=== PATIENT | female | born 1960 | race Asian ===

== ENCOUNTER 2018-01-30 00:48 | Outpatient (RCR) | payer MEDICAID, SELFPAY | END 2018-03-01 | LOC: INF 01-31 00:48 | PROVIDERS: PCP Nurse Practitioner Gerontology; Visit Provider Nurse Practitioner Gerontology | DX: D63.1 Anemia in chronic kidney disease (principal); N18.5 Chronic kidney disease, stage 5; Z94.0 Kidney transplant status | CPT/HCPCS: 96372; J0881 ==

== ENCOUNTER → 2018-01-31 01:09 | Outpatient (CLI) | payer MEDICAID, SELFPAY ==
[2018-01-31 10:17] LABS: Kit/Specimen SENT
[2018-01-31 10:21] LABS: HCT 30.6 % (36.0-46.0); HGB 9.5 g/dL (12.0-15.5)
[2018-01-31 11:18] LABS: Anion Gap 12.3 mmol/L (3-11); CO2 22.7 mmol/L (21.0-32.0); Calcium 8.9 mg/dL (8.5-10.1); Chloride 107 mmol/L (98-107); Estimated GFR 6.76 (mL/min/1.73m2); Glucose 103 mg/dL (70-100); Potassium 4.8 mmol/L (3.5-5.1); Sodium 142 mmol/L (136-145)
[2018-01-31 11:38] LABS: BUN 88 mg/dL (7-18)
[2018-01-31 11:39] LABS: CREATININE 6.32 mg/dL (0.55-1.02)
== END ==
PROVIDERS: PCP Nurse Practitioner Gerontology; Visit Provider Internal Medicine Nephrology
DX: N18.5 Chronic kidney disease, stage 5 (principal); D63.1 Anemia in chronic kidney disease; Z94.0 Kidney transplant status; Z01.818 Encounter for other preprocedural examination
CPT/HCPCS: 36415; 80048; 85014; 85018

== ENCOUNTER 2018-03-05 02:58 | Outpatient (CLI) | payer MEDICAID, SELFPAY ==
[2018-03-05 09:34] LABS: Kit/Specimen SENT
[2018-03-05 09:40] LABS: HCT 26.9 % (36.0-46.0); HGB 8.7 g/dL (12.0-15.5)
[2018-03-05 09:47] LABS: Anion Gap 9.6 mmol/L (3-11); CO2 21.4 mmol/L (21.0-32.0); Calcium 8.4 mg/dL (8.5-10.1); Chloride 103 mmol/L (98-107); Estimated GFR 7.12 (mL/min/1.73m2); Glucose 108 mg/dL (70-100); Potassium 4.9 mmol/L (3.5-5.1); Sodium 134 mmol/L (136-145)
[2018-03-05 10:00] LABS: BUN 84 mg/dL (7-18); CREATININE 6.04 mg/dL (0.55-1.02)
== END 2018-03-05 03:18 ==
PROVIDERS: Internal Medicine Nephrology; PCP Nurse Practitioner Gerontology; Visit Provider Internal Medicine Nephrology
DX: N18.5 Chronic kidney disease, stage 5 (principal); D63.1 Anemia in chronic kidney disease; Z94.0 Kidney transplant status
CPT/HCPCS: 36415; 80048; 85014; 85018

== ENCOUNTER 2018-03-05 09:55 | Outpatient (RCR) | payer MEDICAID, SELFPAY | END 2018-03-31 23:59 | disposition home or self-care (01) | LOC: INF 09:55 | PROVIDERS: PCP Nurse Practitioner Gerontology; Visit Provider Nurse Practitioner Gerontology | DX: D63.1 Anemia in chronic kidney disease (principal); N18.5 Chronic kidney disease, stage 5; Z94.0 Kidney transplant status | CPT/HCPCS: 96372; J0881 ==

== ENCOUNTER 2018-04-02 01:04 | Outpatient (RCR) | payer MEDICAID, SELFPAY | END 2018-05-01 23:59 | disposition home or self-care (01) | LOC: INF 01:04 | PROVIDERS: PCP Nurse Practitioner Gerontology; Visit Provider Nurse Practitioner Gerontology | DX: D63.1 Anemia in chronic kidney disease (principal); N18.5 Chronic kidney disease, stage 5; Z94.0 Kidney transplant status | CPT/HCPCS: 96372; J0881 ==

== ENCOUNTER 2018-04-02 02:26 | Outpatient (CLI) | payer MEDICAID, SELFPAY ==
[2018-04-02 10:20] LABS: Kit/Specimen SENT
[2018-04-02 10:32] LABS: HCT 30.9 % (36.0-46.0); HGB 9.6 g/dL (12.0-15.5)
[2018-04-02 11:02] LABS: Iron 116 ug/dL (50-175); Total Iron Binding Capacity 230 ug/dL (250-450); Transferrin Sat 50 % (15-50)
[2018-04-02 11:39] LABS: Anion Gap 10.4 mmol/L (3-11); BUN 77 mg/dL (7-18); CO2 19.6 mmol/L (21.0-32.0); Calcium 8.4 mg/dL (8.5-10.1); Chloride 110 mmol/L (98-107); Estimated GFR 6.28 (mL/min/1.73m2); Glucose 102 mg/dL (70-100); Potassium 4.8 mmol/L (3.5-5.1); Sodium 140 mmol/L (136-145)
[2018-04-02 11:40] LABS: Ferritin 2000 ng/mL (8-388)
[2018-04-02 11:45] LABS: CREATININE 6.74 mg/dL (0.55-1.02)
== END 2018-04-02 02:46 ==
PROVIDERS: PCP Nurse Practitioner Gerontology; Visit Provider Internal Medicine Nephrology
DX: N18.5 Chronic kidney disease, stage 5 (principal); D63.1 Anemia in chronic kidney disease; Z94.0 Kidney transplant status
CPT/HCPCS: 36415; 80048; 82728; 83540; 83550; 85014; 85018

== ENCOUNTER 2018-04-22 00:50 | Outpatient (CLI) | payer MEDICAID, SELFPAY ==
[2018-04-22 11:13] LABS: HCT 28.5 % (36.0-46.0); HGB 9.1 g/dL (12.0-15.5)
[2018-04-22 13:01] LABS: ALT 29 U/L (12-78); AST 34 U/L (15-37); Albumin 3.3 g/dL (3.4-5.0); Alkaline Phosphatase 125 U/L (46-116); Anion Gap 15.6 mmol/L (3-11); BUN 79 mg/dL (7-18); Bilirubin, Total 0.4 mg/dL (0.2-1.0); CO2 20.4 mmol/L (21.0-32.0); Calcium 8.4 mg/dL (8.5-10.1); Chloride 96 mmol/L (98-107); Estimated GFR 6.77 (mL/min/1.73m2); Glucose 104 mg/dL (70-100); Potassium 4.6 mmol/L (3.5-5.1); Sodium 132 mmol/L (136-145)
[2018-04-22 13:12] LABS: CREATININE 6.29 mg/dL (0.55-1.02)
== END 2018-04-22 01:10 ==
PROVIDERS: Nurse Practitioner Family; PCP Nurse Practitioner Gerontology; Visit Provider Internal Medicine Nephrology
DX: L29.9 Pruritus, unspecified (principal); N18.5 Chronic kidney disease, stage 5; D63.1 Anemia in chronic kidney disease
CPT/HCPCS: 36415; 80053; 85014; 85018

== ENCOUNTER 2018-05-03 02:02 | Outpatient (CLI) | payer MEDICAID, SELFPAY ==
[2018-05-03 10:55] LABS: Kit/Specimen SENT
[2018-05-03 11:01] LABS: HCT 27.3 % (36.0-46.0); HGB 8.9 g/dL (12.0-15.5)
== END 2018-05-03 02:22 ==
PROVIDERS: PCP Nurse Practitioner Family; Visit Provider Internal Medicine Nephrology
DX: Z01.818 Encounter for other preprocedural examination (principal); N18.5 Chronic kidney disease, stage 5; D63.1 Anemia in chronic kidney disease; Z94.0 Kidney transplant status
CPT/HCPCS: 36415; 85014; 85018

== ENCOUNTER 2018-05-06 01:32 | Outpatient (RCR) | payer MEDICAID, SELFPAY | END 2018-05-31 23:59 | disposition home or self-care (01) | LOC: INF 01:32 | PROVIDERS: PCP Nurse Practitioner Family; Visit Provider Nurse Practitioner Gerontology | DX: N18.5 Chronic kidney disease, stage 5 (principal); D63.1 Anemia in chronic kidney disease; Z94.0 Kidney transplant status | CPT/HCPCS: 96372; J0881 ==

== ENCOUNTER 2018-06-04 01:00 | Outpatient (RCR) | payer MEDICAID, SELFPAY | END 2018-07-01 23:59 | disposition home or self-care (01) | LOC: INF 01:00 | PROVIDERS: PCP Nurse Practitioner Family; Visit Provider Nurse Practitioner Gerontology | DX: N18.5 Chronic kidney disease, stage 5 (principal); D63.1 Anemia in chronic kidney disease; Z94.0 Kidney transplant status | CPT/HCPCS: 96372; J0881 ==

== ENCOUNTER 2018-06-04 01:08 | Outpatient (CLI) | payer MEDICAID, SELFPAY ==
[2018-06-04 10:07] LABS: HCT 28.4 % (36.0-46.0)
[2018-06-04 10:08] LABS: Kit/Specimen SENT
[2018-06-04 10:15] LABS: Anion Gap 11.9 mmol/L (3-11); CO2 22.1 mmol/L (21.0-32.0); Calcium 8.8 mg/dL (8.5-10.1); Chloride 105 mmol/L (98-107); Glucose 106 mg/dL (70-100); Potassium 4.5 mmol/L (3.5-5.1); Sodium 139 mmol/L (136-145)
[2018-06-04 10:26] LABS: BUN 95 mg/dL (7-18); CREATININE 7.19 mg/dL (0.55-1.02)
== END 2018-06-04 01:28 ==
PROVIDERS: PCP Nurse Practitioner Family; Visit Provider Internal Medicine Nephrology
DX: N18.5 Chronic kidney disease, stage 5 (principal); D63.1 Anemia in chronic kidney disease; Z94.0 Kidney transplant status
CPT/HCPCS: 36415; 80048; 85014; 85018

== ENCOUNTER 2018-06-20 02:57 | Outpatient (CLI) | payer MEDICAID, SELFPAY ==
[2018-06-20 10:38] LABS: Kit/Specimen SENT
== END 2018-06-20 03:17 ==
PROVIDERS: PCP Nurse Practitioner Family; Visit Provider Internal Medicine Nephrology
DX: D63.1 Anemia in chronic kidney disease (principal); Z94.0 Kidney transplant status
CPT/HCPCS: 36415

== ENCOUNTER 2018-07-04 02:22 | Outpatient (RCR) | payer MEDICAID, SELFPAY ==
[2018-07-04] MEDS: Darbepoetin 200 MCG SYR SC (10:22)
== END 2018-08-01 23:59 | disposition home or self-care (01) ==
LOC: INF 02:22
PROVIDERS: PCP Nurse Practitioner Family; Visit Provider Nurse Practitioner Gerontology
DX: N18.5 Chronic kidney disease, stage 5 (principal); D63.1 Anemia in chronic kidney disease; Z94.0 Kidney transplant status
CPT/HCPCS: 96372; J0881

== ENCOUNTER 2018-07-04 02:28 | Outpatient (CLI) | payer MEDICAID, SELFPAY ==
[2018-07-04 09:56] LABS: Kit/Specimen SENT
[2018-07-04 10:03] LABS: HCT 28.2 % (36.0-46.0); HGB 8.8 g/dL (12.0-15.5)
[2018-07-04 10:50] LABS: Anion Gap 10.9 mmol/L (3-11); CO2 24.1 mmol/L (21.0-32.0); Calcium 8.7 mg/dL (8.5-10.1); Chloride 107 mmol/L (98-107); Estimated GFR 6.37 (mL/min/1.73m2); Glucose 97 mg/dL (70-100); Potassium 4.5 mmol/L (3.5-5.1); Sodium 142 mmol/L (136-145)
[2018-07-04 11:04] LABS: BUN 82 mg/dL (7-18)
[2018-07-04 11:05] LABS: CREATININE 6.63 mg/dL (0.55-1.02); Ferritin > 1000 ng/mL (8-388)
[2018-07-04 11:27] LABS: Iron 111 ug/dL (50-175); Total Iron Binding Capacity 207 ug/dL (250-450); Transferrin Sat 54 % (15-50)
== END 2018-07-04 02:48 ==
PROVIDERS: PCP Nurse Practitioner Family; Visit Provider Internal Medicine Nephrology
DX: N18.5 Chronic kidney disease, stage 5 (principal); Z94.0 Kidney transplant status; D63.1 Anemia in chronic kidney disease
CPT/HCPCS: 36415; 80048; 82728; 83540; 83550; 85014; 85018

== ENCOUNTER 2018-08-02 00:26 | Outpatient (RCR) | payer MEDICAID, SELFPAY ==
[2018-08-02] MEDS: Darbepoetin 200 MCG SYR SC (11:19)
== END 2018-08-29 23:59 | disposition home or self-care (01) ==
LOC: INF 00:26
PROVIDERS: PCP Nurse Practitioner Family; Visit Provider Nurse Practitioner Gerontology
DX: N18.5 Chronic kidney disease, stage 5 (principal); D63.1 Anemia in chronic kidney disease
CPT/HCPCS: 96372; J0881

== ENCOUNTER 2018-08-02 00:49 | Outpatient (CLI) | payer MEDICAID, SELFPAY ==
[2018-08-02 10:46] LABS: Kit/Specimen SENT
[2018-08-02 10:53] LABS: HCT 31.5 % (36.0-46.0); HGB 9.9 g/dL (12.0-15.5)
[2018-08-02 11:02] LABS: Anion Gap 13.1 mmol/L (3-11); CO2 20.9 mmol/L (21.0-32.0); Calcium 8.9 mg/dL (8.5-10.1); Chloride 104 mmol/L (98-107); Glucose 110 mg/dL (70-100); Potassium 4.9 mmol/L (3.5-5.1); Sodium 138 mmol/L (136-145)
[2018-08-02 11:17] LABS: BUN 106 mg/dL (7-18)
[2018-08-02 11:18] LABS: CREATININE 8.19 mg/dL (0.55-1.02)
== END 2018-08-02 01:09 ==
PROVIDERS: Internal Medicine Nephrology; PCP Nurse Practitioner Family; Visit Provider Internal Medicine Nephrology
DX: Z01.818 Encounter for other preprocedural examination (principal); N18.5 Chronic kidney disease, stage 5; Z94.0 Kidney transplant status; D63.1 Anemia in chronic kidney disease
CPT/HCPCS: 36415; 80048; 85014; 85018

== ENCOUNTER 2018-08-31 01:36 | Outpatient (CLI) | payer MEDICAID, SELFPAY ==
[2018-08-31 10:34] LABS: Kit/Specimen SENT
[2018-08-31 10:47] LABS: HCT 30.9 % (36.0-46.0); HGB 9.6 g/dL (12.0-15.5)
== END 2018-08-31 01:56 ==
PROVIDERS: PCP Nurse Practitioner Family; Visit Provider Internal Medicine Nephrology
DX: N18.5 Chronic kidney disease, stage 5 (principal); D63.1 Anemia in chronic kidney disease; Z01.818 Encounter for other preprocedural examination
CPT/HCPCS: 36415; 85014; 85018

== ENCOUNTER 2018-09-24 01:28 | Outpatient (RCR) | payer MEDICAID, SELFPAY | END 2018-09-29 23:59 | disposition home or self-care (01) | LOC: INF 01:28 | PROVIDERS: PCP Nurse Practitioner Family; Visit Provider Internal Medicine | DX: R69 Illness, unspecified (principal) ==

== ENCOUNTER 2018-10-02 04:18 | Outpatient (RCR) | payer MEDICAID, SELFPAY ==
[2018-10-02] MEDS: Darbepoetin 300 MCG SYR SC (10:47)
== END 2018-10-29 23:59 | disposition home or self-care (01) ==
LOC: INF 04:18
PROVIDERS: PCP Nurse Practitioner Family; Visit Provider Internal Medicine
DX: N18.5 Chronic kidney disease, stage 5 (principal); D63.1 Anemia in chronic kidney disease
CPT/HCPCS: 96372; J0881

== ENCOUNTER 2018-10-02 04:26 | Outpatient (CLI) | payer MEDICAID, SELFPAY ==
[2018-10-02 10:42] LABS: Kit/Specimen SENT
[2018-10-02 11:11] LABS: HCT 25.5 % (36.0-46.0); HGB 8.3 g/dL (12.0-15.5)
[2018-10-02 11:25] LABS: Iron 180 ug/dL (50-175); Total Iron Binding Capacity 225 ug/dL (250-450); Transferrin Sat 80 % (15-50)
[2018-10-02 12:10] LABS: Ferritin 1999 ng/mL (8-388)
== END 2018-10-02 04:46 ==
PROVIDERS: PCP Nurse Practitioner Family; Visit Provider Internal Medicine Nephrology
DX: N18.5 Chronic kidney disease, stage 5 (principal); D63.1 Anemia in chronic kidney disease; Z01.818 Encounter for other preprocedural examination
CPT/HCPCS: 36415; 82728; 83540; 83550; 85014; 85018

== ENCOUNTER 2018-11-04 15:08 | Outpatient (CLI) | payer MEDICARE, MEDICAID, SELFPAY ==
[2018-11-04 15:31] LABS: Kit/Specimen SENT
[2018-11-04 15:43] LABS: HCT 24.4 % (36.0-46.0); HGB 7.3 g/dL (12.0-15.5)
== END 2018-11-04 15:28 ==
PROVIDERS: Internal Medicine Nephrology; PCP Nurse Practitioner Family; Visit Provider Internal Medicine Nephrology
DX: N18.5 Chronic kidney disease, stage 5 (principal); D63.1 Anemia in chronic kidney disease; Z01.818 Encounter for other preprocedural examination
CPT/HCPCS: 36415; 85014; 85018

== ENCOUNTER 2018-11-05 01:48 | Outpatient (RCR) | payer MEDICAID, SELFPAY | END 2018-11-29 23:59 | disposition home or self-care (01) | LOC: INF 01:48 | PROVIDERS: PCP Nurse Practitioner Family; Visit Provider Internal Medicine | DX: N18.5 Chronic kidney disease, stage 5 (principal); D63.1 Anemia in chronic kidney disease ==

== ENCOUNTER 2018-12-16 01:52 | Outpatient (RCR) | payer MEDICARE, MEDICAID, SELFPAY ==
[2018-12-02] MEDS: Normal Saline Flush 10 ML SYR IVP (10:44)
[2018-12-09] MEDS: Normal Saline Flush 10 ML SYR IVP (10:42)
[2018-12-16] MEDS: Normal Saline Flush 10 ML SYR IVP (10:44)
== END 2018-12-29 23:59 | disposition home or self-care (01) ==
LOC: INF 01:52
PROVIDERS: PCP Nurse Practitioner Family; Visit Provider Internal Medicine
DX: N18.5 Chronic kidney disease, stage 5 (principal); D63.1 Anemia in chronic kidney disease; D50.9 Iron deficiency anemia, unspecified
CPT/HCPCS: 96365; J1756

== ENCOUNTER 2019-02-18 14:21 | Observation (INO) | payer MEDICARE, MEDICAID, SELFPAY ==
[2019-02-18] VITALS (48 sets, daily range): BP systolic 145–195; BP diastolic 58–107; PULSE 69–90; RESP 13–28; TEMP 37–37.2; O2SAT 91–100
[2019-02-18] MEDS: Normal Saline 250 ML IV (14:50)
--- NOTE | 2019-02-18 14:51 | ED.GENADUL_ITS ---
Discharge Plan Disposition Patient Disposition: [facility] INPATIENT Condition: Stable Discharge Details Chief Complaint: Chest Pain Clinical Impression: Chest pain, rule out acute myocardial infarction, Chronic shortness of breath, ESRD on peritoneal dialysis Admit Date/Time: 02/18/19 18:06 Admit Provider: Zenon Perez Attending Provider: Zenon Perez Primary Care Provider: Annabel Macdonald ED Provider: Charu Agosto Medical Decision Making 58-year-old female with history of chronic kidney disease due to hypertension and status post kidney transplant currently on peritoneal dialysis for the past few years who presents with shortness of breath that is worse with sitting over the past several months and chest pain since 1 PM today. EKG on arrival notes a rate of 83, sinus with no acute ST ischemic changes. Upon my assessment, patient appears very uncomfortable, grabbing her chest. Blood pressure hypertensive, otherwise vitals within normal limits. She appears mildly anxious. Labs ordered on arrival by nurse and note a normal white blood cell count, hemoglobin 9.4, BUN 75, creatinine 13, range usually between 6 and 8, last check in August 2018. Troponin 0.11. Chest x-ray negative. Patient given nitro with minimal relief. She was given a dose of Ativan and still appeared uncomfortable. 1600 --patient still appears uncomfortable, moving around and restless in bed. Vitals within normal limits. She denies any chest pain and states she feels short of breath with sitting and is relieved more with sitting forward or standing which she has had for several months. Will place patient on 2 L nasal cannula and give a dose of morphine. As patient cannot stay here due to peritoneal dialysis, will page [facility] for transfer for chest pain. 1700 --discussed with [facility] transfer center -no beds available. Discussed with nephrology Dr. Chowdhury -presentation may be consistent with pericarditis. As for her peritoneal dialysis, she would not need her peritoneal dialysis tonight. Her creatinine in October at [facility] was 12.9. Dr. Christopher recommends admission here overnight for transfer to [facility] in the a.m. once bed available. She likely will need an echo and its possible her membranes are failing with her peritoneal dialysis and she may eventually need hemodialysis. 1729 --discussed with hospitalist -accepts patient for admission. 1844 --discussed with Aly at the [facility] transfer center -who discussed with hospitalist Dr. Whitt -if patient still needing transfer in the a.m., to call [facility] for transfer after 7 AM tomorrow and they will accept patient for transfer. This was discussed with Dr. Perez. Medical Records Medical records reviewed: Yes I reviewed the patient's medical records. Imaging Data Radiologic Study: Radiologist's impression: PA AND LATERAL CHEST: The heart is normal in size. The lungs are clear. The mediastinal structures and pleura appear intact. CONCLUSION: Normal chest. ECG Data Attestation: I personally reviewed and interpreted this ECG (s) as follows: Interpretation: Rate of 83, sinus, no acute ST elevation or depression. UT 144. QTc 463. QRS 92. No acute ST elevation or depression. HPI General Mode of arrival: ambulatory . Date/Time Provider Initiated Documentation: 02/18/19 14:40 . Limitations to Documentation: no limitations . Information obtained by: patient . HPI Narrative: Patient is a 58-year-old female with a history of end-stage renal disease with kidney transplant due to hypertension, vaginal neoplasia, anemia who presents with shortness of breath for several months and chest pain since 1 PM today. Patient states she was sitting in a car today after breakfast when she felt short of breath and developed substernal chest pain. She denies radiation of pain. She admits to a dry cough. She denies any fever, nausea, vomiting or dizziness. She states she has had chronic shortness of breath for the past several months which is brought on with sitting and resolved with leaning forward or standing. She states she has been doing home peritoneal dialysis for the past several years and lasted today at noon. Related Data Home Medications Medication Instructions Recorded Confirmed allopurinol 100 mg PO DAILY 02/18/19 02/18/19 amoxicillin 2,000 mg 02/18/19 calcitriol See Rx Instructions .ROUTE .COMPLEX 02/18/19 02/18/19 diltiazem HCl [DILT-XR] 120 mg PO DAILY 02/18/19 02/18/19 lisinopril 5 mg PO DAILY 02/18/19 02/18/19 prednisone 20 mg PO DAILY 02/18/19 02/18/19 sevelamer carbonate [Renvela] 1,600 mg 02/18/19 tacrolimus 1 mg PO BID 02/18/19 02/18/19 Allergies Allergy/AdvReac Type Severity Reaction Status Date / Time lidocaine Allergy Severe RASH Unverified 02/13/19 15:23 milk AdvReac Mild DIARRHEA Unverified 02/13/19 15:23 General Stated Complaint: Chest Pain CJ: 2 Review of Systems Review of Systems All systems reviewed & are unremarkable except as noted in HPI and below Constitutional Reports as per HPI, Denies chills and Denies fever(s) Eyes Denies blurry vision ENT Denies dizziness, Denies sore throat and Denies throat swelling Cardiovascular Reports chest pain and Reports dyspnea Respiratory Denies cough and Reports dyspnea Gastrointestinal Denies abdominal pain, Denies diarrhea and Denies vomiting Genitourinary Denies hematuria and Denies dysuria Musculoskeletal Denies back pain and Denies numbness Integumentary/Breasts Denies lesions and Denies rash Neurologic Denies dizziness, Denies focal weakness and Denies numbness Allergic/Immunologic Denies throat swelling [facility] Medical History Anemia in chronic kidney disease (CKD) (Chronic) Chronic kidney disease (CKD) stage G5/A3, glomerular filtration rate (GFR) less than or equal to 15 mL/min/1.73 square meter and albuminuria creatinine ratio greater than 300 mg/g (Chronic) Essential hypertension (Chronic 12/24/12) Gout (Inactive 01/16/18) Hypertensive nephrosclerosis (Inactive) Kidney replaced by transplant (Chronic ~10/04/05) Rectocele (Acute) Renal failure (Resolved) Secondary hyperparathyroidism of renal origin (Chronic) 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 Abdominal hysterectomy (01/16/09) section Endometrial Ablation laser of VAIN 2. S/p cadaver renal transplant (Inactive ~10/04/05) Social History Smoking/Tobacco Use Status: Never Alcohol Intake: never Substance use type: does not use Adopted: Yes Household members: other Details: H-Dennis. 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 Robert works in computer development Exam Const General: cooperative, healthy appearing, no acute distress and anxious HENMT Head: normal to inspection Face and sinus: normal facial exam Eyes General: appearance normal, both eyes and all related structures EOM: EOM intact bilaterally Neck Neck: normal visual inspection and No submandibular swelling Lymphatic: no lymphadenopathy noted Chest Chest: normal inspection of the chest and no tenderness Resp Effort & Inspection: normal respiratory effort and able to speak in complete sentences Auscultation: clear to auscultation bilaterally Cardio Rate: regular rate Rhythm: regular rhythm GI Inspection: normal to inspection and other (Peritoneal dialysis catheter noted RLQ, no signs of drainage) Palpation: soft, not firm, not rigid and nontender Auscultation: normal bowel sounds Skin General skin exam: no rashes or lesions noted Neuro General: alert, awake and oriented x3 Cognition: normal cognition Speech: speech normal Motor: muscle tone normal throughout Sensory Exam: no sensory deficits noted Extrem General: normal to inspection, full ROM, normal capillary refill, no calf tenderness bilaterally and no edema Psych Appearance: grossly normal Mental Status: mental status grossly normal Speech and Movement: speech and movement normal Affect: normal affect Course Vital Signs Pulse Oximetry 100 02/18/19 14:27 Temperature 98.6 F 02/18/19 14:32 Temperature Source Skin 02/18/19 14:32 Pulse 75 02/18/19 14:32 Pulse 78 02/18/19 14:31 Respiratory Rate 22 02/18/19 14:32 Respiratory Effort 02/18/19 14:43 Blood Pressure 185/88 H 02/18/19 14:32 Blood Pressure Mean 109 02/18/19 14:31 Blood Pressure Position Supine 02/18/19 14:32 Pulse Oximetry 100 02/18/19 14:32 Oxygen Delivery Method Room Air 02/18/19 14:32 Oxygen Flow Rate 0 02/18/19 14:32
[2019-02-18 14:57] LABS: Abs Immature Grans 0.02 k/cumm (0.0-0.09); Absolute Basophil Count 0.02 k/cumm (0.0-0.2); Absolute Eosinophil Count 0.32 k/cumm (0.0-0.7); Absolute Lymphocyte Count 1.34 k/cumm (1.2-3.4); Absolute Monocyte Count 0.44 k/cumm (0.11-0.7); Absolute Neutrophil Count 6.42 k/cumm (1.2-6.7); Basophils % 0.2; Eosinophils % 3.7; HGB 9.4 g/dL (12.0-15.5); Immature Grans % 0.2; Lymphocytes % 15.7; Mean Corp. HGB Concentration 32.4 g/dL (32.0-36.0); Mean Corpuscular Hemoglobin 29.7 pg (27.0-33.0); Mean Corpuscular Volume 91.8 fL (80-95); Mean Platelet Volume 9.2 fL (8.0-11.0); Monocytes % 5.1; Neutrophils % 75.1; Platelet Count 198 x1000/uL (130-400); RBC 3.16 m/cumm (4.00-5.20); White Blood Cell Count 8.56 k/cumm (4.4-10.8)
--- NOTE | 2019-02-18 15:07 | DI.RAD_ITS ---
SYMPTOMS/DIAGNOSIS: SHORTNESS OF BREATH PA AND LATERAL CHEST: The heart is normal in size. The lungs are clear. The mediastinal structures and pleura appear intact. CONCLUSION: Normal chest.
[2019-02-18 15:17] LABS: INR 0.9 (0.9-1.1); Macrocytosis 1+; Polychromasia Present
[2019-02-18] MEDS: LORazepam 2 MG/ML VIAL (15:36)
[2019-02-18 15:39] LABS: ALT 24 U/L (12-78); AST 45 U/L (15-37); Albumin 2.1 g/dL (3.4-5.0); Alkaline Phosphatase 92 U/L (46-116); Anion Gap 15.8 mmol/L (3-11); BUN 75 mg/dL (7-18); Bilirubin, Direct 0.12 mg/dL (0.00-0.20); Bilirubin, Total 0.4 mg/dL (0.2-1.0); CO2 27.2 mmol/L (21.0-32.0); Calcium 9.6 mg/dL (8.5-10.1); Chloride 97 mmol/L (98-107); Estimated GFR 2.74 (mL/min/1.73m2); Glucose 96 mg/dL (70-100); Magnesium 2.5 mg/dL (1.8-2.4); NT-proBNP 2542 pg/mL; Potassium 4.3 mmol/L (3.5-5.1); Sodium 140 mmol/L (136-145)
[2019-02-18 15:40] LABS: CREATININE 13.79 mg/dL (0.55-1.02)
[2019-02-18 15:41] LABS: Troponin I 0.11 ng/mL (0.00-0.06)
--- NOTE | 2019-02-18 16:00 | NUR.NOTE ---
Nursing Note: pt continue to c/o SOB, denies chest pain at this time. MD Agosto at bedside.
--- NOTE | 2019-02-18 17:53 | W.PM.HP.N ---
Date of service: 02/18/19 Time of Service: 17:54 Assessment and Plan (1) Chest pain: Current visit: Yes Status: Acute CP, etiology not apparent. No specific findings of ACS but will complete serial troponins. No findings of pericarditis. Doubt PE, low risk in CRF. The orthopnea is noted, may need more aggressive fluid regimen. Increased BNP of uncertain significance in setting of CRF and no physical findings suggestive of volume overload. Will plan on transfer in AM as per nephrology and in any case will need dialysis. History of Present Illness Chief Complaint: CP Narrative: 58 female with CRF on peritoneal dialysis (Note had already today). Here with severak hours of CP. In ER no specific findings, case was discussed with her medical device assembler who wished to have her transferred but requested overnight stay here pending bed availability in AM. Initial CXR, EKG unremarkable; troponin marrginal at 0.11 and BNP 2542. Patient given Ativan and morphine and became completely sedated, unable to provide any history, above obtained from ER and . Note that patient has had variable periodd of orthopnea (2 months per ER, one week peer ); no ankle swelling. Review of Systems Review of Systems Unobtainable due to mental status ON LICENSE OF [facility] Medical History Anemia in chronic kidney disease (CKD) (Chronic) Chronic kidney disease (CKD) stage G5/A3, glomerular filtration rate (GFR) less than or equal to 15 mL/min/1.73 square meter and albuminuria creatinine ratio greater than 300 mg/g (Chronic) Essential hypertension (Chronic 12/24/12) Gout (Inactive 01/16/18) Hypertensive nephrosclerosis (Inactive) Kidney replaced by transplant (Chronic ~10/04/05) Rectocele (Acute) Renal failure (Resolved) Secondary hyperparathyroidism of renal origin (Chronic) 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 Abdominal hysterectomy (01/16/09) section Endometrial Ablation laser of VAIN 2. S/p cadaver renal transplant (Inactive ~10/04/05) Social History Smoking/Tobacco Use Status: Never Alcohol Intake: never Substance use type: does not use Adopted: Yes Household members: other Details: Kp. 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 Robert works in [employer] Medications Medication Instructions Recorded Confirmed Type allopurinol 100 mg PO DAILY 02/18/19 02/18/19 History amoxicillin 2,000 mg 02/18/19 History calcitriol See Rx Instructions .ROUTE .COMPLEX 02/18/19 02/18/19 History diltiazem HCl [DILT-XR] 120 mg PO DAILY 02/18/19 02/18/19 History lisinopril 5 mg PO DAILY 02/18/19 02/18/19 History prednisone 20 mg PO DAILY 02/18/19 02/18/19 History sevelamer carbonate [Renvela] 1,600 mg 02/18/19 History tacrolimus 1 mg PO BID 02/18/19 02/18/19 History Allergies Allergy/AdvReac Type Severity Reaction Status Date / Time lidocaine Allergy Severe RASH Unverified 02/13/19 15:23 milk AdvReac Mild DIARRHEA Unverified 02/13/19 15:23 Exam Narrative Exam Narrative: 155/76, 79, 19, 37.0. HEENT atraumatic; neck supple; lungs clear; heart RRR w/o M/R/G; abdomen soft NT; extr no edema, + thrill right wrist; neuro unresponsive to voice and light touch Results Labs : 02/18/19 14:45 02/18/19 14:45 Laboratory Results - last 24 hr 02/18/19 02/18/19 02/18/19 14:45 14:45 14:45 WBC 8.56 RBC 3.16 L Hgb 9.4 L Hct 29.0 L MCV 91.8 MCH 29.7 MCHC 32.4 RDW 16.0 H Plt Count 198 MPV 9.2 Immature Gran % 0.2 Neutrophils % 75.1 Lymphocytes % 15.7 Monocytes % 5.1 Eosinophils % 3.7 Basophils % 0.2 Absolute Neutrophils 6.42 Absolute Lymphocytes 1.34 Absolute Monocytes 0.44 Absolute Eosinophils 0.32 Absolute Basophils 0.02 RBC Morphology See below Polychromasia Present Macrocytosis 1+ PT 9.0 L INR 0.9 Sodium 140 Potassium 4.3 Chloride 97 L Carbon Dioxide 27.2 Anion Gap 15.8 H BUN 75 H Creatinine 13.79 H* Estimated GFR/1.73 m2 2.74 Glucose 96 Calcium 9.6 Magnesium 2.5 H Total Bilirubin 0.4 Conjugated Bilirubin 0.12 AST 45 H ALT 24 Alkaline Phosphatase 92 Troponin I 0.11 H* NT-Pro-B Natriuret Pep 2542 H Total Protein 7.0 Albumin 2.1 L Last Vital Signs Temp 37.0 C 02/18/19 14:32 Pulse 86 02/18/19 15:46 Resp 21 02/18/19 15:50 BP 155/96 H 02/18/19 15:46 Pulse Ox 99 02/18/19 15:50
--- NOTE | 2019-02-18 20:56 | NUR.NOTE ---
RN attempted to complete home medication reconciliation. Patient falling asleep multiple times throughout attempt, unable to provide acurate medication history. RN called , Dennis, at 2045h with attempt to complete. unaware of patients' medication routine and unable to provide medication history. Will readdress when patient is more alert.
[2019-02-18] MEDS: Tacrolimus 0.5 MG CAP PO (21:12)
[2019-02-19] VITALS: TEMP 36.7
[2019-02-19 00:01] VITALS: BP 157/80; PULSE 74; PULSE 75; RESP 17; O2SAT 97
[2019-02-19 04:00] VITALS: BP 164/71; PULSE 76; RESP 22; O2SAT 97
[2019-02-19 06:57] VITALS: PULSE 67
[2019-02-19 07:36] LABS: Troponin I 0.09 ng/mL (0.00-0.06)
[2019-02-19 08:07] VITALS: BP 153/66; PULSE 68; PULSE 70; RESP 22
[2019-02-19] MEDS: Tacrolimus 0.5 MG CAP 1 MG PO (08:23)
[2019-02-19] MEDS: Allopurinol 100 MG TAB PO (08:24)
[2019-02-19] MEDS: dilTIAZem CD 120 MG CAPCR PO (08:24)
--- NOTE | 2019-02-19 09:43 | DSE_ITS ---
Date of service: 02/19/19 Time of Service: 09:43 DS: Diagnosis Discharge Diagnosis (1) Chest pain: Status: Acute Discharge Plan Disposition Patient Disposition: HOME Condition: Stable Discharge Details Chief Complaint: Chest Pain Clinical Impression: Chest pain, rule out acute myocardial infarction, Chronic shortness of breath, ESRD on peritoneal dialysis Reason For Visit: CP Admit Date/Time: 02/18/19 18:06 Admit Provider: Zenon Perez Attending Provider: Zenon Perez Primary Care Provider: Annabel Macdonald ED Provider: Charu Agosto Hospital Course Hospital Course: Chief Complaint: Chest Pain, Dyspnea HPI: 58 year old woman with a prior history of ESRD on PD, admitted overnight on 02/18 with complaints of CP and Dyspnea. Mrs. Jerome has a prior history of HTN, ESRD s/p prior kidney transplant, currently on Peritoneal Dialysis, and Anemia of Chronic Disease. The patient has been experiencing dyspnea for a few months, and acute onset CP on the day of admission. Work-up in the ED was remarkable for a BUN of 75 and Creatinine of 13 (value of 12.9 at [facility] in October, per ED report), and a troponin of 0.11. Her ECG showed NSR, LAD, and a downward deflecting Q waves isolated in V1 that appeared unchanged from 2017 and likely non-pathologic. She received a dose of Morphine and Ativan with improvement in discomfort. Her troponin level was cycled and remained essentially unchanged at 0.11 --> 0.1, 0.09, and no events were noted by telemetry. This morning she reports having slept very well overnight, and without any further chest discomfort since prior to her admission. Mrs. Jerome requires Peritoneal Dialysis, due last night. She is asymptomatic, without ischemic ECG changes, and with minimal, unchanged, and equivocal elevation in troponin that is likely due to a lack of clearance from ESRD. She should have further cardiac work-up, but as she is not able to receive her dialysis while hospitalized at this institution, and given that is now overdue for this, the patient is opting to be discharged home. She was advised to follow-up with her Shingle Catcher and PCP very soon, and she reports having appointments already made for within one week. Her CXR was unremarkable and she is not volume overloaded at time of discharge, and her BNP of 2500 is likely on the basis of her kidney disease. The patient should eventually undergo and ischemic evaluation, but again due to the above limitations and need for dialysis decision was made with patient to pursue this as an outpatient. She was advised to return to the hospital if she had any recurrence of her chest discomfort. Home Meds and New Rx's Prescriptions: Continued sevelamer carbonate [Renvela] 800 mg Tablet 1,600 mg PO QMEALS RF: 0 tacrolimus 0.5 mg Capsule 1 mg PO DAILY AM RF: 0 diltiazem HCl [DILT-XR] 120 mg Capsule,Ext.Rel 24h Degradable 120 mg PO DAILY RF: 0 allopurinol 100 mg Tablet 100 mg PO DAILY RF: 0 tacrolimus 0.5 mg Capsule 0.5 mg PO HS RF: 0 Vitamin C 100 mg Tablet RF: 0 aspirin 81 mg Tablet,Delayed Release (Dr/Ec) 81 mg PO DAILY RF: 0 B12 5,000-100 mcg Lozenge SUBLINGUAL RF: 0 Discharge Instructions Activity:: No strenuous activity Equipment/Supplies:: No Equipment Needed Diet:: Renal diet Discharge Orders Discharge Orders: Discharge Order (Routine); Ordered 02/19/19 Ordered By: Bhargav Phillips DS: Data Vitals/I&O Vitals and I&O: Vital Signs Temperature 36.7 C 02/19/19 00:00 Temperature Source Temporal Artery Scan 02/19/19 00:00 Pulse 70 02/19/19 08:07 Pulse Rhythm Regular 02/19/19 08:15 Pulse 68 02/19/19 08:07 Respiratory Rate 22 02/19/19 08:07 Respiratory Effort Non-Labored 02/19/19 08:15 Respiratory Depth Normal 02/19/19 08:15 Respiratory Pattern Normal 02/19/19 08:15 Blood Pressure 153/66 H 02/19/19 08:07 Blood Pressure Mean 88 02/19/19 08:07 Blood Pressure Position Supine 02/18/19 14:32 Pulse Oximetry 97 02/19/19 04:00 Oxygen Delivery Method Room Air 02/19/19 04:00 Oxygen Flow Rate 0 02/19/19 04:00 Pain Level 0 02/19/19 00:00 Intake & Output 02/18/19 02/18/19 02/19/19 11:59 23:59 11:59 Intake Total 250 / 250 480 / 480 Output Total 60 / 60 125 / 125 Balance 190 / 190 355 / 355 Weight 49.2 kg 48.6 kg Intake: IV 250 / 250 Oral 480 / 480 Output: Urine 60 / 60 125 / 125 Other: Urine Color Yellow Yellow Urine Appearance Cloudy Comment Baseline. Peritoneal dialysis catheter in place RLQ. Dsg CDI. Taped to abdomen. Fistula present LFA, +bruit/thirll. 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 ESRD. Periotoneal dialysis catheter present RLQ. Dressing CDI, Taped to abdomen. LFA Fistual present, no drainage, strong thrill/bruit. Voiding Methods Bedside Commode Bedside Commode Completed studies during hospitalization [Text1]: Exam(s) a RAD:XR chest 2V PA & lateral SYMPTOMS/DIAGNOSIS: SHORTNESS OF BREATH PA AND LATERAL CHEST: The heart is normal in size. The lungs are clear. The mediastinal structures and pleura appear intact. CONCLUSION: Normal chest. Labs on day of discharge: Labs from last 24 hours 02/19/19 02/18/19 02/18/19 06:25 18:10 14:45 WBC RBC Hgb Hct MCV MCH MCHC RDW Plt Count MPV Immature Gran % Neutrophils % Lymphocytes % Monocytes % Eosinophils % Basophils % Absolute Neutrophils Absolute Lymphocytes Absolute Monocytes Absolute Eosinophils Absolute Basophils RBC Morphology Polychromasia Macrocytosis PT 9.0 L INR 0.9 Sodium Potassium Chloride Carbon Dioxide Anion Gap BUN Creatinine Estimated GFR/1.73 m2 Glucose Calcium Magnesium Total Bilirubin Conjugated Bilirubin AST ALT Alkaline Phosphatase Troponin I 0.09 H* 0.10 H* NT-Pro-B Natriuret Pep Total Protein Albumin 02/18/19 02/18/19 14:45 14:45 WBC 8.56 RBC 3.16 L Hgb 9.4 L Hct 29.0 L MCV 91.8 MCH 29.7 MCHC 32.4 RDW 16.0 H Plt Count 198 MPV 9.2 Immature Gran % 0.2 Neutrophils % 75.1 Lymphocytes % 15.7 Monocytes % 5.1 Eosinophils % 3.7 Basophils % 0.2 Absolute Neutrophils 6.42 Absolute Lymphocytes 1.34 Absolute Monocytes 0.44 Absolute Eosinophils 0.32 Absolute Basophils 0.02 RBC Morphology See below Polychromasia Present Macrocytosis 1+ PT INR Sodium 140 Potassium 4.3 Chloride 97 L Carbon Dioxide 27.2 Anion Gap 15.8 H BUN 75 H Creatinine 13.79 H* Estimated GFR/1.73 m2 2.74 Glucose 96 Calcium 9.6 Magnesium 2.5 H Total Bilirubin 0.4 Conjugated Bilirubin 0.12 AST 45 H ALT 24 Alkaline Phosphatase 92 Troponin I 0.11 H* NT-Pro-B Natriuret Pep 2542 H Total Protein 7.0 Albumin 2.1 L PFSH Medical History Anemia in chronic kidney disease (CKD) (Chronic) Chronic kidney disease (CKD) stage G5/A3, glomerular filtration rate (GFR) less than or equal to 15 mL/min/1.73 square meter and albuminuria creatinine ratio greater than 300 mg/g (Chronic) Essential hypertension (Chronic 12/24/12) Gout (Inactive 01/16/18) Hypertensive nephrosclerosis (Inactive) Kidney replaced by transplant (Chronic ~10/04/05) Rectocele (Acute) Renal failure (Resolved) Secondary hyperparathyroidism of renal origin (Chronic) 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 Abdominal hysterectomy (01/16/09) section Endometrial Ablation laser of VAIN 2. S/p cadaver renal transplant (Inactive ~10/04/05) Social History Smoking/Tobacco Use Status: Never Alcohol Intake: never Substance use type: does not use Adopted: Yes Household members: other Details: Kp. 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 Robert works in [employer]
--- NOTE | 2019-02-19 13:22 | CHAPLAIN ---
I visited with Rocky shortly before she was discharged, and gave her a prayer shawl. She talked about that a good night's sleep she had and how much she was looking forward to going home.
== END 2019-02-19 10:45 | disposition home or self-care (01) ==
LOC: ER 18:17 → ICU 18:49
PROVIDERS: Admitting Provider General Practice; Emergency Provider Physician Assistant; PCP Nurse Practitioner Family; Visit Provider Internal Medicine
DX: R07.9 Chest pain, unspecified (principal); R06.02 Shortness of breath; N18.6 End stage renal disease; Z99.2 Dependence on renal dialysis; Z94.0 Kidney transplant status; I12.0 Hypertensive chronic kidney disease with stage 5 chronic kidney disease or end stage renal disease
CPT/HCPCS: 36415; 80053; 80076; 93005; 96365; 96375; 99217; 99222; 99285; 71046; 83735; 83880; 84484; 85025; 85610; 93010; 99219; G0378; J2060; J3490

== ENCOUNTER 2019-03-28 10:19 | Outpatient (CLI) | payer MEDICARE, MEDICAID, SELFPAY ==
[2019-03-28 10:54] LABS: Abs Immature Grans 0.01 k/cumm (0.0-0.09); Absolute Basophil Count 0.01 k/cumm (0.0-0.2); Absolute Eosinophil Count 0.26 k/cumm (0.0-0.7); Absolute Lymphocyte Count 0.92 k/cumm (1.2-3.4); Absolute Monocyte Count 0.37 k/cumm (0.11-0.7); Absolute Neutrophil Count 4.02 k/cumm (1.2-6.7); Basophils % 0.2; Eosinophils % 4.7; HCT 29.8 % (36.0-46.0); HGB 9.5 g/dL (12.0-15.5); Immature Grans % 0.2; Lymphocytes % 16.5; Mean Corp. HGB Concentration 31.9 g/dL (32.0-36.0); Mean Corpuscular Hemoglobin 29.9 pg (27.0-33.0); Mean Corpuscular Volume 93.7 fL (80-95); Mean Platelet Volume 10.1 fL (8.0-11.0); Monocytes % 6.6; Neutrophils % 71.8; Platelet Count 135 x1000/uL (130-400); RBC 3.18 m/cumm (4.00-5.20); RBC Distribution Width 15.1 % (11.7-14.6); White Blood Cell Count 5.59 k/cumm (4.4-10.8)
[2019-03-28 11:39] LABS: ALT 26 U/L (14-59); AST 24 U/L (15-37); Albumin 2.7 g/dL (3.4-5.0); Alkaline Phosphatase 106 U/L (46-116); Anion Gap 12.3 mmol/L (3-11); BUN 58 mg/dL (7-18); Bilirubin, Total 0.4 mg/dL (0.2-1.0); CO2 24.7 mmol/L (21.0-32.0); Calcium 7.4 mg/dL (8.5-10.1); Chloride 101 mmol/L (98-107); Estimated GFR 3.72 (mL/min/1.73m2); Glucose 97 mg/dL (70-100); NT-proBNP 3954 pg/mL; Potassium 3.2 mmol/L (3.5-5.1); Sodium 138 mmol/L (136-145); Total Protein 5.4 g/dL (6.4-8.2)
[2019-03-28 11:48] LABS: CREATININE 10.57 mg/dL (0.55-1.02)
[2019-03-28 11:53] LABS: Anisocytosis 2+; Diff Comment RBC Morph Reviewed
== END 2019-03-28 10:39 ==
PROVIDERS: PCP Nurse Practitioner Family; Visit Provider Nurse Practitioner Family
DX: R06.01 Orthopnea (principal); R05 Cough
CPT/HCPCS: 36415; 80053; 83880; 85025

== ENCOUNTER 2019-04-01 00:45 | Outpatient (CLI) | payer MEDICARE, MEDICAID, SELFPAY ==
--- NOTE | 2019-04-01 08:26 | DI.CT_ITS ---
EXAM: CT CHEST WO CLINICAL HISTORY: COUGH, ORTHOPNEA, R05, R06.01. TECHNIQUE: Imaging protocol: Axial computed tomography images were obtained and coronal and sagittal reformatted images were created and reviewed. CONTRAST MATERIAL: Intravenous: Omnipaque 350 Contrast volume:0 mL contrast route:IV - Oral: No COMPARISON: No exams were available for comparison FINDINGS: Tracheobronchial tree: Patent where visualized. Mediastinum and Radha: No dominant adenopathy or fluid collection. There is a moderate-sized hiatal he rnia. Pulmonary parenchyma: No consolidation or dominant measurable mass. Pleura: No effusion or pneumothorax. Heart/Aorta: There is atherosclerosis in the thoracic aorta. The heart is mildly dilated. No signif icant pericardial effusion is present. Coronary artery calcifications are present. Upper abdomen: There is a large amount of abdominal ascites. There is cholelithiasis. No biliary d uctal dilatation is present. The kidneys are markedly atrophic. There is a simple cyst on the left kidney. Lymph nodes: Within normal limits. Thyroid gland: The thyroid gland appears enlarged. There is an ill-defined hypodense partially calci fied mass in the right lobe. Nonemergent thyroid ultrasound should be considered for further evaluat ion. Bones: Degenerative changes are present in the spine. IMPRESSION: 1. No acute pulmonary process. 2. Large abdominal ascites. 3. Bilateral renal atrophy 4. Cholelithiasis. 5. Enlarged thyroid gland with right thyroid nodule. Nonemergent thyroid ultrasound is recommended f or further evaluation. DATA REPOSITORY: All CT scans at this facility are submitted to the National Radiology Data Registry (NRDR) Dose Index Registry (DIR) with the [employer] ([employer]). RADIATION OPTIMIZATION: All CT scans at this facility use at least one of these dose optimization te chniques: automated exposure control; mA and/or kV adjustment per patient size (includes targeted exa ms where dose is matched to clinical indication); or iterative reconstruction.
== END 2019-04-01 01:05 ==
PROVIDERS: PCP Nurse Practitioner Family; Visit Provider Nurse Practitioner Family
DX: R05 Cough (principal); R06.01 Orthopnea; I51.7 Cardiomegaly; K80.20 Calculus of gallbladder without cholecystitis without obstruction; K44.9 Diaphragmatic hernia without obstruction or gangrene; R18.8 Other ascites; E04.8 Other specified nontoxic goiter
CPT/HCPCS: 71250

== ENCOUNTER 2019-04-15 01:30 | Outpatient (CLI) | payer MEDICARE, MEDICAID, SELFPAY ==
--- NOTE | 2019-04-15 07:12 | DI.US_ITS ---
APPROVED REPORT EXAM: Comprehensive 2D, Doppler, and color-flow Echocardiogram Patient Location: Out-Patient [employer] Clerk: JANNETTE Villarreal (AE) Rhythm: NSR Indications: chest pain, chronic cough, orthopena r07.9, r05, r06.01 Left Ventricle The left ventricle is normal. Left ventricular systolic function is normal. The posterior wall thickn ess is severely increased. The septal thickness is moderately increased. There is normal LV segmental wall motion. There is decreased mitral annular tissue velocity suggesting impaired relaxation LVEF i s 50-54%. Right Ventricle The right ventricle is normal size. The right ventricular systolic function is normal. Atria The left atrium size is normal. The right atrium size is normal. Aortic Valve The aortic valve is normal in structure. Aortic valve is calcified. There is no aortic valvular steno sis. Moderate aortic regurgitation by pressure half-time measurement. Mitral Valve The mitral valve is normal in structure. No evidence of mitral valve stenosis. There is no mitral pat ve regurgitation noted. Tricuspid Valve The tricuspid valve is normal in structure. Mild tricuspid regurgitation. Pulmonic Valve Pulmonic valve is not well visualized. Trace pulmonic regurgitation. Great Vessels The aortic root is normal in size. The ascending aorta size is mildy dilated (3.4cm). IVC is normal i n size and collapses >50% with inspiration. Pericardium trivial pericardial effusion anterior cannot exclude pleural effusion small 2D Dimensions IVSd 1.38 cm F: 0.6-1.0 LV EDV A2C 52.40 mL PWd 1.22 cm F: 0.6 - 1.0 LV EDV A4C 64.70 mL LVDd 4.59 cm F: 3.9 - 5.3 LA Volume Index A2C 33.21 mL/m2 LVDs 3.02 cm F: 2.2 - 3.5 LA Volume Index A4C 32.49 mL/m2 Aortic Root 3.42 cm F: 2.7 - 3.3 LA Volume Index Biplane 35.40 mL/m2 RA Area A4C 14.07 cm2 LA Area A4C 15.82 cm2 LVOT 1.80 cm (M/F) 1.5-2.5 LA Area A2C 17.23 cm2 Ascending Aorta 3.52 cm F: 2.3 - 3.1 EF AP4 53.32 % LVEF (Teich) 63.35 % EF AP2 54.77 % LVEF ([facility]) 54.85 % F: 54 - 74 EF BP 54.85 % LV Volume 50.30 mL F: 46 - 106 LV Volume Index 36.18 mL/m2 F: 29 - 61 FS 34.27 % LV Diastology E/A Ratio 0.6 MED E' 0.04 (<0.07 m/s) LV E/e MED 19.04 (>14) LAT E' 0.06 (<0.1 m/s) LV E/e LAT 11.95 (>14) Aortic Valve LVOT Area 2.55 cm2 LVOT Peak Sergio. 1.33 m/s LVOT Mean Sergio. 0.86 m/s LUIZA Vmax 0.00 m/s LVOT Peak Gr. 7.03 mmHg LUIZA Vmax Index 1.44 cm2/m2 LVOT Mean Gr. 3.56 mmHg LUIZA Mean Sergio. 0.00 m/s LVOT VTI 0.32 m LUIZA Mean Sergio. Index 1.38 cm2/m2 AoV Peak Sergio. 1.68 (0.5-1.3 m/s) AoV Mean Sergio. 1.15 m/s AI PHT 363.93 msec AO Peak GR. 11.27 mmHg AO Mean GR. 5.90 (<5 mmHg) AO VTI 0.40 (0.18-0.25 m) AV Regurg Decel. 1254.93 msec LUIZA (VTI) 2.00 (2.5-4.5 cm2) LUIZA (VTI) Index 1.44 cm/m2 Mitral Valve MV E Max Sergio. 0.71 (0.4-1.3 m/s) MVA VTI 4.09 (4.0-6.0 cm2) MV A Velocity 1.12 (0.4-1.3 m/s) E/A Ratio 0.63 MV Regurg Volume 44.63 mL MV PHT 87.83 msec MV RF 35.64 % MVA PHT 2.50 cm2 Tricuspid Valve TR P. Velocity 2.75 m/s TV Regurg Vmax 2.75 m/s TR P. Gradient 30.25 mmHg Conclusion Left Ventricle : The left ventricle is normal. The posterior wall thickness is severely increased. Th e septal thickness is moderately increased. There is normal LV segmental wall motion. LVEF is 50-54%. There is decreased mitral annular tissue velocity suggesting impaired relaxation. Right Ventricle : The right ventricle is normal size. The right ventricular systolic function is norm al. Atria : The left atrium size is normal. The right atrium size is normal. Aortic Valve : The aortic valve is normal in structure. Aortic valve is calcified. There is no aortic valvular stenosis. Moderate aortic regurgitation by pressure half-time measurement. Mitral Valve : The mitral valve is normal in structure. There is no mitral valve regurgitation noted. No evidence of mitral valve stenosis. Tricuspid Valve : The tricuspid valve is normal in structure. Mild tricuspid regurgitation. Pulmonic Valve : Pulmonic valve is not well visualized. Great Vessels : The aortic root is normal in size. The ascending aorta size is mildy dilated (3.4cm). IVC is normal in size and collapses >50% with inspiration. There is no prior echo available for comparison.
--- NOTE | 2019-04-15 07:12 | DI.US_ITS ---
EXAM: US THYROID CLINICAL HISTORY: Enlarged thyroid gland seen on chest CT,e04.9 TECHNIQUE: Ultrasound performed using standard protocol. COMPARISON: US ECHOCARDIOGRAM from 04/15/2019 FINDINGS: Thyroid ultrasound was performed according to the usual protocol. Thyroid gland is heterogeneous. R ight thyroid lobe measures 49 x 25 x 28 millimeters and left lobe measures 49 x 30 x 32 millimeters. The isthmus is about 4-5 millimeters in thickness. There are multiple bilateral thyroid nodules, the largest on the left about 16 millimeters in diamete r and solid with some internal vascularity. Largest lesion on the right is about 17 millimeters in g reatest diameter and is complex and avascular. IMPRESSION: Findings consistent with multinodular goiter. Follow-up ultrasound recommended in 6 months to re-eval uate dominant solid left thyroid lobe mass. Alternatively, biopsy may be considered.
== END 2019-04-15 01:50 ==
PROVIDERS: PCP Nurse Practitioner Family; Visit Provider Nurse Practitioner Family
DX: R07.9 Chest pain, unspecified (principal); R06.01 Orthopnea; R05 Cough; I35.8 Other nonrheumatic aortic valve disorders; I36.1 Nonrheumatic tricuspid (valve) insufficiency; E04.2 Nontoxic multinodular goiter
CPT/HCPCS: 93306; 76536

== ENCOUNTER 2019-04-24 01:23 | Outpatient (RCR) | payer MEDICARE, MEDICAID, SELFPAY ==
[2019-04-10] MEDS: Normal Saline Flush 10 ML SYR IVP (10:03)
[2019-04-17] MEDS: Normal Saline Flush 10 ML SYR IVP (09:51)
[2019-04-17] MEDS: IRON SUCROSE COMPLEX 300 MG in Normal Saline 250 ML 176.667 MG IVPB (09:51)
[2019-04-24] MEDS: Normal Saline Flush 10 ML SYR IVP (10:27)
[2019-04-24] MEDS: IRON SUCROSE COMPLEX 300 MG in Normal Saline 250 ML 176.667 MG IVPB (10:27)
== END 2019-05-01 23:59 | disposition home or self-care (01) ==
LOC: INF 01:23
PROVIDERS: PCP Nurse Practitioner Family; Visit Provider Internal Medicine
DX: D50.9 Iron deficiency anemia, unspecified (principal); N18.5 Chronic kidney disease, stage 5; D63.1 Anemia in chronic kidney disease; Z99.2 Dependence on renal dialysis
CPT/HCPCS: 96365; 96366; J1756

== ENCOUNTER 2019-06-02 16:16 | Outpatient (REF) | payer MEDICARE, SELFPAY ==
--- NOTE | 2019-06-02 14:40 | VUL_PTH ---
PATIENT: Rocky Jerome LOC: [facility] U#:[id number] AGE/SX: 59/F ROOM: RE06/02/[address]: Luis Lopez MD : [id number] BED: DIS: 06/02/2019 SPEC #: [id number] RECD: 06/02/19 18:02 STATUS: ANGELICA SAUCEDO #: [id number] NETTA: 06/02/19 14:[address]: Luis Lopez DEPT: Surgical Specimen RECD BY: Kat Duarte ENTERED: 06/02/19 18:03 SP TYPE: VUL OTHR DR: JANUARY Hawkins Tissues: 1 - VULVA BIOPSY Procedures: GROSS AND MICRO LEVEL 4 SPECIAL STAIN 1 Comments: [id number]
== END 2019-06-02 16:36 ==
LOC: LBN 16:16
PROVIDERS: PCP Nurse Practitioner Family; Visit Provider Obstetrics & Gynecology
DX: N90.89 Other specified noninflammatory disorders of vulva and perineum (principal); N76.4 Abscess of vulva
CPT/HCPCS: 88305; 88312

== ENCOUNTER 2021-01-10 01:34 | Outpatient (CLI) | payer MEDICARE, BC, SELFPAY ==
--- NOTE | 2021-01-10 10:22 | DI.RAD_ITS ---
Exam(s) XR CHEST 2V PA LATERAL EXAM: XR CHEST 2V PA LATERAL CLINICAL HISTORY: chronic cough x 2mo,R05. TECHNIQUE: 2D digital imaging was performed. COMPARISON: CR XR CHEST 2V PA LATERAL from 02/18/2019 FINDINGS: Heart size is normal. The mediastinum is not widened. Lungs are clear. No infiltrates nor pleural effusions. IMPRESSION: No acute pulmonary findings. DATA REPOSITORY: RADIATION DOSE DELIVERED:
== END 2021-01-10 01:54 ==
PROVIDERS: PCP Nurse Practitioner Family; Visit Provider Nurse Practitioner Family
DX: R05 Cough (principal)
CPT/HCPCS: 71046

== ENCOUNTER 2021-02-14 03:40 | Outpatient (CLI) | payer MEDICARE, BC, SELFPAY ==
[2021-02-14] MEDS: Albuterol HFA 18 GM 200 PUFF INH IH (11:06)
[2021-02-14] MEDS: Inhaler, Assist Device 1 EACH MC (11:07)
--- NOTE | 2021-02-14 12:46 | W.PFT ---
Date of service: 02/14/21 Time of Service: 10:02 Pulmonary Function Test Result Requesting Provider Annabel Macdonald Interpretation Spirometry: There is no airflow limitation. There is no significant bronchodilator effect. Lung Volumes: Lung volumes are normal. Diffusion Capacity: The diffusion is normal. Airway Pressure: Airways resistance is normal. Impression Normal pulmonary function tests. Clinical Correlation therefore is recommended.
== END 2021-02-14 03:41 | disposition home or self-care (01) ==
LOC: RT 03:40
PROVIDERS: PCP Nurse Practitioner Family; Visit Provider Nurse Practitioner Family
DX: R05 Cough (principal)
CPT/HCPCS: 94060; 94726; 94729

== ENCOUNTER 2021-05-05 12:34 | Outpatient (CLI) | payer MEDICARE, BC, SELFPAY ==
--- NOTE | 2021-05-05 13:15 | RT.EKG_ITS ---
APPROVED REPORT Exam: Resting ECG Reason for Exam: pre- kidney transplant Patient Location: O HR:80 bpm ECG Measurements Heart Rate 80 AXIS NJ 162 P 52 QRSd 83 QRS -22 QT 390 T 25 QTc 451 Conclusion Sinus rhythm...normal P axis, V-rate 60- 99 Probable left atrial enlargement...P >50mS, <-0.10mV V1 Probable anteroseptal infarct, recent...Q, ST>0.15mV, T neg, V1-V2
== END 2021-05-05 12:35 | disposition home or self-care (01) ==
LOC: RT 12:35
PROVIDERS: PCP Nurse Practitioner Family; Visit Provider Transplant Surgery
DX: Z01.810 Encounter for preprocedural cardiovascular examination (principal); N18.9 Chronic kidney disease, unspecified
CPT/HCPCS: 36415; 80061; 83721; 96365; 96366; 93005; 93010; J1756

== ENCOUNTER 2021-05-19 01:44 | Outpatient (RCR) | payer MEDICARE, BC, SELFPAY ==
[2021-05-05] MEDS: IRON SUCROSE COMPLEX 300 MG in Normal Saline 250 ML 176.667 MG IVPB (10:18)
[2021-05-05] MEDS: Normal Saline Flush 10 ML SYR IVP (10:19)
[2021-05-05 10:45] LABS: Cholesterol 88 mg/dL (<200); HDL Cholesterol 60 mg/dL (40-60)
[2021-05-05 10:51] LABS: Triglyceride < 25 mg/dL (<150)
[2021-05-05 11:21] LABS: LDL CHOLESTEROL 52 mg/dL (<100)
[2021-05-12] MEDS: Normal Saline Flush 10 ML SYR IVP (10:11)
[2021-05-12] MEDS: IRON SUCROSE COMPLEX 300 MG in Normal Saline 250 ML 176.667 MG IVPB (10:23)
[2021-05-19] MEDS: IRON SUCROSE COMPLEX 300 MG in Normal Saline 250 ML 176.667 MG IVPB (10:15)
[2021-05-19] MEDS: Normal Saline Flush 10 ML SYR IVP (10:15)
== END 2021-05-31 23:59 | disposition home or self-care (01) ==
LOC: INF 01:44
PROVIDERS: PCP Nurse Practitioner Family; Visit Provider Internal Medicine
DX: I12.0 Hypertensive chronic kidney disease with stage 5 chronic kidney disease or end stage renal disease (principal); Z00.00 Encounter for general adult medical examination without abnormal findings; N18.6 End stage renal disease; D63.1 Anemia in chronic kidney disease
CPT/HCPCS: 36415; 80061; 83721; 96365; 96366; J1756

== ENCOUNTER 2021-06-06 09:40 | Emergency (ER) | payer MEDICARE, BC, SELFPAY ==
[2021-06-06 09:48] VITALS: BP 109/63; PULSE 77; RESP 18; TEMP 36.5; O2SAT 100
--- NOTE | 2021-06-06 10:00 | RT.EKG_ITS ---
APPROVED REPORT Exam: Resting ECG Reason for Exam: vomiting Patient Location: E HR:74 bpm ECG Measurements Heart Rate 74 AXIS DC 147 P 78 QRSd 98 QRS 20 QT 418 T 57 QTc 463 Conclusion Sinus rhythm...normal P axis, V-rate 60- 99 Probable left ventricular hypertrophy...multiple LVH criteria ST elevation, consider inferior injury...ST >0.08mV, II III aVF. Sinus. No STEMI. I have reviewed and interpreted ECG and agree with software generated interpretation.
--- NOTE | 2021-06-06 10:04 | ED.GENADUL_ITS ---
Discharge Plan Disposition Patient Disposition: HOME Condition: Improving Discharge Details Clinical Impression: Constipation, Hernia of anterior abdominal wall, Vomiting Primary Care Provider: Annabel Macdonald ED Provider: Charu Agosto Home Meds and New Rx's Prescriptions: Continued amoxicillin 500 mg capsule 2,000 mg PO ONCE RF: 0 calcitriol 0.25 mcg capsule 0.25 mcg PO DAILY RF: 0 tacrolimus 0.5 mg capsule 0.5 - 1 mg PO BID RF: 0 sevelamer carbonate [Renvela] 800 mg tablet 1,600 mg PO TID RF: 0 ascorbic acid (vitamin C) 500 mg capsule 500 mg PO BID RF: 0 Vitamin B-12 1,000 mcg/mL drops 1,000 mcg PO DAILY RF: 0 amlodipine 10 mg tablet 10 mg PO DAILY RF: 0 omeprazole 20 mg capsule,delayed release(DR/EC) 20 mg PO DAILY Qty: 90 RF: 4 cinacalcet 30 mg tablet 30 mg PO DAILY RF: 0 ondansetron HCl [Zofran] 4 mg tablet 4 mg PO Q6H PRN (Reason: nausea and vomiting) Qty: 30 RF: 0 allopurinol 100 mg Tablet 100 mg PO DAILY RF: 0 aspirin 81 mg Tablet,Delayed Release (Dr/Ec) 81 mg PO DAILY RF: 0 Discharge Instructions Instructions: Constipation (ED), Ventral Hernia (ED) Additional Instructions: Drink plenty of fluids. You can try foods and beverages that may help stimulate your bowels such as vegetables, salad, coffee or tea. Continue your MiraLAX twice daily to help with constipation. Take the Zofran that you have at home as needed and directed for nausea or vomiting. Continue your peritoneal dialysis as you would normally do this evening as you were given oral and IV contrast for the CT scan today and it is important to continue your dialysis as planned. Follow-up with your primary care doctor in 1 week. Return to the emergency department with any worsening or new concerning symptoms such as fever, worsening pain, persistent vomiting or any other concerns. Discharge Data Discharge Date/Time-TO BE ENTERED AT DEPARTURE: 06/06/21 17:04 Discharge Physician: Charu Agosto Medical Decision Making 61-year-old female with a history of hypertension, GERD, esophagitis, end-stage renal disease on peritoneal dialysis with history of renal transplant 2006, hysterectomy and presents for vomiting, constipation and abdominal pain for the past week. She had been on opiates recently due to a recent fistula surgery in her left arm. Last dose of opiates 05/28. Last BM 05/21. Saw PCP and started on Zofran and MiraLAX with some relief. Saw urgent care this morning for symptoms and sent here for further evaluation after noted systolic blood pressure 80s. BP on arrival 109/63. She appears comfortable and nontoxic. No signs of cellulitis around the PD site. Her abdomen is soft but tender in the epigastrium and suprapubic region. Consider small bowel obstruction. Also consider GERD. Will place an IV, bolus IV fluids, IV morphine, IV zofran, IV pepcid, screening labs. Discussed with radiology and radiologist to recommend that patient can receive oral and IV contrast as long as she receives dialysis within the next 48-hours. Labs and imaging reviewed. White blood cell count 4. Sodium 131. BUN 82. Creatinine 13. Troponin negative. CT abdomen and pelvis reviewed and notes: IMPRESSION: 1. In this patient who has a right-sided peritoneal dialysis catheter there are dilated small bowel loops seen throughout the abdomen pelvis as well as f ecalization of the distal most small bowel loops. The colon is collapsed. Probable distal small bowel obstruction. There is an anterior abdominal hernia as described above. This may or may not be contributory to the obstruction. However, there appears to be a small amount of free air within hernia sac and immediately adjacent peritoneal fat. Surgical consultation is recommended. 2. Atrophic and cystic [place] kidneys. Also multi-cystic right iliac fossa transplant kidney. 3. Cholelithiasis. Also dilatation of the CBD. However, there are no radiopaque calculi evident within the lower CBD. Gallbladder appears somewhat distended but not grossly edematous. No pericholecystic fluid. There is mild prominence of intrahepatic ducts. 4. Uterus is surgically absent. CT reviewed with general surgery who will come to potentially reduce hernia which may improve patient's symptoms. If unable to reduce, will likely transfer to facility with dialysis capability. Dose of morphine ordered per request from Dr. Pang for pain control prior to attempt at hernia reduction. Patient reassessed and she stated she had some improvement with the morphine but now her lower abdominal pain is returning. Patient assessed by Dr. Pang at bedside and hernia noted to be reducible. Discussed with Dr. Pang and can proceed with enema for constipation. Patient was given soapsuds enema by nursing at bedside. She had small bowel movement. She was monitored for 90 minutes and no further bowel movements and requested to go home to attempt bowel movement at home. She denies any nausea or significant pain. She was advised to continue her Zofran as needed for nausea and vomiting and MiraLAX twice daily for her constipation. Advised to proceed with her peritoneal dialysis this evening as she received PO and IV contrast today. Advised to follow-up with her PCP for reevaluation and with surgery as needed. Usual and customary return precautions given prior to discharge. Medical Records Medical records reviewed: Yes I reviewed the patient's medical records. Imaging Data Radiologic Study: Radiologist's impression: CT ABDOMEN PELVIS W CLINICAL HISTORY: vomiting, abdominal pain, constipation. TECHNIQUE: Imaging Protocol: Axial computed tomography images with coronal and sagittal reformatted images were created and reviewed CONTRAST MATERIAL: Intravenous: Omnipaque 50cc Oral: Yes COMPARISON: CT CT CHEST WO from 04/01/2019 FINDINGS: VISUALIZED LUNG BASES: No nodules nor pleural effusions evident. ABDOMEN: There is very small amount of ascites. The larger amount of ascites which was evident on the lower most images of the chest CT scan performed April 2019 there is no longer evident. There is a right-sided peritoneal dialysis catheter. Its distal aspect is in the right-side of the pelvis. There is no abscess at this level. ANTERIOR ABDOMINAL WALL: There is a para umbilical hernia which contains fat some fluid and air, difficult to determine if this is free air or within an incarcerated bowel loop at this level. Surgical consultation recommended. LIVER: There are no focal hepatic lesions evident. There is minimal prominence of intrahepatic ducts. GALLBLADDER/BILIARY: Small gallstones are noted. The gallbladder appears distended not grossly edematous. CBD diameter is increased, measuring 10-11 millimeters. There are no obvious radiopaque calculi in the lower CBD PANCREAS: No evidence of pancreatic mass nor dilatation of the pancreatic duct. SPLEEN: Spleen is not enlarged. No obvious intrasplenic lesions. Splenic and portal veins are patent. ADRENALS: There are no significant adrenal masses. KIDNEYS:Both kidneys are atrophic. Contain cysts. The largest cyst is in the anterior cortex of the left kidney and measures 2.1 x 2.2 cm. Largest cyst in the right kidney measures 1 0.0 cm. No solid masses in either kidney. No calculi. No hydronephrosis. ABDOMINAL AORTA: Heavily calcified but not enlarged. The common iliac arteries are also heavily calcified but not aneurysmal. LYMPH NODES:There is no retroperitoneal nor paraaortic adenopathy. GI: There are multiple dilated small bowel loops throughout the abdomen and pelvis, exhibiting average diameter of 3.3 cm. Colon is mostly collapsed. There is fecalization of distal small bowel loops in the right lower quadrant. The appendix is not able to be identified as a separate structure. PELVIS: There is a right pelvic transplant kidney which appears multi cystic and less than optimal. GI: Colon is collapsed.No evidence of sigmoid diverticulitis. LYMPH NODES: There is no intrapelvic nor inguinal adenopathy. REPRODUCTIVE: Uterus is surgically absent. URINARY BLADDER: Small-collapsed not able to evaluated. OSSEOUS: No significant osseous lesions. IMPRESSION: 1. In this patient who has a right-sided peritoneal dialysis catheter there are dilated small bowel loops seen throughout the abdomen pelvis as well as fecalization of the distal most small bowel loops. The colon is collapsed. Probable distal small bowel obstruction. There is an anterior abdominal hernia as described above. This may or may not be contributory to the obstruction. However, there appears to be a small amount of free air within hernia sac and immediately adjacent peritoneal fat. Surgical consultation is recommended. 2. Atrophic and cystic [place] kidneys. Also multi-cystic right iliac fossa transplant kidney. 3. Cholelithiasis. Also dilatation of the CBD. However, there are no radiopaque calculi evident within the lower CBD. Gallbladder appears somewhat distended but not grossly edematous. No pericholecystic fluid. There is mild prominence of intrahepatic ducts. 4. Uterus is surgically absent. Lab Data Lab results reviewed: Yes I reviewed the patient's lab results. Labs: Laboratory Tests Range/Units 06/06/21 06/06/21 06/06/21 10:03 10:10 10:10 WBC (4.4-10.8) 10^3/uL 4.76 RBC (3.93-5.22) 10^6/uL 4.00 Hgb (11.2-15.7) g/dL 11.3 Hct (36.0-46.0) % 35.7 L MCV (80-95) fL 89.3 MCH (27.0-33.0) pg 28.3 MCHC (32.0-36.0) % 31.7 L RDW (11.7-14.6) % 16.5 H Plt Count (130-400) 10^3/uL 237 MPV (8.0-11.0) fL 9.9 Immature Gran % 0.8 Neutrophils % 63.0 Lymphocytes % 15.8 Monocytes % 18.7 Eosinophils % 1.5 Basophils % 0.2 Nucleated RBC % % 0 Absolute Neutrophils (1.2-6.7) 10^3/uL 3.00 Absolute Lymphocytes (1.2-3.4) 10^3/uL 0.75 L Absolute Monocytes (0.1-0.8) 10^3/uL 0.89 H Absolute Eosinophils (0.0-0.7) 10^3/uL 0.07 Absolute Basophils (0.0-0.2) 10^3/uL 0.01 Sodium (136-145) mmol/L 131 L Potassium (3.5-5.1) mmol/L 4.1 Chloride (98-107) mmol/L 90 L Carbon Dioxide (21.0-32.0) mmol/L 25.4 Anion Gap (3-11) mmol/L 15.6 H BUN (7-18) mg/dL 82 H* Creatinine (0.55-1.02) mg/dL 13.4 H* Estimated GFR/1.73 m2 (mL/min/1.73m2) 2.80 Glucose (74-106) mg/dL 107 H Calcium (8.5-10.1) mg/dL 8.4 L Magnesium (1.8-2.4) mg/dL 2.7 H Total Bilirubin (0.2-1.0) mg/dL 0.4 AST (15-37) U/L 17 ALT (14-59) U/L < 6 L Alkaline Phosphatase (46-116) U/L 105 Troponin I (<0.06) ng/mL 0.05 Total Protein (6.4-8.2) g/dL 6.8 Albumin (3.4-5.0) g/dL 2.5 L Urine Color Cancelled Urine Clarity Cancelled Urine pH Cancelled Ur Specific [place] Cancelled Urine Protein Cancelled Urine Ketones Cancelled Urine Blood Cancelled Urine Nitrite Cancelled Urine Bilirubin Cancelled Urine Urobilinogen Cancelled Ur Leukocyte Esterase Cancelled Urine Glucose Cancelled HPI General Mode of arrival: ambulatory . Date/Time Provider Initiated Documentation: 06/06/21 09:57 . Limitations to Documentation: no limitations . Information obtained by: patient . HPI Narrative: Patient is a 61-year-old female with a history of hypertension GERD, end-stage renal disease on per itoneal dialysis with previous history of renal transplant in 2005 presents for vomiting, constipation and abdominal pain for the past week. Patient had recent fistula placed in her left arm and has been on opiate therapy and had been constipated since then. She states her last dose of pain medication was May 28. She states her last bowel movement was May 23. She states for the past week she has been vomiting multiple times daily which has been mainly clear or food. She states her abdominal pain is mainly in the upper abdomen but also in the suprapubic region. Patient last vomited last evening and has not eaten anything yet today. Patient was seen at patient had her normal peritoneal dialysis session last evening. She went to the urgent care today for her symptoms and was noted to be hypotensive with a systolic in the 80s and was sent here for further evaluation. Related Data Home Medications Medication Instructions Recorded Confirmed allopurinol 100 mg PO DAILY 02/18/19 06/06/21 aspirin 81 mg PO DAILY 02/19/19 06/06/21 ascorbic acid (vitamin C) 500 mg 500 mg PO BID cap 04/24/19 06/06/21 capsule cyanocobalamin (vitamin B-12) 1,000 mcg PO DAILY 04/24/19 06/06/21 1,000 mcg/mL oral drops sevelamer carbonate 800 mg tablet 1,600 mg PO TID tab 04/24/19 06/06/21 tacrolimus 0.5 mg capsule, 0.5 - 1 mg PO BID cap 04/24/19 06/06/21 immediate-release amlodipine 10 mg tablet 10 mg PO DAILY 04/29/20 06/06/21 cinacalcet 30 mg tablet 30 mg PO DAILY tab 12/27/20 06/06/21 amoxicillin 500 mg capsule 2,000 mg PO ONCE cap 03/21/21 06/06/21 calcitriol 0.25 mcg capsule 0.25 mcg PO DAILY 03/21/21 06/06/21 omeprazole 20 mg capsule,delayed 20 mg PO DAILY #90 cap 05/02/21 06/06/21 release ondansetron HCl 4 mg tablet 4 mg PO Q6H PRN #30 tab 06/03/21 06/06/21 Previous Rx's Medication Instructions Recorded omeprazole 20 mg capsule,delayed 20 mg PO DAILY #90 cap 05/02/21 release ondansetron HCl 4 mg tablet 4 mg PO Q6H PRN #30 tab 06/03/21 Allergies Allergy/AdvReac Type Severity Reaction Status Date / Time lidocaine Allergy Severe RASH Verified 06/06/21 09:51 lisinopril AdvReac Mild Cough Verified 06/06/21 09:51 milk AdvReac Mild DIARRHEA Verified 06/06/21 09:51 General Stated Complaint: Nausea/Vomit/Diar CJ: 3 Review of Systems All systems reviewed & are unremarkable except as noted in HPI and below Constitutional Constitutional: Reports as per HPI, Denies chills and Denies fever(s) Eyes Eyes: Denies blurry vision ENT Ears, Nose, Mouth, and Throat: Denies dizziness, Denies sore throat and Denies throat swelling Cardiovascular Cardiovascular: Denies chest pain and Denies dyspnea Respiratory Respiratory: Denies cough and Denies dyspnea Gastrointestinal Gastrointestinal: Reports abdominal pain, Reports constipation, Denies diarrhea and Reports vomiting Genitourinary Genitourinary: Denies hematuria and Denies dysuria Musculoskeletal Musculoskeletal: Denies back pain and Denies numbness Integumentary/Breasts Skin/Breast: Denies lesions and Denies rash Neurologic Neurologic: Denies dizziness, Denies localized weakness and Denies numbness Allergic/Immunologic Allergic/Immunologic: Denies throat swelling [facility] Active Problem List (Updated 06/06/21 @ 21:08 by Radha Pang DO) End-stage renal disease (ESRD) (Acute) Peritoneal dialysis catheter in place (Acute 10/30/18) Constipation (Acute) Hernia of anterior abdominal wall (Acute) Vomiting (Acute) Arteriovenous fistula of left upper extremity (Acute) Chronic cough (Acute) Secondary hyperparathyroidism of renal origin (Chronic) Moderate aortic regurgitation (Chronic) Multinodular goiter (Chronic) Rectocele (Chronic) Medical History (Updated 06/06/21 @ 21:08 by Radha Pang DO) Anemia in chronic kidney disease (CKD) Essential hypertension GERD with esophagitis Gout Surgical History (Updated 06/06/21 @ 10:57 by Charu Agosto DO) History of section (1986) S/P arteriovenous (AV) fistula creation (~2002) Left arm S/p cadaver renal transplant (10/04/05) S/P total abdominal hysterectomy (01/16/09) For AUB; ovaries preserved Family History Son No problems noted. Son No problems noted. Social History Smoking/Tobacco Use Status: Never Smoking risk assessment performed?: Yes Alcohol Intake: current Alcohol Intake frequency: holidays/special occasions only Alcohol type: wine Substance use type: does not use Adopted: Yes Household members: other Details: Kp. 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 Robert works in [employer] Female Reproductive History Menstrual Menopause type: surgical History History 2 4 Para 2 Hx # Term Pregnancies Multiple births Hx # Pregnancies Ectopic pregnancies AB induced Hx Number of Living Children 2 AB spontaneous 2 Exam Const General: cooperative, healthy appearing and no acute distress HENMT Head: normal to inspection Face and sinus: normal facial exam Eyes General: appearance normal, both eyes and all related structures EOM: EOM intact bilaterally Neck Neck: normal visual inspection and No submandibular swelling Lymphatic: no lymphadenopathy noted Chest Chest: normal inspection of the chest and no tenderness Resp Effort & Inspection: normal respiratory effort and able to speak in complete sentences Auscultation: clear to auscultation bilaterally Cardio Rate: regular rate Rhythm: regular rhythm GI Inspection: normal to inspection and other (Peritoneal dialysis catheter in place, no signs of cellulitis) Palpation: soft, not firm, not rigid and tender in the epigastrum and suprapubicly Auscultation: hypoactive bowel sounds Skin General skin exam: no rashes or lesions noted Neuro General: patient alert, patient awake and patient oriented x3 Cognition: normal cognition Speech: speech normal Motor: muscle tone normal throughout Sensory Exam: no sensory deficits noted Extrem General: normal to inspection, full ROM, capillary refill normal, no calf tenderness bilaterally and no edema Elbow/forearm/wrist images: 1. Sutures clean, dry intact. Psych Appearance: grossly normal Mental Status: mental status grossly normal Speech and Movement: speech and movement normal Affect: normal affect Course Vital Signs Vital signs: Vital Signs Temperature 97.7 F 06/06/21 09:48 Pulse 77 06/06/21 09:48 Respiratory Rate 18 06/06/21 09:48 Blood Pressure 109/63 06/06/21 09:48 Pulse Oximetry 100 06/06/21 09:48 Temperature 97.7 F 06/06/21 09:48 Temperature Source Skin 06/06/21 09:48 Pulse 77 06/06/21 09:48 Respiratory Rate 18 06/06/21 09:48 Respiratory Effort Non-Labored 06/06/21 09:53 Blood Pressure 109/63 06/06/21 09:48 Blood Pressure Position Sitting 06/06/21 09:48 Pulse Oximetry 100 06/06/21 09:48 Oxygen Delivery Method Room Air 06/06/21 09:48 Oxygen Flow Rate 0 06/06/21 09:48
[2021-06-06 10:20] LABS: Abs Immature Grans 0.04 10^3/uL (0.0-0.06); Absolute Basophil Count 0.01 10^3/uL (0.0-0.2); Absolute Eosinophil Count 0.07 10^3/uL (0.0-0.7); Absolute Lymphocyte Count 0.75 10^3/uL (1.2-3.4); Absolute Monocyte Count 0.89 10^3/uL (0.1-0.8); Basophils % 0.2; Eosinophils % 1.5; HCT 35.7 % (36.0-46.0); HGB 11.3 g/dL (11.2-15.7); Immature Grans % 0.8; Lymphocytes % 15.8; MCH 28.3 pg (27.0-33.0); MCHC 31.7 % (32.0-36.0); MCV 89.3 fL (80-95); MPV 9.9 fL (8.0-11.0); Monocytes % 18.7; Nucleated RBC 0 %; Platelet Count 237 10^3/uL (130-400); RDW 16.5 % (11.7-14.6); RDW-SD 53.7 fL; WBC 4.76 10^3/uL (4.4-10.8)
[2021-06-06 10:36] LABS: AST 17 U/L (15-37); Albumin 2.5 g/dL (3.4-5.0); Alkaline Phosphatase 105 U/L (46-116); Anion Gap 15.6 mmol/L (3-11); Bilirubin, Total 0.4 mg/dL (0.2-1.0); CO2 25.4 mmol/L (21.0-32.0); Calcium 8.4 mg/dL (8.5-10.1); Chloride 90 mmol/L (98-107); Glucose 107 mg/dL (74-106); Magnesium 2.7 mg/dL (1.8-2.4); Potassium 4.1 mmol/L (3.5-5.1); Sodium 131 mmol/L (136-145); Total Protein 6.8 g/dL (6.4-8.2); Troponin I 0.05 ng/mL (<0.06)
[2021-06-06 10:39] LABS: ALT < 6 U/L (14-59); BUN 82 mg/dL (7-18); CREATININE 13.4 mg/dL (0.55-1.02)
--- NOTE | 2021-06-06 10:45 | DI.CT_ITS ---
Exam(s) CT ABDOMEN PELVIS W EXAM: CT ABDOMEN PELVIS W CLINICAL HISTORY: vomiting, abdominal pain, constipation. TECHNIQUE: Imaging Protocol: Axial computed tomography images with coronal and sagittal reformatted images were created and reviewed CONTRAST MATERIAL: Intravenous: Omnipaque 50cc Oral: Yes COMPARISON: CT CT CHEST WO from 04/01/2019 FINDINGS: VISUALIZED LUNG BASES: No nodules nor pleural effusions evident. ABDOMEN: There is very small amount of ascites. The larger amount of ascites which was evident on the lower m ost images of the chest CT scan performed April 2019 there is no longer evident. There is a right-sided peritoneal dialysis catheter. Its distal aspect is in the right-side of the p hannah. There is no abscess at this level. ANTERIOR ABDOMINAL WALL: There is a para umbilical hernia which contains fat some fluid and air, diff icult to determine if this is free air or within an incarcerated bowel loop at this level. Surgical consultation recommended. LIVER: There are no focal hepatic lesions evident. There is minimal prominence of intrahepatic ducts . GALLBLADDER/BILIARY: Small gallstones are noted. The gallbladder appears distended not grossly edema tous. CBD diameter is increased, measuring 10-11 millimeters. There are no obvious radiopaque calcu li in the lower CBD PANCREAS: No evidence of pancreatic mass nor dilatation of the pancreatic duct. SPLEEN: Spleen is not enlarged. No obvious intrasplenic lesions. Splenic and portal veins are paten t. ADRENALS: There are no significant adrenal masses. KIDNEYS:Both kidneys are atrophic. Contain cysts. The largest cyst is in the anterior cortex of the left kidney and measures 2.1 x 2.2 cm. Largest cyst in the right kidney measures 1 0.0 cm. No roberto d masses in either kidney. No calculi. No hydronephrosis. ABDOMINAL AORTA: Heavily calcified but not enlarged. The common iliac arteries are also heavily calc ified but not aneurysmal. LYMPH NODES:There is no retroperitoneal nor paraaortic adenopathy. GI: There are multiple dilated small bowel loops throughout the abdomen and pelvis, exhibiting averag e diameter of 3.3 cm. Colon is mostly collapsed. There is fecalization of distal small bowel loops in the right lower quadrant. The appendix is not able to be identified as a separate structure. PELVIS: There is a right pelvic transplant kidney which appears multi cystic and less than optimal. GI: Colon is collapsed.No evidence of sigmoid diverticulitis. LYMPH NODES: There is no intrapelvic nor inguinal adenopathy. REPRODUCTIVE: Uterus is surgically absent. URINARY BLADDER: Small-collapsed not able to evaluated. OSSEOUS: No significant osseous lesions. IMPRESSION: 1. In this patient who has a right-sided peritoneal dialysis catheter there are dilated small bowel l oops seen throughout the abdomen pelvis as well as fecalization of the distal most small bowel loops. The colon is collapsed. Probable distal small bowel obstruction. There is an anterior abdominal h ernia as described above. This may or may not be contributory to the obstruction. However, there ap pears to be a small amount of free air within hernia sac and immediately adjacent peritoneal fat. Akers rgical consultation is recommended. 2. Atrophic and cystic [place] kidneys. Also multi-cystic right iliac fossa transplant kidney. 3. Cholelithiasis. Also dilatation of the CBD. However, there are no radiopaque calculi evident wit hin the lower CBD. Gallbladder appears somewhat distended but not grossly edematous. No pericholecy stic fluid. There is mild prominence of intrahepatic ducts. 4. Uterus is surgically absent. Report discussed with ER physician. RADIATION DOSE DELIVERED: 512.92mGy.cm Total DLP DATA REPOSITORY: All CT scans at this facility are submitted to the National Radiology Data Registry (NRDR) Dose Index Registry (DIR) with the [employer] ([employer]). RADIATION OPTIMIZATION: All CT scans at this facility use at least one of these dose optimization te chniques: automated exposure control; mA and/or kV adjustment per patient size (includes targeted exa ms where dose is matched to clinical indication); or iterative reconstruction.
[2021-06-06] MEDS: Normal Saline 250 ML IV (11:00)
[2021-06-06] MEDS: Ondansetron 4 MG/2 ML VIAL IVP (11:00)
[2021-06-06] MEDS: Normal Saline Flush 10 ML SYR IVP ×2 (11:01→13:49)
[2021-06-06] MEDS: Omnipaque 350 MG/ML 50 ML BTL IV (12:36)
--- NOTE | 2021-06-06 15:49 | SCONE_ITS ---
Date of service: 06/06/21 Time of Service: 15:49 Assessment and Plan Assessment and plan (1) Constipation: Status: Acute Assessment and plan: Acute constipation secondary to narcotic use for recent surgery-fecal impaction. She has fecal material noted in the small bowel. She does have an umbilical hernia but this is soft and easily reducible. -She is currently on peritoneal dialysis. She has a failed kidney transplant. She had a recent AV fistula created for ongoing hemodialysis. She has no signs of peritonitis from her diassolate. Her catheter site is clean dry and intact. I did personally review her CT scan. We will try MiraLAX and enemas. She did receive oral contrast. This will be diagnostic as well as therapeutic. Continue scheduled dialysis. (2) Hernia of anterior abdominal wall: Status: Acute (3) Arteriovenous fistula of left upper extremity: Status: Acute (4) Vomiting: Status: Acute (5) Peritoneal dialysis catheter in place: Status: Acute (6) End-stage renal disease (ESRD): Status: Acute History of Present Illness Narrative: Patient came to the emergency room today complaining of nausea vomiting and abdominal pain. She has had no fever or chills. She is on peritoneal dialysis for end-stage renal disease. She recently had an AV fistula created in her left arm. She does have a good thrill and bruit today. She has been on narcotics for pain control. She is not had a bowel movement since 05/23. She had a CT with oral contrast which I did review. Just mostly shows constipation. The insertion site of the peritoneal dialysis catheter is clean dry and intact. She does not have a significant amount of fluid/diastole in her abdomen. She does have a small umbilical hernia. This is soft and reducible. It was visualized on CT. It is not incarcerated. She does have diffuse abdominal tenderness but it does not have peritoneal signs. She does have good bowel sounds. Consults Consult date: 06/06/21 Review of Systems All systems reviewed & are unremarkable except as noted in HPI and below [facility] Active Problem List (Updated 06/07/21 @ 22:31 by ASHANTI Hu) SBO (small bowel obstruction) (Acute) Pneumatosis intestinalis (Acute) Hyponatremia (Acute) End-stage renal disease (ESRD) (Acute) Peritoneal dialysis catheter in place (Acute 10/30/18) Constipation (Acute) Hernia of anterior abdominal wall (Acute) Vomiting (Acute) Arteriovenous fistula of left upper extremity (Acute) Chronic cough (Acute) Secondary hyperparathyroidism of renal origin (Chronic) Moderate aortic regurgitation (Chronic) Multinodular goiter (Chronic) Rectocele (Chronic) Medical History (Updated 06/07/21 @ 22:31 by ASHANTI Hu) Anemia in chronic kidney disease (CKD) Essential hypertension GERD with esophagitis Gout Surgical History (Updated 06/06/21 @ 10:57 by Charu Agosto DO) History of section (1986) S/P arteriovenous (AV) fistula creation (~2002) Left arm S/p cadaver renal transplant (10/04/05) S/P total abdominal hysterectomy (01/16/09) For AUB; ovaries preserved Family History Son No problems noted. Son No problems noted. Social History Smoking/Tobacco Use Status: Never Smoking risk assessment performed?: Yes Alcohol Intake: current Alcohol Intake frequency: holidays/special occasions only Alcohol type: wine Substance use type: does not use Adopted: Yes Household members: other Details: Kp. 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 Robert works in [employer] Female Reproductive History Menstrual Menopause type: surgical History History 4 Para 2 Hx # Term Pregnancies Multiple births Hx # Pregnancies Ectopic pregnancies AB induced Hx Number of Living Children 2 AB spontaneous 2 Results Last Vital Signs Temp 36.5 C 06/06/21 09:48 Pulse 77 06/06/21 09:48 Resp 18 06/06/21 09:48 BP 109/63 06/06/21 09:48 Pulse Ox 100 06/06/21 09:48 Labs Result diagrams: 06/06/21 10:10 06/06/21 10:10 Labs: Laboratory Results - last 24 hr 06/06/21 06/06/21 10:10 10:10 WBC 4.76 RBC 4.00 Hgb 11.3 Hct 35.7 L MCV 89.3 MCH 28.3 MCHC 31.7 L RDW 16.5 H Plt Count 237 MPV 9.9 Immature Gran % 0.8 Neutrophils % 63.0 Lymphocytes % 15.8 Monocytes % 18.7 Eosinophils % 1.5 Basophils % 0.2 Nucleated RBC % 0 Absolute Neutrophils 3.00 Absolute Lymphocytes 0.75 L Absolute Monocytes 0.89 H Absolute Eosinophils 0.07 Absolute Basophils 0.01 Sodium 131 L Potassium 4.1 Chloride 90 L Carbon Dioxide 25.4 Anion Gap 15.6 H BUN 82 H* Creatinine 13.4 H* Estimated GFR/1.73 m2 2.80 Glucose 107 H Calcium 8.4 L Magnesium 2.7 H Total Bilirubin 0.4 AST 17 ALT < 6 L Alkaline Phosphatase 105 Troponin I 0.05 Total Protein 6.8 Albumin 2.5 L
[2021-06-06 16:42] VITALS: BP 117/59; PULSE 74; RESP 14; TEMP 36.4; O2SAT 100
== END 2021-06-06 17:04 | disposition home or self-care (01) ==
PROVIDERS: Emergency Provider Physician Assistant; PCP Nurse Practitioner Family
DX: K59.00 Constipation, unspecified (principal); K42.9 Umbilical hernia without obstruction or gangrene; R11.10 Vomiting, unspecified; R10.13 Epigastric pain; Z99.2 Dependence on renal dialysis; N18.6 End stage renal disease; T86.11 Kidney transplant rejection
CPT/HCPCS: 36415; 80053; 93005; 96361; 96374; 96375; 96376; 99283; 99285; 74177; 81003; 83735; 84484; 85025; 87070; 87205; 93010; J2405; Q9967

== ENCOUNTER 2021-06-07 15:43 | Emergency (ER) | payer MEDICARE, BC, SELFPAY ==
[2021-06-07] VITALS (22 sets, daily range): BP systolic 113–124; BP diastolic 63–74; PULSE 72–87; RESP 13–27; TEMP 36.1–36.7; O2SAT 97–100
[2021-06-07 16:41] LABS: Abs Immature Grans 0.05 10^3/uL (0.0-0.06); Absolute Basophil Count 0.02 10^3/uL (0.0-0.2); Absolute Eosinophil Count 0.07 10^3/uL (0.0-0.7); Absolute Monocyte Count 0.87 10^3/uL (0.1-0.8); Absolute Neutrophil Count 4.68 10^3/uL (1.2-6.7); Basophils % 0.3; HCT 37.5 % (36.0-46.0); HGB 11.9 g/dL (11.2-15.7); Immature Grans % 0.7; Lymphocytes % 18.6; MCH 28.1 pg (27.0-33.0); MCHC 31.7 % (32.0-36.0); MCV 88.4 fL (80-95); MPV 10.2 fL (8.0-11.0); Monocytes % 12.4; Nucleated RBC 0 %; Platelet Count 286 10^3/uL (130-400); RBC 4.24 10^6/uL (3.93-5.22); RDW 16.3 % (11.7-14.6); RDW-SD 52.6 fL; WBC 6.99 10^3/uL (4.4-10.8)
--- NOTE | 2021-06-07 16:45 | DI.CT_ITS ---
Exam(s) CT ABDOMEN PELVIS W EXAM: CT ABDOMEN PELVIS W CLINICAL HISTORY: vomiting, possible bowel obstruction, ct yesterday TECHNIQUE: Imaging Protocol: Axial computed tomography images with coronal and sagittal reformatted images were created and reviewed CONTRAST MATERIAL: Intravenous: Omnipaque 350 Contrast volume:70 mL Oral: No COMPARISON: CT CT ABDOMEN PELVIS W from 06/06/2021 FINDINGS: ABDOMEN: Lung Bases: Coronary artery calcification. Lung bases are clear. Liver: Normal density. No measurable mass. There is a tiny hypodensity in the liver. It is too small for further characterization, but likely reflects a small cyst. Portal, Superior Mesenteric, and Splenic Veins: Unremarkable. Gallbladder and Biliary Tract: Cholelithiasis. The common duct measures 1.3 cm. There is a 2 mm den sity near the ampulla suspicious for choledocholithiasis. (Series 5, image 357). Pancreas: Normal density. There are calcifications seen particularly in the tail of the pancreas whi ch may reflect prior pancreatitis. Spleen: Normal. Adrenals: No masses seen. Kidneys: Atrophic multi-cystic [place] kidneys. There is a multi-cystic renal transplant in the right pelvis. Calcifications are seen in the renal transplant which may represent nonobstructing stones. There is no hydronephrosis. No masses seen. Abdominal Aorta: Abdominal portion non-dilated. Extensive atherosclerosis. Bowel: The colon is of normal caliber. There is dilatation of the entire small bowel. There is thic kening of the wall of the terminal ilium with fecalization of its contents. There is mild pneumatosi s seen in the terminal ileum. There do appear to be a few foci of extraluminal gas in the right lowe r quadrant adjacent to the terminal ileum. There is no evidence of appendicitis. Small hiatal herni a. Peritoneal Cavity: There is a small amount of free fluid in the pelvis. The patient does have a ines toneal dialysis catheter. No free air. Lymph Nodes: Within normal limits. Bones: Within normal limits for the patient's age. Soft Tissues: There are few fat containing midline anterior abdominal wall hernia present. PELVIS: Bladder: Not completely distended. This limits evaluation. Reproductive Organs: Status post hysterectomy. Lymph Nodes: Within normal limits. Bones: Within normal limits for the patient's age. IMPRESSION: 1. Findings of a small-bowel obstruction. The transition appears to lie at the ileocecal valve. 2. Moderate wall thickening seen in the terminal ileum and distal small bowel with fecalization of th e small bowel contents in this region. There is a small focus of extraluminal air in this region. A n infectious enteritis is suspected. Inflammatory bowel disease or typhlitis may also be considered as should neoplasm such as lymphoma. 3. Cholelithiasis. Question of a 2 mm calcification near the ampulla which may be causing obstructio n. May be considered for further evaluation. RADIATION DOSE DELIVERED: 574.29mGy.cm Total DLP DATA REPOSITORY: All CT scans at this facility are submitted to the National Radiology Data Registry (NRDR) Dose Index Registry (DIR) with the [employer] (ACR). RADIATION OPTIMIZATION: All CT scans at this facility use at least one of these dose optimization te chniques: automated exposure control; mA and/or kV adjustment per patient size (includes targeted exa ms where dose is matched to clinical indication); or iterative reconstruction.
--- NOTE | 2021-06-07 16:45 | RT.EKG_ITS ---
APPROVED REPORT Exam: Resting ECG Reason for Exam: weakness Patient Location: E HR:73 bpm ECG Measurements Heart Rate 73 AXIS MO 160 P 70 QRSd 89 QRS -7 QT 410 T 60 QTc 453 Conclusion Sinus rhythm. Atrial premature complex...SV complex w/ short R-R interval Nonspecific st changes
[2021-06-07 16:55] LABS: AST 18 U/L (15-37); Albumin 2.7 g/dL (3.4-5.0); Alkaline Phosphatase 116 U/L (46-116); Anion Gap 16.7 mmol/L (3-11); BUN 76 mg/dL (7-18); Bilirubin, Total 0.5 mg/dL (0.2-1.0); CO2 23.3 mmol/L (21.0-32.0); Calcium 8.4 mg/dL (8.5-10.1); Chloride 83 mmol/L (98-107); Estimated GFR 3.04 (mL/min/1.73m2); Glucose 118 mg/dL (74-106); Magnesium 2.4 mg/dL (1.8-2.4); Potassium 4.5 mmol/L (3.5-5.1); Total Protein 7.1 g/dL (6.4-8.2)
[2021-06-07 17:08] LABS: ALT < 6 U/L (14-59)
[2021-06-07 17:09] LABS: CREATININE 12.5 mg/dL (0.55-1.02); Sodium 123 mmol/L (136-145)
[2021-06-07 17:24] LABS: Lipase 21 U/L (73-393)
[2021-06-07 17:32] LABS: Troponin I 0.06 ng/mL (<0.06)
--- NOTE | 2021-06-07 18:41 | ED.GENADUL_ITS ---
Discharge Plan Disposition Patient Disposition: [facility] Condition: Serious Discharge Details Clinical Impression: SBO (small bowel obstruction), Pneumatosis intestinalis, Hyponatremia Primary Care Provider: Annabel Macdonald ED Provider: Kat Henson Home Meds and New Rx's Prescriptions: Continued amoxicillin 500 mg capsule 2,000 mg PO ONCE RF: 0 calcitriol 0.25 mcg capsule 0.25 mcg PO DAILY RF: 0 tacrolimus 0.5 mg capsule 0.5 - 1 mg PO BID RF: 0 sevelamer carbonate [Renvela] 800 mg tablet 1,600 mg PO TID RF: 0 ascorbic acid (vitamin C) 500 mg capsule 500 mg PO BID RF: 0 Vitamin B-12 1,000 mcg/mL drops 1,000 mcg PO DAILY RF: 0 amlodipine 10 mg tablet 10 mg PO DAILY RF: 0 omeprazole 20 mg capsule,delayed release(DR/EC) 20 mg PO DAILY Qty: 90 RF: 4 cinacalcet 30 mg tablet 30 mg PO DAILY RF: 0 ondansetron HCl [Zofran] 4 mg tablet 4 mg PO Q6H PRN (Reason: nausea and vomiting) Qty: 30 RF: 0 allopurinol 100 mg Tablet 100 mg PO DAILY RF: 0 aspirin 81 mg Tablet,Delayed Release (Dr/Ec) 81 mg PO DAILY RF: 0 Medical Decision Making Patient has a bowel action consistent with her CT scan performed yesterday, transition point is at the ileocecal valve She also has moderate wall thickening of the terminal ileum with pneumatosis and focus of extraluminal air location Concern for typhlitis for vRad interpretation although her exam is fairly consistent with bowel obstruction She had one episode of vomiting and felt symptomatically improved still with some mild pain, no persistent nausea at this time Case discussed with hospitalist at [facility] patient will require peritoneal dialysis which unfortunately her facility is unable to perform Dr Benitez has accepted patient at [facility], she is stable for transport at this time but will need NG tube [place] [facility] [place] surgical consultation Patient stable for transfer at this time, will pend NG tube pending transport Received 1 L of normal saline Found to be hyponatremic, 123 Creatinine of 12.5, consistent with prior Hypochloremic, 83 Received 2.25 of Zosyn, renal adjusted for dialysis, per concerning pneumatosis on CT scan Does not meet criteria Wishes to be DNR/DNI status Medical Records Medical records reviewed: Yes I reviewed the patient's medical records. Lab Data Lab results reviewed: Yes I reviewed the patient's lab results. HPI General Mode of arrival: ambulatory . Date/Time Provider Initiated Documentation: 06/07/21 16:00 . Limitations to Documentation: no limitations . Information obtained by: patient . HPI Narrative: 61-year-old female with history of end-stage renal disease, peritoneal dialysis presents with worsening abdominal pain. She states that she is been nauseous with 1 episode of vomiting. She does not move her bowels well for the past week. She was evaluated yesterday in the emergency room and had enema and surgical consultation and was discharged home. She presents today as her symptoms are worsening. She is status post surgery for removal of a left AV fistula Related Data Home Medications Medication Instructions Recorded Confirmed allopurinol 100 mg PO DAILY 02/18/19 06/07/21 aspirin 81 mg PO DAILY 02/19/19 06/07/21 ascorbic acid (vitamin C) 500 mg 500 mg PO BID cap 04/24/19 06/07/21 capsule cyanocobalamin (vitamin B-12) 1,000 mcg PO DAILY 04/24/19 06/07/21 1,000 mcg/mL oral drops sevelamer carbonate 800 mg tablet 1,600 mg PO TID tab 04/24/19 06/07/21 tacrolimus 0.5 mg capsule, 0.5 - 1 mg PO BID cap 04/24/19 06/07/21 immediate-release amlodipine 10 mg tablet 10 mg PO DAILY 04/29/20 06/07/21 cinacalcet 30 mg tablet 30 mg PO DAILY tab 12/27/20 06/07/21 amoxicillin 500 mg capsule 2,000 mg PO ONCE cap 03/21/21 06/07/21 calcitriol 0.25 mcg capsule 0.25 mcg PO DAILY 03/21/21 06/07/21 omeprazole 20 mg capsule,delayed 20 mg PO DAILY #90 cap 05/02/21 06/07/21 release ondansetron HCl 4 mg tablet 4 mg PO Q6H PRN #30 tab 06/03/21 06/07/21 Previous Rx's Medication Instructions Recorded omeprazole 20 mg capsule,delayed 20 mg PO DAILY #90 cap 05/02/21 release ondansetron HCl 4 mg tablet 4 mg PO Q6H PRN #30 tab 06/03/21 Allergies Allergy/AdvReac Type Severity Reaction Status Date / Time lidocaine Allergy Severe RASH Verified 06/07/21 15:49 lisinopril AdvReac Mild Cough Verified 06/07/21 15:49 milk AdvReac Mild DIARRHEA Verified 06/07/21 15:49 General Stated Complaint: Abd Prob CJ: 3 Review of Systems All systems reviewed & are unremarkable except as noted in HPI and below [facility] Active Problem List (Updated 06/07/21 @ 22:31 by ASHANTI Hu) SBO (small bowel obstruction) (Acute) Pneumatosis intestinalis (Acute) Hyponatremia (Acute) End-stage renal disease (ESRD) (Acute) Peritoneal dialysis catheter in place (Acute 10/30/18) Constipation (Acute) Hernia of anterior abdominal wall (Acute) Vomiting (Acute) Arteriovenous fistula of left upper extremity (Acute) Chronic cough (Acute) Secondary hyperparathyroidism of renal origin (Chronic) Moderate aortic regurgitation (Chronic) Multinodular goiter (Chronic) Rectocele (Chronic) Medical History (Updated 06/07/21 @ 22:31 by ASHANTI Hu) Anemia in chronic kidney disease (CKD) Essential hypertension GERD with esophagitis Gout Surgical History (Updated 06/06/21 @ 10:57 by Charu Agosto DO) History of section (1986) S/P arteriovenous (AV) fistula creation (~2002) Left arm S/p cadaver renal transplant (10/04/05) S/P total abdominal hysterectomy (01/16/09) For AUB; ovaries preserved Family History Son No problems noted. Son No problems noted. Social History Smoking/Tobacco Use Status: Never Smoking risk assessment performed?: Yes Alcohol Intake: current Alcohol Intake frequency: holidays/special occasions only Alcohol type: wine Substance use type: does not use Adopted: Yes Household members: other Details: Kp. 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 Robert works in [employer] Female Reproductive History Menstrual Menopause type: surgical History History 4 Para 2 Hx # Term Pregnancies Multiple births Hx # Pregnancies Ectopic pregnancies AB induced Hx Number of Living Children 2 AB spontaneous 2 Exam Const General: cooperative and ill appearing Eyes Pupils: PERRL Resp Effort & Inspection: normal respiratory effort Cardio Rate: regular rate Rhythm: regular rhythm GI Other: Distended abdomen, diminished bowel sounds, diffusely tender Skin General skin exam: no rashes or lesions noted Neuro General: patient alert and patient oriented x3 Extrem Other: Well-healing and approximated (surgical site upper extremity, no peripheral edema to bilateral lower extremities) Course Vital Signs Vital signs: Vital Signs Temperature 36.7 C 06/07/21 15:47 Pulse 87 06/07/21 15:47 Respiratory Rate 18 06/07/21 15:47 Blood Pressure 119/65 06/07/21 15:47 Pulse Oximetry 100 06/07/21 15:47 Temperature 36.7 C 06/07/21 15:47 Temperature Source Temporal Artery Scan 06/07/21 15:47 Pulse 87 06/07/21 15:47 Respiratory Rate 18 06/07/21 15:47 Blood Pressure 119/65 06/07/21 15:47 Blood Pressure Position Sitting 06/07/21 15:47 Pulse Oximetry 100 06/07/21 15:47 Oxygen Delivery Method Room Air 06/07/21 15:47 Oxygen Flow Rate 0 06/07/21 15:47 Pain Level 2 06/07/21 15:47 Lab/Test Results Lab/Test Results: Laboratory Tests Range/Units 06/07/21 06/07/21 06/07/21 16:15 16:15 16:15 WBC (4.4-10.8) 10^3/uL 6.99 RBC (3.93-5.22) 10^6/uL 4.24 Hgb (11.2-15.7) g/dL 11.9 Hct (36.0-46.0) % 37.5 MCV (80-95) fL 88.4 MCH (27.0-33.0) pg 28.1 MCHC (32.0-36.0) % 31.7 L RDW (11.7-14.6) % 16.3 H Plt Count (130-400) 10^3/uL 286 MPV (8.0-11.0) fL 10.2 Immature Gran % 0.7 Neutrophils % 67.0 Lymphocytes % 18.6 Monocytes % 12.4 Eosinophils % 1.0 Basophils % 0.3 Nucleated RBC % % 0 Absolute Neutrophils (1.2-6.7) 10^3/uL 4.68 Absolute Lymphocytes (1.2-3.4) 10^3/uL 1.30 Absolute Monocytes (0.1-0.8) 10^3/uL 0.87 H Absolute Eosinophils (0.0-0.7) 10^3/uL 0.07 Absolute Basophils (0.0-0.2) 10^3/uL 0.02 Sodium (136-145) mmol/L 123 L* Potassium (3.5-5.1) mmol/L 4.5 Chloride (98-107) mmol/L 83 L Carbon Dioxide (21.0-32.0) mmol/L 23.3 Anion Gap (3-11) mmol/L 16.7 H BUN (7-18) mg/dL 76 H Creatinine (0.55-1.02) mg/dL 12.5 H* Estimated GFR/1.73 m2 (mL/min/1.73m2) 3.04 Glucose (74-106) mg/dL 118 H Calcium (8.5-10.1) mg/dL 8.4 L Magnesium (1.8-2.4) mg/dL 2.4 Total Bilirubin (0.2-1.0) mg/dL 0.5 AST (15-37) U/L 18 ALT (14-59) U/L < 6 L Alkaline Phosphatase (46-116) U/L 116 Troponin I (<0.06) ng/mL 0.06 Total Protein (6.4-8.2) g/dL 7.1 Albumin (3.4-5.0) g/dL 2.7 L Lipase (73-393) U/L Range/Units 06/07/21 16:15 WBC (4.4-10.8) 10^3/uL RBC (3.93-5.22) 10^6/uL Hgb (11.2-15.7) g/dL Hct (36.0-46.0) % MCV (80-95) fL MCH (27.0-33.0) pg MCHC (32.0-36.0) % RDW (11.7-14.6) % Plt Count (130-400) 10^3/uL MPV (8.0-11.0) fL Immature Gran % Neutrophils % Lymphocytes % Monocytes % Eosinophils % Basophils % Nucleated RBC % % Absolute Neutrophils (1.2-6.7) 10^3/uL Absolute Lymphocytes (1.2-3.4) 10^3/uL Absolute Monocytes (0.1-0.8) 10^3/uL Absolute Eosinophils (0.0-0.7) 10^3/uL Absolute Basophils (0.0-0.2) 10^3/uL Sodium (136-145) mmol/L Potassium (3.5-5.1) mmol/L Chloride (98-107) mmol/L Carbon Dioxide (21.0-32.0) mmol/L Anion Gap (3-11) mmol/L BUN (7-18) mg/dL Creatinine (0.55-1.02) mg/dL Estimated GFR/1.73 m2 (mL/min/1.73m2) Glucose (74-106) mg/dL Calcium (8.5-10.1) mg/dL Magnesium (1.8-2.4) mg/dL Total Bilirubin (0.2-1.0) mg/dL AST (15-37) U/L ALT (14-59) U/L Alkaline Phosphatase (46-116) U/L Troponin I (<0.06) ng/mL Total Protein (6.4-8.2) g/dL Albumin (3.4-5.0) g/dL Lipase (73-393) U/L 21
[2021-06-07] MEDS: Ondansetron 4 MG/2 ML VIAL IVP (18:45)
[2021-06-07] MEDS: Omnipaque 350 MG/ML 100 ML BTL IV (19:03)
[2021-06-07] MEDS: Normal Saline Flush 10 ML SYR IVP (19:05)
--- NOTE | 2021-06-07 19:27 | DI.VRAD_ITS ---
PROCEDURE INFORMATION: Exam: CT Abdomen And Pelvis With Contrast Exam date and time: 06/07/2021 4:55 PM Age: 61 years old Clinical indication: Other: Vomiting, possible bowel obstruction, CT yesterday TECHNIQUE: Imaging protocol: Computed tomography of the abdomen and pelvis with contrast. Radiation optimization: All CT scans at this facility use at least one of these dose optimization techniques: automated exposure control; mA and/or kV adjustment per patient size (includes targeted exams where dose is matched to clinical indication); or iterative reconstruction. Contrast material: OMNIPAQUE 350; Contrast volume: 70 ml; Contrast route: INTRAVENOUS (IV); COMPARISON: CT ABDOMEN PELVIS W 06/06/2021 12:19 PM FINDINGS: Tubes, catheters and devices: Peritoneal dialysis catheter is noted, looped in the right pelvis adjacent to the terminal ileum. Lungs: Lung bases are clear. Heart: Mild cardiomegaly. Coronary artery calcifications. Diaphragm: Mild hiatal hernia. Liver: Unremarkable liver parenchyma. No suspicious mass. Gallbladder and bile ducts: Distended gallbladder. Dependent calcified stones. Hyperattenuating contents, likely biliary clearance of contrast from yesterday's exam. No specific inflammatory changes. Mild intrahepatic and extrahepatic ductal dilatation unchanged. Pancreas: Normal. No ductal dilation. Spleen: Normal. No splenomegaly. Adrenal glands: Normal. No mass. Kidneys and ureters: Small atrophic [place] kidneys. Simple cyst 2.0 cm left [place] kidney. Hypertrophied transplant kidney right lower quadrant with cortical thinning and numerous cysts. Negative for hydronephrosis. Stomach and bowel: Mildly distended stomach. Dilated small bowel, up to 3.5 cm at the distal ileum. Wall thickening noted at the terminal ileum and ileocecal valve, with fecalization of small bowel contents at the terminal ileum. Enteric contrast from yesterday's exam is diluted throughout the fluid-filled small bowel, and is not reached the colon. Most of the colon is collapsed, and there are no inflammatory changes around the colon. Appendix: No evidence of appendicitis. Intraperitoneal space: Foci of extraluminal air are noted around the distended terminal ileum. Please see axial image 56. Pneumatosis is observed at the terminal ileum. Mild adjacent free fluid is present. Negative for abscess or other loculated fluid collection. Vasculature: Negative for aneurysm. Moderate-severe arteriosclerotic calcifications, primarily at the aortoiliac bifurcation. Celiac trunk and superior mesenteric artery are patent, with moderate calcifications at their origins. Lymph nodes: Unremarkable. No enlarged lymph nodes. Urinary bladder: Severely collapsed urinary bladder. Reproductive: The uterus is surgically absent. Negative for adnexal mass or cyst. Bones/joints: Unremarkable. No acute fracture. Soft tissues: Complex abdominal wall hernia adjacent to the umbilicus, containing mild fluid. IMPRESSION: 1. Continued small bowel obstruction. 2. Transition point at the ileocecal valve. 3. Moderate wall thickening through the terminal ileum, with pneumatosis and a focus of extraluminal air. Fecalization of small bowel contents at the terminal ileum. Increased interstitial pressures suspected. Infectious enterocolitis favored. Inflammatory bowel disease or typhlitis considered. Lymphoma or other neoplasm involving the terminal ileum not excluded. 4. Stable cholelithiasis, distended gallbladder, and dilated bile ducts. Dictated and Authenticated by: Sánchez Sarmiento MD. Ordering:REA Stephens MD
[2021-06-07 22:02] LABS: Source Nasal/Nares
[2021-06-07] MEDS: PIPERACILLIN/TAZO 2.25 GM in Normal Saline 50 ML IVPB (22:07)
[2021-06-07 22:52] LABS: COVID-19 PCR Negative (Negative)
== END 2021-06-07 22:31 | disposition short-term general hospital (02) ==
PROVIDERS: Emergency Provider Physician Assistant; PCP Nurse Practitioner Family
DX: K56.699 Other intestinal obstruction unspecified as to partial versus complete obstruction (principal); K63.89 Other specified diseases of intestine; E87.1 Hypo-osmolality and hyponatremia; R11.2 Nausea with vomiting, unspecified; N18.6 End stage renal disease; Z99.2 Dependence on renal dialysis; Z20.822 Contact with and (suspected) exposure to COVID-19; Z03.818 Encounter for observation for suspected exposure to other biological agents ruled out
CPT/HCPCS: 36415; 80053; 83690; 87635; 93005; 96365; 96375; 99285; 74177; 83735; 84484; 85025; 93010; J2405; J2543; J3490

== ENCOUNTER 2021-07-05 14:21 | Outpatient (REF) | payer MEDICARE, BC, SELFPAY ==
--- NOTE | 2021-07-05 13:10 | PAPFT_PTH ---
PATIENT: Rocky Jerome LOC: [facility] U#:[id number] AGE/SX: 61/F ROOM: RE07/05/[address]: Chelle Olsen : 1960 BED: DIS: 07/05/2021 SPEC #: [id number] RECD: 07/05/21 18:15 STATUS: ANGELICA LEWIS #: [id number] NETTA: 07/05/21 13:[address]: Chelle Olsen DEPT: COUNTS INCLUDE 234 BEDS AT THE [facility] Cytology RECD BY: Kat Duarte ENTERED: 07/05/21 18:17 SP TYPE: PAPFT MERISSA DR: Annabel Macdonald, AUTOMATIC PINSETTER ADJUSTER Tissues: 1 - CX/ENDOCX FOR PAP SMEARS Procedures: PAP THIN PREP/UVM Screening Comments: [id number]
== END 2021-07-05 14:22 | disposition home or self-care (01) ==
LOC: LBN 14:21
PROVIDERS: PCP Nurse Practitioner Family; Visit Provider Obstetrics & Gynecology Gynecology
DX: Z12.4 Encounter for screening for malignant neoplasm of cervix (principal)
CPT/HCPCS: 88142

== ENCOUNTER 2021-09-06 07:33 | Emergency (ER) | payer MEDICARE, BC, SELFPAY ==
[2021-09-06] VITALS (28 sets, daily range): BP systolic 150–204; BP diastolic 61–96; PULSE 57–93; RESP 13–25; TEMP 36.3; O2SAT 92–99
--- NOTE | 2021-09-06 07:45 | RT.EKG_ITS ---
APPROVED REPORT Exam: Resting ECG Reason for Exam: gastric pain Patient Location: E HR:66 bpm ECG Measurements Heart Rate 66 AXIS ME 155 P 70 QRSd 92 QRS -30 QT 406 T 60 QTc 425 Conclusion Sinus rhythm...normal P axis, V-rate 60- 99 Probable left atrial enlargement...P >50mS, <-0.10mV V1 Left ventricular hypertrophy...multiple LVH criteria ST elevation, consider inferior injury...ST >0.08mV, II III aVF no st elevation when compared to portion after the t wave in inferior leads and no reciprocal depress ions
--- NOTE | 2021-09-06 08:00 | DI.CT_ITS ---
Exam(s) CT ABDOMEN PELVIS W EXAM: CT ABDOMEN PELVIS W CLINICAL HISTORY: ?small bowel obstruction. TECHNIQUE: Imaging Protocol: Axial computed tomography images with coronal and sagittal reformatted images were created and reviewed CONTRAST MATERIAL: Intravenous: Omnipaque 100cc Oral: None COMPARISON: CT CT ABDOMEN PELVIS W from 06/07/2021 FINDINGS: VISUALIZED LUNG BASES: No nodules nor pleural effusions evident. ABDOMEN: There is no ascites. LIVER: There are no focal hepatic lesions evident . GALLBLADDER/BILIARY: Gallstones are again noted. To the gallstones are in the gallbladder neck regio n. Slight gallbladder wall thickening although this is probably exaggerated by some motion artifact here. CBD diameter is upper normal. There are no calculi in the lower CBD. PANCREAS: There are few pancreatic parenchymal calcifications but no pancreatic mass evident and no d ilatation of the pancreatic duct. No peripancreatic fluid. SPLEEN: Spleen is not enlarged. No obvious intrasplenic lesions. Splenic and portal veins are paten t. ADRENALS: There are no significant adrenal masses. KIDNEYS:[place] kidneys are again noted to be atrophic. Benign cyst in the left kidney is again noted . This measures 1.4 cm.. Right-sided transplant kidney is again noted which contains numerous cysts , unchanged. Also a hemorrhagic cyst in its medial aspect measuring 8 millimeters, unchanged. Appea rs to be some streaking around the ureter from this transplant kidney, possibly significant. Is diff icult to follow the course of this transplant ureter. Urinary bladder is collapsed.. Cannot be eval uated ABDOMINAL AORTA: Calcified. Upper normal diameter. Common iliac arteries are also heavily calcified but not dilated. LYMPH NODES:There is no retroperitoneal nor paraaortic adenopathy. ABDOMINAL WALL: There is evidence of anterior abdominal hernia repair. Some postoperative changes ar e noted but no mass nor abnormal fluid collections seen at this level. GI: Small bowel loop diameters are upper normal. PELVIS: GI: No evidence of appendicitis.No evidence of sigmoid diverticulitis. LYMPH NODES: There is no intrapelvic nor inguinal adenopathy. REPRODUCTIVE: Uterus is atrophic or surgically absent. No ovarian masses seen. No free fluid in the pelvis. URINARY BLADDER: As above OSSEOUS: No significant osseous lesions. IMPRESSION: 1. Compared to the prior CT scan of 06/07/2021 there is presently no evidence of small-bowel obstruct ion. 2. Cholelithiasis is again noted. Calculi are noted in the gallbladder neck. It is difficult to ass ess the true thickness of the gallbladder wall due to the amount respiratory motion here. 3. Atrophic [place] kidneys again noted. Benign cysts in the [place] left kidney again noted. 4. Right transplant kidney again exhibits numerous cysts and there is streaking around the transplant ureter noted, similar to previous.. However, there is no obvious hydronephrosis of the transplant k idney. The [place] urinary bladder is collapsed. There is no evidence of peritoneal dialysis catheter, as was the case on the prior CT scan. Given th e appearance of the transplant kidney I suspect that this patient has progressed to hemodialysis. Findings discussed by phone with ER physician RADIATION DOSE DELIVERED: 507.64mGy.cm Total DLP DATA REPOSITORY: All CT scans at this facility are submitted to the National Radiology Data Registry (NRDR) Dose Index Registry (DIR) with the [employer] (ACR). RADIATION OPTIMIZATION: All CT scans at this facility use at least one of these dose optimization te chniques: automated exposure control; mA and/or kV adjustment per patient size (includes targeted exa ms where dose is matched to clinical indication); or iterative reconstruction.
--- NOTE | 2021-09-06 08:11 | ED.GENADUL_ITS ---
Discharge Plan Disposition Patient Disposition: [facility] Condition: Serious Discharge Details Clinical Impression: Acute pancreatitis, Hyperkalemia, Abdominal pain, Acute electrocardiogram changes Primary Care Provider: Annabel Macdonald ED Provider: Srinivas Ochoa Home Meds and New Rx's Prescriptions: No Action calcitriol 0.25 mcg capsule 0.25 mcg PO DAILY 0RF sennosides [Senokot] 8.6 mg tablet 8.6 mg PO DAILY 0RF amlodipine 10 mg tablet 10 mg PO DAILY 0RF tacrolimus 0.5 mg capsule 0.5 - 1 mg PO BID 0RF Label Comments: 2 caps in morning, 1 capsule in evening sevelamer carbonate [Renvela] 800 mg tablet 1,600 mg PO TID 0RF Rx Instructions: 2 tabs TID with meals ascorbic acid (vitamin C) 500 mg capsule 500 mg PO BID 0RF Rx Instructions: 1 cap twice a day Vitamin B-12 1,000 mcg/mL drops 1,000 mcg PO DAILY 0RF Rx Instructions: 1 dropperful daily omeprazole 20 mg capsule,delayed release(DR/EC) 20 mg PO DAILY Qty: 90 4RF cinacalcet 30 mg tablet 30 mg PO DAILY 0RF Rx Instructions: 1 tablet once a day allopurinol 100 mg Tablet 100 mg PO DAILY 0RF aspirin 81 mg Tablet,Delayed Release (Dr/Ec) 81 mg PO DAILY 0RF Discharge Data Discharge Date/Time-TO BE ENTERED AT DEPARTURE: 09/06/21 15:31 Medical Decision Making <Sánchez Narayanan MD - Last Filed: 09/06/21 11:49> 61 yo female with hx of esrd who has dialysis t/ and has had multiple pr ior abdominal surgeries comes in with 3 days of abdominal pain. Denies any chest pain, dyspnea, vomit though has had nausea. She did have an sbo and an ex lap done [place] [facility] [place], she is not sure if this feels similar to that episode. She is in no distress though does appear in pain. She points to the right side of her abdomen. She is tender with palpation to the ruq and rlq , no left sided tenderness and no noticeable distention on exam. Did go to dialysis but only had one hour of her session done and was stopped early due to her pain and was sent here. Given location of pain and her history will obtain labs to evaluate for possible pancreatitis and ct to evaluate for cholecystitis, sbo, and appendicitis among other pathology. patient's pain improved with fentanyl, labs show lipase of over 700 that is new for her and ct shows continued gallstones at the neck of the gallbladder, no sbo on imaging. Her K is 7.1 so insulin/dextrose as well as calcium ordered, will hold on oral agents given the gallstone pancreatitis. Will discuss with [facility] for transfer given she will need dialysis today. [facility] unable to accept in transfer at this time as they are at capacity, [facility] called and waiting to hear back. PT still hemodynamically stable at this time spoke with Dr. Rapp from [facility] nephrology who requested a repeat bmp be done to assess how much the K has changed before deciding on appropriate unit bed for the patient. She also recommended lokelhi. repeat K is 6.9, call placed to [facility] awaiting callback. Pt continues to be stable, has mild tenderness on abdominal exam. Dr. Rapp did not feel she required dialysis today and could wait until tomorrow, spoke with hospitalist Dr. de la fuente at [facility] who accepts for transfer tomorrow. [facility] did call back and advised [facility] now may have a bed, pt stable awaiting call from [facility] Spoke with Dr. Pinzon from [facility] and they would not be able to dialyze her today and he would like to have another bmp done to make sure the K is again not going up before accepting her, this will be done around 230pm Differential Diagnosis Differential Diagnosis: sbo, cholecystitis, appendicitis Medical Records Medical records reviewed: Yes I reviewed the patient's medical records. Imaging Data Radiologic Study: Attestation: I personally reviewed and interpreted this imaging study as follows: Imaging: CT Scan Radiologist's impression: IMPRESSION: 1. Compared to the prior CT scan of 06/07/2021 there is presently no evidence of small-bowel obstruction. 2. Cholelithiasis is again noted.? Calculi are noted in the gallbladder neck.? It is difficult to assess the true thickness of the gallbladder wall due to the amount respiratory motion here. 3. Atrophic [place] kidneys again noted.? Benign cysts in the [place] left kidney again noted. 4. Right transplant kidney again exhibits numerous cysts and there is streaking around the transplant ureter noted, similar to previous..? However, there is no obvious hydronephrosis of the transplant kidney.? The [place] urinary bladder is collapsed. Lab Data Lab results reviewed: Yes I reviewed the patient's lab results. ECG Data Attestation: I personally reviewed and interpreted this ECG (s) as follows: Prior ECG tracings: available for review Interpretation: sinus rhythm, rate of 66, machine reads st elevation but is not elevated compared to portion immediately after the t wave, no significant st depressions <Srinivas Ochoa MD - Last Filed: 09/21/21 07:57> 61 yo female with hx of esrd who has dialysis t//sun and has had multiple prior abdominal surgeries comes in with 3 days of abdominal pain. Denies any chest pain, dyspnea, vomit though has had nausea. She did have an sbo and an ex lap done at [facility] in [place], she is not sure if this feels similar to that episode. She is in no distress though does appear in pain. She points to the right side of her abdomen. She is tender with palpation to the ruq and rlq , no left sided tenderness and no noticeable distention on exam. Did go to dialysis but only had one hour of her session done and was stopped early due to her pain and was sent here. Given location of pain and her history will obtain labs to evaluate for possible pancreatitis and ct to evaluate for cholecystitis, sbo, and appendicitis among other pathology. patient's pain improved with fentanyl, labs show lipase of over 700 that is new for her and ct shows continued gallstones at the neck of the gallbladder, no sbo on imaging. Her K is 7.1 so insulin/dextrose as well as calcium ordered, will hold on oral agents given the gallstone pancreatitis. Will discuss with [facility] for transfer given she will need dialysis today. [facility] unable to accept in transfer at this time as they are at capacity, [facility] called and waiting to hear back. PT still hemodynamically stable at this time spoke with Dr. Rapp from [facility] nephrology who requested a repeat bmp be done to assess how much the K has changed before deciding on appropriate unit bed for the patient. She also recommended lokelma. repeat K is 6.9, call placed to [facility] awaiting callback. Pt continues to be stable, has mild tenderness on abdominal exam. Dr. Rapp did not feel she required dialysis today and could wait until tomorrow, spoke with hospitalist Dr. de la fuente at [facility] who accepts for transfer tomorrow. [facility] did call back and advised [facility] now may have a bed, pt stable awaiting call from [facility] Spoke with Dr. Pinzon from [facility] and they would not be able to dialyze her today and he would like to have another bmp done to make sure the K is again not going up before accepting her, this will be done around 230pm 1241-- I, Srinivas Ochoa MD, recieved signout from Dr. Narayanan. The following documentation is my own. Documentation above and in Hx, ROS, and PE sections were documented by Dr. Narayanan. Please refer to his note regarding initial ED presentation and course. Plan at signout is to followup on third BMP and contact [facility] transfer center with results for potential transfer to [facility] vs if not appropropriate hold at [facility] for transfer to [facility] (likely tomorrow). Will also obtain RUQ ultrasound. 1340 -- Third K remains elevated at 7.3. I called [facility] transfer center and provided this updat for [place] hospitalist and also requested [facility] nephrology consultation in this case. 1435 -- I spoke with hospitalist at [place] who refuses to accept patient due to lack of dialysis capacity today. Repeat EKG was performed and reviewed interpreted by me: Please see report, concern for new left bundle branch block that was not apparent on prior with increase peaked T waves. Will give second dose calcium gluconate. I spoke with [facility] nephology Dr. Yen who feels patient can be managed until dialysis tomorrow. Hospitalist cannot admit to [facility] and with EKG changes I am concerned that patient would benefit from dialysis today. I spoke with transfer health center manager at [facility] Dr. Kamara and discussed case with him - he notes [facility] cannot accept for ED dialysis even if we could accpet patient back for hospitalization. I have contacted [facility] transfer center again to request consultation with nephology. 1445 -- I spoke with Dr. Rapp [facility] nephrology who recommends transfer. Spoke with Dr. Herring in [facility] ED, discussed ED presentation and course, he will accept the patient in transfer for dialysis. RUQ US interpreted by radiology: IMPRESSION: 1.? Cholelithiasis.? Multiple gallstones.? Gallbladder wall thickness upper normal. 2.? No other significant ultrasound findings in the right upper quadrant. 3.? There is no ascites. HPI <Sánchez Narayanan MD - Last Filed: 09/06/21 11:49> General Mode of arrival: ambulatory . Date/Time Provider Initiated Documentation: 09/06/21 07:54 . Limitations to Documentation: no limitations . Information obtained by: patient . History of Present Illness 61 year old F presents to the emergency department with the chief complaint of abdominal pain, described as moderate, Quality is described as sharp, and is localized to the abdomen. Patient reports no radiation. Patient started experiencing this day(s) (3) and it has been constant. No exacerbating factors reported . Patient notes denies chest pain and fever/chills. Patient did receive the following treatments prior to arrival, none Related Data Home Medications Medication Instructions Recorded Confirmed allopurinol 100 mg tablet 100 mg PO DAILY 02/18/19 09/16/21 aspirin 81 mg tablet,delayed 81 mg PO DAILY 02/19/19 09/16/21 release ascorbic acid (vitamin C) 500 mg 500 mg PO BID cap 04/24/19 09/16/21 capsule cyanocobalamin (vitamin B-12) 1,000 mcg PO DAILY 04/24/19 09/16/21 1,000 mcg/mL oral drops (Vitamin B-12) sevelamer carbonate 800 mg tablet 1,600 mg PO TID tab 04/24/19 09/16/21 (Renvela) tacrolimus 0.5 mg capsule, 0.5 - 1 mg PO BID cap 04/24/19 09/16/21 immediate-release cinacalcet 30 mg tablet 30 mg PO DAILY tab 12/27/20 09/16/21 calcitriol 0.25 mcg capsule 0.25 mcg PO DAILY 03/21/21 09/16/21 omeprazole 20 mg capsule,delayed 20 mg PO DAILY #90 cap 05/02/21 09/16/21 release amlodipine 10 mg tablet 10 mg PO DAILY 07/06/21 09/16/21 sennosides 8.6 mg tablet (Senokot) 8.6 mg PO DAILY 07/06/21 09/16/21 Previous Rx's Medication Instructions Recorded omeprazole 20 mg capsule,delayed 20 mg PO DAILY #90 cap 05/02/21 release Allergies Allergy/AdvReac Type Severity Reaction Status Date / Time lidocaine Allergy Severe RASH Verified 09/15/21 15:27 lisinopril AdvReac Mild Cough Verified 09/15/21 15:27 milk AdvReac Mild DIARRHEA Verified 09/15/21 15:27 General Stated Complaint: Abd Prob CJ: 3 Review of Systems <Sánchez Narayanan MD - Last Filed: 09/06/21 11:49> All systems reviewed & are unremarkable except as noted in HPI and below Constitutional Constitutional: Denies chills, Denies fever(s) and Denies weakness Cardiovascular Cardiovascular: Denies chest pain and Denies dyspnea Respiratory Respiratory: Denies cough and Denies dyspnea Gastrointestinal Gastrointestinal: Denies vomiting Genitourinary Genitourinary: Denies dysuria Musculoskeletal Musculoskeletal: Denies joint swelling Integumentary/Breasts Skin/Breast: Denies rash Neurologic Neurologic: Denies weakness PFS <Sánchez Narayanan MD - Last Filed: 09/06/21 11:49> All Active Problems (Updated 09/16/21 @ 09:19 by Annabel Macdonald NP) Thrombocytopenia (Acute) Hyperkalemia (Acute) End-stage renal disease (ESRD) (Chronic) Due to hypertensive nephrosclerosis s/p kidney transplant in 2005 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 Currently on peritoneal dialysis. 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 Colpo VAIN2. CO2 Laser Rx at [facility] GynOnc 2013. Colpo Bx VAIN1. 08/2014. HGSIL. +HPV. 05/2015 Neg Pap 10/2015 ASCUS Pap. 07/2016 ASCUS, 12/2016 ASC-H. 12/2017 Pap Normal 01/2019. Pap normal Rectocele (Chronic) 2019. Stage3 with Valsalva. Expectant management at this time. Gout (Chronic) Hernia of anterior abdominal wall (Chronic) Surgical History H/O ligation of vein (05/26/21) Ligation of LUE AVF History of section (1986) S/P arteriovenous (AV) fistula creation (~2002) Left arm S/p cadaver renal transplant (10/04/05) S/P exploratory laparotomy (06/10/21) S/P total abdominal hysterectomy (01/16/09) For AUB; ovaries preserved Family History Son No problems noted. Son No problems noted. Social History Smoking/Tobacco Use Status: Never Smoking risk assessment performed?: Yes Alcohol Intake: current Alcohol Intake frequency: holidays/special occasions only Alcohol type: wine Substance use type: does not use Adopted: Yes Household members: other Details: Kp. 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 Robert works in [employer] Female Reproductive History Menstrual Menopause type: surgical History History 4 Para 2 Hx # Term Pregnancies Multiple births Hx # Pregnancies Ectopic pregnancies AB induced Hx Number of Living Children 2 AB spontaneous 2 Exam <Sánchez Narayanan MD - Last Filed: 09/06/21 11:49> Const General: no acute distress Orientation: alert [facility] Head: normal to inspection Ears: external ears normal General nose exam: external nose normal Mouth: moist mucous membranes Eyes General: appearance normal, both eyes and all related structures Neck Neck: normal visual inspection Resp Effort & Inspection: normal respiratory effort and able to speak in complete sentences Cardio Rate: regular rate GI Palpation: soft and tender Skin General skin exam: no rashes or lesions noted Neuro General: patient alert and patient oriented x3 Extrem General: normal to inspection Psych Mental Status: mental status grossly normal Course <Sánchez Narayanan MD - Last Filed: 09/06/21 11:49> Vital Signs Vital signs: Vital Signs Temperature 36.3 C L 09/06/21 07:44 Pulse 68 09/06/21 07:44 Respiratory Rate 18 09/06/21 07:44 Blood Pressure 167/74 H 09/06/21 07:44 Pulse Oximetry 99 09/06/21 07:44 Temperature 36.3 C L 09/06/21 07:44 Temperature Source Temporal Artery Scan 09/06/21 07:44 Pulse 68 09/06/21 07:44 Respiratory Rate 18 09/06/21 07:44 Respiratory Effort Non-Labored 09/06/21 07:49 Blood Pressure 167/74 H 09/06/21 07:44 Blood Pressure Position Sitting 09/06/21 07:44 Pulse Oximetry 99 09/06/21 07:44 Oxygen Delivery Method Room Air 09/06/21 07:44 Oxygen Flow Rate 0 09/06/21 07:44 Critical Care Time <Sánchez Narayanan MD - Last Filed: 09/06/21 11:49> Critical Care Time Critical Care Time: Yes Total Critical Care Time: 60 (minutes) Attestation: time spent on lab review and administering IV calcium, insulin/dextrose in a patient with life threatening hyperkalemia and potential to deteriorate at any time and requiring frequent reassessments
[2021-09-06 08:16] LABS: Abs Immature Grans 0.05 10^3/uL (0.0-0.06); Absolute Basophil Count 0.02 10^3/uL (0.0-0.2); Absolute Monocyte Count 0.58 10^3/uL (0.1-0.8); Absolute Neutrophil Count 7.68 10^3/uL (1.2-6.7); Basophils % 0.2; HGB 13.5 g/dL (11.2-15.7); Immature Grans % 0.5; MCH 27.9 pg (27.0-33.0); MCHC 30.7 % (32.0-36.0); MCV 90.9 fL (80-95); Monocytes % 5.8; Neutrophils % 76.5; Nucleated RBC 0 %; RBC 4.84 10^6/uL (3.93-5.22); RDW-SD 60.3 fL; WBC 10.03 10^3/uL (4.4-10.8)
[2021-09-06 08:31] LABS: ALT 35 U/L (14-59); AST 28 U/L (15-37); Albumin 3.9 g/dL (3.4-5.0); Alkaline Phosphatase 192 U/L (46-116); Anion Gap 14.1 mmol/L (3-11); Bilirubin, Direct 0.1 mg/dL (0.0-0.2); Bilirubin, Total 0.5 mg/dL (0.2-1.0); CO2 24.9 mmol/L (21.0-32.0); Calcium 11.2 mg/dL (8.5-10.1); Chloride 94 mmol/L (98-107); Estimated GFR 3.84 (mL/min/1.73m2); Glucose 116 mg/dL (74-106); Lipase 721 U/L (73-393); Magnesium 3.8 mg/dL (1.8-2.4); Sodium 133 mmol/L (136-145); Total Protein 8.4 g/dL (6.4-8.2)
[2021-09-06] MEDS: Omnipaque 350 MG/ML 100 ML BTL IJ (08:31)
[2021-09-06 08:34] LABS: BUN 152 mg/dL (7-18); CREATININE 10.2 mg/dL (0.55-1.02); Platelet Count 68 10^3/uL (130-400); Potassium 7.1 mmol/L (3.5-5.1)
[2021-09-06] MEDS: fentaNYL 100 MCG/2 ML VIAL 40 MCG IVP (08:39)
[2021-09-06 08:51] LABS: Source Nasal/Nares
[2021-09-06 08:53] LABS: ETHANOL BLOOD < 3.0 mg/dL (<10)
[2021-09-06] MEDS: Calcium Gluconate 4.65 MEQ/10 ML VIAL 4.65 MG IVP ×2 (09:13→15:20)
[2021-09-06 09:30] LABS: COVID-19 PCR Negative (Negative)
[2021-09-06] MEDS: Dextrose 50%-Water 25 GM/50 ML SYR IVP (09:48)
[2021-09-06] MEDS: Insulin REGULAR-Human 100 UNITS/ML UNIT 10 UNITS IV (09:54)
[2021-09-06] MEDS: Sodium Zirconium Cyclosilicate 10 GM PKT PO (10:45)
[2021-09-06 11:09] LABS: Chloride 94 mmol/L (98-107); Estimated GFR 3.75 (mL/min/1.73m2); Glucose 127 mg/dL (74-106); Sodium 132 mmol/L (136-145)
[2021-09-06 11:12] LABS: Calcium 11.6 mg/dL (8.5-10.1)
[2021-09-06 11:13] LABS: BUN 150 mg/dL (7-18); CREATININE 10.4 mg/dL (0.55-1.02); Potassium 6.9 mmol/L (3.5-5.1)
--- NOTE | 2021-09-06 12:30 | DI.US_ITS ---
Exam(s) US ABDOMEN LIMITED EXAM: US ABDOMEN LIMITED CLINICAL HISTORY: RUQ, abd pain TECHNIQUE: Ultrasound abdomen performed using standard protocol. COMPARISON: US US THYROID from 04/15/[address] ABDOMEN PELVIS W from 09/06/2021 FINDINGS: There is no ascites evident. LIVER: There are no hepatic lesions evident nor dilatation of intrahepatic ducts. GALLBLADDER/BILIARY: There are multiple gallstones. Gallbladder wall thickness is upper normal. The re is no obvious pericholecystic fluid. The common hepatic duct isupper normal, measuring 6-7mm at the level of pj hepatis. PANCREAS: There is no evidence of pancreatic mass nor dilatation of the pancreatic duct. RIGHT KIDNEY:Atrophic, as seen on CT scan . Patient is dialysis patient IMPRESSION: 1. Cholelithiasis. Multiple gallstones. Gallbladder wall thickness upper normal. 2. No other significant ultrasound findings in the right upper quadrant. 3. There is no ascites. DATA REPOSITORY:
[2021-09-06 13:15] LABS: Anion Gap 14.7 mmol/L (3-11); CO2 22.3 mmol/L (21.0-32.0); Chloride 94 mmol/L (98-107); Estimated GFR 3.71 (mL/min/1.73m2); Glucose 89 mg/dL (74-106); Sodium 131 mmol/L (136-145)
[2021-09-06 13:21] LABS: BUN 156 mg/dL (7-18); CREATININE 10.5 mg/dL (0.55-1.02); Calcium 11.6 mg/dL (8.5-10.1); Potassium 7.3 mmol/L (3.5-5.1)
--- NOTE | 2021-09-06 14:15 | RT.EKG_ITS ---
APPROVED REPORT Exam: Resting ECG Reason for Exam: elevated potassium Patient Location: E HR:59 bpm ECG Measurements Heart Rate 59 AXIS VA 197 P 63 QRSd 130 QRS -63 QT 455 T 63 QTc 452 Conclusion Sinus bradycardia...rate< 60 Left bundle branch block...QRSd>120, broad/notched R ST elevation secondary to IVCD...Multiple VCG criteria new bundle compared to prior. T waves more peaked.
--- NOTE | 2021-09-06 15:01 | NUR.NOTE ---
Nursing Note: 1501 notified that the patient is being transferred to [facility]. Imelda Liriano
== END 2021-09-06 15:31 ==
PROVIDERS: Emergency Medicine; Emergency Provider Student in an Organized Health Care Education/Training Program; PCP Nurse Practitioner Family
DX: K85.90 Acute pancreatitis without necrosis or infection, unspecified (principal); E87.5 Hyperkalemia; R10.13 Epigastric pain; R10.11 Right upper quadrant pain; I12.0 Hypertensive chronic kidney disease with stage 5 chronic kidney disease or end stage renal disease; N18.6 End stage renal disease; Z99.2 Dependence on renal dialysis; Z79.899 Other long term (current) drug therapy
CPT/HCPCS: 36415; 36416; 80048; 80053; 82962; 83690; 87635; 93005; 96374; 96375; 96376; 99291; 74177; 76705; 80320; 82248; 83735; 85025; 93010; J0610; J3010; J3490

== ENCOUNTER 2021-10-20 13:15 | Emergency (ER) | payer MEDICARE, BC, SELFPAY ==
[2021-10-20] VITALS (13 sets, daily range): BP systolic 183–203; BP diastolic 72–88; PULSE 61–69; RESP 14–16; TEMP 36.9–37.1; O2SAT 95–99
--- NOTE | 2021-10-20 13:49 | W.ED.GENAD ---
Discharge Plan Disposition Patient Disposition: HOME Condition: Improving Discharge Details Clinical Impression: Headache Primary Care Provider: Annabel Macdonald ED Provider: Chris Paul Home Meds and New Rx's Prescriptions: Continued calcitriol 0.25 mcg capsule 0.25 mcg PO DAILY 0RF amlodipine 10 mg tablet 10 mg PO DAILY 0RF tacrolimus 0.5 mg capsule 0.5 - 1 mg PO BID 0RF Label Comments: 2 caps in morning, 1 capsule in evening sevelamer carbonate [Renvela] 800 mg tablet 1,600 mg PO TID 0RF Rx Instructions: 2 tabs TID with meals ascorbic acid (vitamin C) 500 mg capsule 500 mg PO BID 0RF Rx Instructions: 1 cap twice a day Vitamin B-12 1,000 mcg/mL drops 1,000 mcg PO DAILY 0RF Rx Instructions: 1 dropperful daily omeprazole 20 mg capsule,delayed release(DR/EC) 20 mg PO DAILY Qty: 90 4RF cinacalcet 30 mg tablet 30 mg PO DAILY 0RF Rx Instructions: 1 tablet once a day allopurinol 100 mg Tablet 100 mg PO DAILY 0RF aspirin 81 mg Tablet,Delayed Release (Dr/Ec) 81 mg PO DAILY 0RF carvedilol 12.5 mg tablet 25 mg PO BID 0RF Label Comments: Take 2 tablet by mouth twice a day losartan 100 mg tablet 100 mg PO BID 0RF Label Comments: Take 1 tablet by mouth twice a day as directed Velphoro 500 mg tablet,chewable 500 mg PO TID 0RF Label Comments: CRUSH OR CHEW AND SWALLOW 1 TABLET 3 TIMES A DAY WITH MEALS Discharge Instructions Instructions: General Headache (ED) Additional Instructions: Please be seen by your primary care physician. Education take your medication as prescribed. Please return to the emergency department for any worsening symptoms including severe headache nausea vomiting weakness numbness or other abnormal symptoms. Medical Decision Making 61-year-old female history of end-stage renal disease on hemodialysis, hypertension, recurrent headaches presents with headache posterior occipital region beginning around 8 AM, no photophobia phonophobia, nonmeningeal afebrile, nontoxic, no vomiting, full strength cranial nerves intact normal speech, blood pressure downtrending from arrival was in the 200s on arrival now 180, consider migraine versus tension type headache versus hypertensive emergency versus must consider intracranial hemorrhage or edema however less likely; very unlikely meningitis or traumatic injury or infectious process. Screening labs, CT head, Reglan close reassessment will trend blood pressure if continuing to stabilize will not administer antihypertensive however if pressure worsens consider hydralazine 15: 18 patient resting comfortably feeling better after Reglan. Blood pressures improved. Neurologically intact. However CT scan showing subtle area of white matter changes in the right supraventricular white matter recommending MRI to determine if patient has an acute infarct. 17: 08 MRI showing chronic white matter changes. Patient resting comfortably asymptomatic. Neurologic intact we will follow-up with her primary care team in the coming weeks. HPI General Date/Time Provider Initiated Documentation: 10/20/21 13:19. HPI Narrative: 61-year-old female history of hypertension, end-stage renal disease on hemodialysis, history of recurrent headaches without definitive diagnosis of migraine, was at hemodialysis earlier today, developed a gradual onset posterior headache around 8 AM this morning, denies photophobia phonophobia nausea vomiting weakness change in speech or other systemic symptoms. No chest pain or shortness of breath. Related Data Home Medications Medication Instructions Recorded Confirmed allopurinol 100 mg tablet 100 mg PO DAILY 02/18/19 10/20/21 aspirin 81 mg tablet,delayed 81 mg PO DAILY 02/19/19 10/20/21 release ascorbic acid (vitamin C) 500 mg 500 mg PO BID cap 04/24/19 10/20/21 capsule cyanocobalamin (vitamin B-12) 1,000 mcg PO DAILY 04/24/19 10/20/21 1,000 mcg/mL oral drops (Vitamin B-12) sevelamer carbonate 800 mg tablet 1,600 mg PO TID tab 04/24/19 09/16/21 (Renvela) tacrolimus 0.5 mg capsule, 0.5 - 1 mg PO BID cap 04/24/19 10/20/21 immediate-release cinacalcet 30 mg tablet 30 mg PO DAILY tab 12/27/20 10/20/21 calcitriol 0.25 mcg capsule 0.25 mcg PO DAILY 03/21/21 10/20/21 omeprazole 20 mg capsule,delayed 20 mg PO DAILY #90 cap 05/02/21 10/20/21 release amlodipine 10 mg tablet 10 mg PO DAILY 07/06/21 10/20/21 carvedilol 12.5 mg tablet 25 mg PO BID 10/20/21 10/20/21 losartan 100 mg tablet 100 mg PO BID 10/20/21 10/20/21 sucroferric oxyhydroxide 500 mg 500 mg PO TID 10/20/21 10/20/21 chewable tablet (Velphoro) Previous Rx's Medication Instructions Recorded omeprazole 20 mg capsule,delayed 20 mg PO DAILY #90 cap 05/02/21 release Allergies Allergy/AdvReac Type Severity Reaction Status Date / Time lidocaine Allergy Severe RASH Verified 10/20/21 13:28 lisinopril AdvReac Mild Cough Verified 10/20/21 13:28 milk AdvReac Mild DIARRHEA Verified 10/20/21 13:28 General Stated Complaint: Headache CJ: 2 Review of Systems Narrative: Review of Systems Constitutional: negative Eyes: negative ENT: negative Cardiovascular: negative Respiratory: negative Gastrointestinal: negative : negative Musculoskeletal: negative Skin: negative Neurologic: Headache Psych: negative PFSH All Active Problems (Updated 10/20/21 @ 17:12 by Chris Paul MD) Headache (Acute) Thrombocytopenia (Acute) End-stage renal disease (ESRD) (Chronic) Due to hypertensive nephrosclerosis s/p kidney transplant in 2005 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 Currently on peritoneal dialysis. 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 Colpo VAIN2. CO2 Laser Rx at [facility] GynOnc 2013. Colpo Bx VAIN1. 08/2014. HGSIL. +HPV. 05/2015 Neg Pap 10/2015 ASCUS Pap. 07/2016 ASCUS, 12/2016 ASC-H. 12/2017 Pap Normal 01/2019. Pap normal Rectocele (Chronic) 2018. Stage3 with Valsalva. Expectant management at this time. Gout (Chronic) Hernia of anterior abdominal wall (Chronic) Surgical History H/O ligation of vein (05/26/21) Ligation of LUE AVF History of section (1986) S/P arteriovenous (AV) fistula creation (~2002) Left arm S/p cadaver renal transplant (10/04/05) S/P exploratory laparotomy (06/10/21) S/P total abdominal hysterectomy (01/16/09) For AUB; ovaries preserved Family History Son No problems noted. Son No problems noted. Social History Smoking/Tobacco Use Status: Never Smoking risk assessment performed?: Yes Alcohol Intake: current Alcohol Intake frequency: 0-2 drinks per day Alcohol type: wine Substance use type: does not use Adopted: Yes Household members: other Details: Kp. 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 Robert works in [employer] Female Reproductive History Menstrual Menopause type: surgical History History 4 Para 2 Hx # Term Pregnancies Multiple births Hx # Pregnancies Ectopic pregnancies AB induced Hx Number of Living Children 2 AB spontaneous 2 Exam Narrative Exam Narrative: Physical Examination General: alert, awake, cooperative, resting comfortably, no acute distress HEENT: normocephalic, atraumatic; PERRL, EOM intact, conjunctiva normal; no nasal discharge; moist mucous membranes, oral and pharyngeal mucosa normal, tolerating secretions Neck: supple, trachea midline; full ROM Chest: normal to inspection Respiratory: normal respiratory effort, speaking in full sentences, clear to auscultation, no wheezing, rales or rhonchi Cardiac: regular rate, regular rhythm, S1S2 intact, no murmurs rubs or gallops GI: abdomen soft, non-tender, non-distended; no palpable mass or hepatosplenomegaly Skin: no lesions, rashes or trauma appreciated Neuro: AAOx3, normal speech, moving all extremities; 5 out of 5 strength upper and lower extremities bilaterally, cranial nerves II through XII intact Psych: Appropriate mood and affect Course Vital Signs Vital signs: Vital Signs Temperature 36.9 C 10/20/21 13:21 Pulse 67 10/20/21 13:21 Respiratory Rate 15 10/20/21 13:21 Blood Pressure 203/86 H 10/20/21 13:21 Pulse Oximetry 98 10/20/21 13:21 Temperature 36.9 C 10/20/21 13:21 Temperature Source Temporal Artery Scan 10/20/21 13:21 Pulse 67 10/20/21 13:21 Respiratory Rate 15 10/20/21 13:21 Blood Pressure 203/86 H 10/20/21 13:21 Blood Pressure Position Supine 10/20/21 13:21 Pulse Oximetry 98 10/20/21 13:21 Oxygen Delivery Method Room Air 10/20/21 13:21 Oxygen Flow Rate 0 10/20/21 13:21 Pain Level 8 10/20/21 13:21
[2021-10-20] MEDS: Metoclopramide 10 MG/2 ML VIAL IVP (14:00)
[2021-10-20 14:02] LABS: Abs Immature Grans 0.02 10^3/uL (0.0-0.06); Absolute Basophil Count 0.02 10^3/uL (0.0-0.2); Absolute Eosinophil Count 0.37 10^3/uL (0.0-0.7); Absolute Lymphocyte Count 0.95 10^3/uL (1.2-3.4); Absolute Monocyte Count 0.43 10^3/uL (0.1-0.8); Absolute Neutrophil Count 3.65 10^3/uL (1.2-6.7); Basophils % 0.4; Eosinophils % 6.8; HCT 34.1 % (36.0-46.0); HGB 10.7 g/dL (11.2-15.7); Immature Grans % 0.4; Lymphocytes % 17.5; MCH 28.2 pg (27.0-33.0); MCHC 31.4 % (32.0-36.0); MPV 8.5 fL (8.0-11.0); Monocytes % 7.9; RBC 3.79 10^6/uL (3.93-5.22); RDW 17.1 % (11.7-14.6); RDW-SD 56.3 fL; WBC 5.44 10^3/uL (4.4-10.8)
[2021-10-20 14:11] LABS: Platelet Count 91 10^3/uL (130-400)
[2021-10-20 14:14] LABS: ALT 45 U/L (14-59); AST 28 U/L (15-37); Albumin 3.2 g/dL (3.4-5.0); Alkaline Phosphatase 132 U/L (46-116); Anion Gap 3.1 mmol/L (3-11); BUN 23 mg/dL (7-18); Bilirubin, Total 0.5 mg/dL (0.2-1.0); CO2 32.9 mmol/L (21.0-32.0); CREATININE 3.5 mg/dL (0.55-1.02); Calcium 8.9 mg/dL (8.5-10.1); Chloride 99 mmol/L (98-107); Estimated GFR 13.19 (mL/min/1.73m2); Glucose 147 mg/dL (74-106); Potassium 4.2 mmol/L (3.5-5.1); Sodium 135 mmol/L (136-145); Total Protein 6.8 g/dL (6.4-8.2)
--- NOTE | 2021-10-20 14:40 | DI.CT_ITS ---
Exam(s) CT HEAD WO EXAM: CT HEAD WO CLINICAL HISTORY: headache, HTN, esrd. TECHNIQUE: Imaging Protocol: Axial computed tomography images with coronal and sagittal reformatted images were created and reviewed COMPARISON: No exams were available for comparison FINDINGS: There are no skull fractures nor fluid in the visualized paranasal sinuses. There is no evidence of intracranial hemorrhage, mass effect, or shift of midline structures. There are no extra-axial fluid collections. The ventricles are not enlarged or shifted and there is no blo od within the ventricular system nor within the basal cisterns. A subtle area of asymmetric hypodensity right supra ventricular white, possibly related to nonhemorrh agic ischemic event. There is heavy calcification noted arteries at skull as well intra cavernous and supraclinoid aspects both internal carotid IMPRESSION: Subtle area of white matter hypodensity in right supra ventricular white matter, this superimposed up on some bilateral periventricular hypodensity. Recommend follow-up MRI to determine if there is acut e infarct area superimposed upon chronic white matter findings. RADIATION DOSE DELIVERED: 641.93mGy.cm Total DLP DATA REPOSITORY: All CT scans at this facility are submitted to the National Radiology Data Registry (NRDR) Dose Index Registry (DIR) with the [employer] (A[employer]). RADIATION OPTIMIZATION: All CT scans at this facility use at least one of these dose optimization te chniques: automated exposure control; mA and/or kV adjustment per patient size (includes targeted exa ms where dose is matched to clinical indication); or iterative reconstruction.
--- NOTE | 2021-10-20 15:15 | DI.MRI_ITS ---
Exam(s) MR BRAIN WO EXAM: MR BRAIN WO CLINICAL HISTORY: headache, esrd, R suprventricular changes on CT TECHNIQUE: Multiplanar multisequence MRI of the brain was performed. COMPARISON: CT CT HEAD WO from 10/20/2021 FINDINGS: CEREBRAL PARENCHYMA: There is no evidence of intracranial hemorrhage, mass effect, or shift of midline structures. There are no extra-axial fluid collections. Ventricles are not enlarged or shifted. There is no significant focal signal abnormality in the cerebellar hemispheres nor within the pennie, m idbrain, and thalami. There is abundant periventricular white matter signal abnormality consistent with chronic small vesse l disease. This is relatively symmetrical, with the exception of confluent signal abnormality right ventricular white, this corresponding to what seen on the recent CT scan but is not associated with t he restricted diffusion on DWI to suggest acute infarct. Also no evidence of hemorrhage/microhemorrh ages on susceptibility weighted imaging. PITUITARY GLAND: No mass nor parasellar abnormality. No obvious abnormality in the cavernous sinuses. FLOW VOIDS: The expected flow void are noted. No evidence of obvious aneurysm nor obvious vascular ma lformation. PARANASAL SINUSES: The visualized paranasal sinuses appear unremarkable. No obvious finding ORBITS: No obvious findings. IMPRESSION: There is abundant bilateral periventricular white matter signal abnormality consistent with chronic s mall vessel disease. However, there is no evidence of acute territorial infarction nor acute lacunar infarct. There is also no evidence of intracranial hemorrhage DATA REPOSITORY:
== END 2021-10-20 17:15 | disposition home or self-care (01) ==
PROVIDERS: Emergency Provider Emergency Medicine; PCP Nurse Practitioner Family
DX: R51.9 Headache, unspecified (principal); I12.0 Hypertensive chronic kidney disease with stage 5 chronic kidney disease or end stage renal disease; N18.6 End stage renal disease; Z99.2 Dependence on renal dialysis; R93.0 Abnormal findings on diagnostic imaging of skull and head, not elsewhere classified
CPT/HCPCS: 36415; 80053; 96374; 99284; 70450; 70551; 85025; J2765

== ENCOUNTER 2021-12-21 11:12 | Outpatient (CLI) | payer MEDICARE, BC, SELFPAY ==
[2021-12-21 12:01] LABS: Calcium 10.4 mg/dL (8.5-10.1)
[2021-12-22 09:37] LABS: Parathyroid Hormone,Intact 142 pg/mL (19-88)
[2021-12-24 15:00] LABS: 1,25-Dihydroxyvitamin D 19 pg/mL (18-78)
== END 2021-12-21 11:13 | disposition home or self-care (01) ==
PROVIDERS: PCP Nurse Practitioner Family; Visit Provider Nurse Practitioner
DX: N18.6 End stage renal disease (principal); E83.52 Hypercalcemia; Z99.2 Dependence on renal dialysis
CPT/HCPCS: 36415; 82306; 82310; 82652; 83970

== ENCOUNTER → 2022-05-22 01:24 | Outpatient (CLI) | payer MEDICARE, BC, SELFPAY ==
--- NOTE | 2022-05-22 07:30 | DI.US_ITS ---
Exam(s) US THYROID EXAM: US THYROID CLINICAL HISTORY: f/u thyroid goiter, e04.2. TECHNIQUE: Ultrasound thyroid performed using standard protocol. COMPARISON: US US THYROID from 04/15/2019 FINDINGS: ISTHMUS: 3 mm RIGHT LOBE: Size: 6.1 x 2.6 x 3.6 cm Echogenicity: Heterogeneous Vascularity: Normal. Nodules: #1: Upper pole nodule measuring 1.1 x 1.2 x 1.1 cm is solid with irregular borders, hypoecho ic, with macrocalcifications. This lesion is questionably taller than wider other there is considera ble shadowing which makes determination of the posterior border difficult. TR 5. Question slightly increased in size versus measurement error. #2: Mid right lobe. 1.4 x 1.4 x 1.3 centimeter smoothly marginated spongiform nodule, TR 1. 3.: There is a nodule at the lower pole of the right lobe which is difficult to visualize. 1.6 x 1.4 x 1.3 cm with irregular borders, mixed cystic and solid, hypoechoic, taller than wide with macrocalc ifications, TR 5. Roughly stable in size. LEFT LOBE: Size: 5.2 x 2.2 x 2.8 cm Echogenicity: Heterogeneous Vascularity: Normal. Nodules: Multiple small cysts and spongiform nodules. Largest 9 millimeters. OTHER FINDINGS: No adenopathy. IMPRESSION: Multinodular thyroid with 2 nodules in the right lobe with a suspicious appearance, TR 5. DATA REPOSITORY:
== END ==
PROVIDERS: PCP Nurse Practitioner Family; Visit Provider Nurse Practitioner Family
DX: E04.2 Nontoxic multinodular goiter (principal)
CPT/HCPCS: 76536

== ENCOUNTER 2022-06-23 01:33 | Outpatient (CLI) | payer MEDICARE, BC, SELFPAY ==
[2022-06-23 16:49] LABS: Calcium 9.8 mg/dL (8.5-10.1)
[2022-06-23 17:22] LABS: Vitamin D 25 Total 59.5 ng/mL (30-100)
[2022-06-26 17:36] LABS: Parathyroid Hormone,Intact 329 pg/mL (19-88)
== END 2022-06-23 01:34 | disposition home or self-care (01) ==
PROVIDERS: PCP Nurse Practitioner Family; Visit Provider Internal Medicine Nephrology
DX: N18.6 End stage renal disease (principal)
CPT/HCPCS: 36415; 82306; 82310; 82652; 83970

== ENCOUNTER 2022-06-26 10:58 | Outpatient (REF) | payer MEDICARE, BC, SELFPAY ==
[2022-06-27 23:10] LABS: COVID-19 RT-PCR UVMMC Result Negative (Negative)
== END 2022-06-26 10:59 | disposition home or self-care (01) ==
LOC: LBN 10:58
PROVIDERS: PCP Nurse Practitioner Family; Visit Provider Nurse Practitioner Family
DX: Z20.822 Contact with and (suspected) exposure to COVID-19 (principal)
CPT/HCPCS: U0003

== ENCOUNTER 2022-10-12 10:59 | Emergency (ER) | payer MEDICARE, BC, SELFPAY ==
[2022-10-12] VITALS (15 sets, daily range): BP systolic 111–151; BP diastolic 50–71; PULSE 64–76; RESP 18–20; TEMP 36.7; O2SAT 92–98
--- NOTE | 2022-10-12 11:15 | DI.RAD_ITS ---
Exam(s) XR PORTABLE CHEST AP EXAM: XR PORTABLE CHEST AP CLINICAL HISTORY: SOB TECHNIQUE: 2D digital imaging was performed. COMPARISON: CR XR CHEST 2V PA LATERAL from 01/10/2021 FINDINGS: Right-sided double-lumen catheter. LUNGS: Large right and moderate left pleural effusion. Adjacent atelectasis. HEART: Normal size. Heart mainly obscured by effusion. AORTA: Normal diameter. BONES: Unremarkable for age. Soft tissues: Unremarkable. IMPRESSION: Bilateral pleural effusions. DATA REPOSITORY: RADIATION DOSE DELIVERED:
--- NOTE | 2022-10-12 11:15 | RT.EKG_ITS ---
APPROVED REPORT Exam: Resting ECG Reason for Exam: sob Patient Location: E HR:70 bpm ECG Measurements Heart Rate 70 AXIS AR 205 P 137 QRSd 78 QRS -12 QT 412 T 121 QTc 445 Conclusion Sinus or ectopic atrial rhythm...P axis (-45,135) Anteroseptal infarct, age indeterminate...Q >35mS, T neg, V1-V2 Abnormal T, consider ischemia, lateral leads...T <-0.20mV, I aVL V5 V6 Borderline ST elevation, lateral leads...ST >0.06mV, I aVL V5 V6. Sinus. Artifact. No STEMI. I have reviewed and interpreted ECG and agree with software generated interpretation.
--- NOTE | 2022-10-12 11:36 | ED.GENADUL_ITS ---
Discharge Plan Disposition Patient Disposition: Home Condition: Stable Discharge Details Clinical Impression: Bilateral pleural effusion Primary Care Provider: Annabel Macdonald ED Provider: Kat Henson Home Meds and New Rx's Prescriptions: Continued amlodipine 10 mg tablet 10 mg PO DAILY Hold Instructions: Changed by Provider tacrolimus 0.5 mg capsule 0.5 - 1 mg PO BID Patient Comments: 2 caps in morning, 1 capsule in evening ascorbic acid (vitamin C) 500 mg capsule 500 mg PO BID Rx Instructions: 1 cap twice a day Vitamin B-12 1,000 mcg/mL drops 1,000 mcg PO DAILY Rx Instructions: 1 dropperful daily clonidine HCl 0.1 mg tablet 0.1 mg PO BID Qty: 60 2RF Rx Instructions: 2 tabs in the morning, one in the evening minoxidil 2.5 mg tablet 2.5 mg PO BID polyethylene glycol 3350 [Miralax] 17 gram/dose powder 17 g PO BID Qty: 510 0RF allopurinol 100 mg Tablet 100 mg PO DAILY aspirin 81 mg Tablet,Delayed Release (Dr/Ec) 81 mg PO DAILY carvedilol 12.5 mg tablet 25 mg PO BID Patient Comments: Take 2 tablet by mouth twice a day losartan 100 mg tablet 100 mg PO BID Patient Comments: Take 1 tablet by mouth twice a day as directed Velphoro 500 mg tablet,chewable 500 mg PO TID Patient Comments: CRUSH OR CHEW AND SWALLOW 1 TABLET 3 TIMES A DAY WITH MEALS Discharge Instructions Additional Instructions: Please go to your dialysis appointment tomorrow, discussed with your cement loader regarding your need for thoracentesis today secondary to a large amount of fluid in your lungs to see if they like to change her schedule at all Please return earlier should you have new or worsening complaints including return of shortness of breath, chest pain, or with any new or worsening complaints Referrals: Annabel Macdonald NP [Primary Care Provider] - Discharge Data Discharge Date/Time-TO BE ENTERED AT DEPARTURE: 10/12/22 16:56 Medical Decision Making <Imani Pedraza NP - Last Filed: 10/17/22 15:34> 62-year-old female with a past medical history of end-stage renal disease, hypertension, anemia, hyperparathyroidism, GERD presents to the ER with a chief complaint of shortness of breath x2 weeks. She is a dialysis patient does not make urine and had her last dialysis yesterday which they pulled off the normal amount of fluid. She does report 2+ pitting edema and swelling to her lower extremities. She is tachypneic upon arrival, she does have diminished lung soun ds bilaterally with rales in the bases. She was sent here from [facility] for further eval. She denies any chest pain she reports cough at night, denies any fever or chills. 1315: Spoke with Dr. Pang regarding chest x-ray and possible thoracentesis for pleural effusions. She verbalized understanding she states that she could come to the ER for the procedure after 3:00. She does recommend consultation with [facility] as we do not do dialysis here if she needs to be admitted. I do suspect some worsening of congestive heart failure due to the edema and fluid overload. This is complicated by patient being in renal failure and not making urine. Her proBNP is greater than 12,000. Patient's O2 sat did drop to 89 to 90% on room air she was placed on 2 L nasal cannula and is satting 94% at this time. We will consult with [facility]. 1318: [facility] transfer center called for transfer request, 1351: Spoke with Dr. Breaux with nephrology at [facility] who is familiar with the patient. She agrees with thoracentesis here first if there is any problems to call her back and they will urgently transfer her for urgent dialysis. She states that if the thoracentesis is successful and the patient feels better then she can go ahead and keep her dialysis appointment tomorrow and they will make sure to dialyze extra fluid off. However if there is a problem or we are unable to get fluid off or relief from this thoracentesis to call them back. 1511: Dr. Pang at bedside for thoracentesis consent provided, supplies at bedside. 1548: 1400 ml of fluid expressed from Thoracentesis, care is to be handed off to oncoming provider Kat BURRELL pending patient re-eval, follow up with [facility] and either transfer to [facility] for urgent dialysis or discharge with plan to keep dialysis appointment tomorrow. Medical Records Medical records reviewed: Yes I reviewed the patient's medical records. Lab Data Lab results reviewed: Yes I reviewed the patient's lab results. Labs: Laboratory Tests Range/Units 10/12/22 10/12/22 10/12/22 11:40 11:40 11:40 WBC (4.4-10.8) 10^3/uL 8.40 RBC (3.93-5.22) 10^6/uL 3.53 L Hgb (11.2-15.7) g/dL 10.2 L Hct (36.0-46.0) % 31.0 L MCV (80-95) fL 88 MCH (27.0-33.0) pg 28.9 MCHC (32.0-36.0) % 32.9 RDW (11.7-14.6) % 14.8 H Plt Count (130-400) 10^3/uL 236 MPV (8.0-11.0) fL 10.6 Immature Gran % 0.4 Neutrophils % 74.4 Lymphocytes % 14.3 Monocytes % 8.3 Eosinophils % 2.4 Basophils % 0.2 Nucleated RBC % (0.0-0.3) % 0.0 Absolute Neutrophils (1.2-6.7) 10^3/uL 6.25 Absolute Lymphocytes (1.2-3.4) 10^3/uL 1.20 Absolute Monocytes (0.1-0.8) 10^3/uL 0.70 Absolute Eosinophils (0.0-0.7) 10^3/uL 0.20 Absolute Basophils (0.0-0.2) 10^3/uL 0.02 VBG pH (7.31-7.41) VBG pCO2 (41-51) mmHg VBG pO2 mmHg VBG HCO3 (23-28) mmol/L VBG Total CO2 (24-29) mmol/L VBG O2 Saturation % VBG Base Excess (-2-3) mmol/L Sodium Cancelled Potassium Cancelled Chloride Cancelled Carbon Dioxide Cancelled Anion Gap Cancelled BUN Cancelled Creatinine Cancelled Est GFR (CKD-EPI 2020) Cancelled Glucose Cancelled Calcium Cancelled Magnesium Cancelled Total Bilirubin Cancelled AST Cancelled ALT Cancelled Alkaline Phosphatase Cancelled Troponin I Cancelled NT-Pro-B Natriuret Pep Cancelled Total Protein Cancelled Albumin Cancelled COVID-19 Source SARS-CoV-2 (PCR) (Negative) Influenza Type A (PCR) (Negative) Influenza Type B (PCR) (Negative) RSV (PCR) (Negative) Range/Units 10/12/22 10/12/22 10/12/22 11:40 12:15 12:15 WBC (4.4-10.8) 10^3/uL RBC (3.93-5.22) 10^6/uL Hgb (11.2-15.7) g/dL Hct (36.0-46.0) % MCV (80-95) fL MCH (27.0-33.0) pg MCHC (32.0-36.0) % RDW (11.7-14.6) % Plt Count (130-400) 10^3/uL MPV (8.0-11.0) fL Immature Gran % Neutrophils % Lymphocytes % Monocytes % Eosinophils % Basophils % Nucleated RBC % (0.0-0.3) % Absolute Neutrophils (1.2-6.7) 10^3/uL Absolute Lymphocytes (1.2-3.4) 10^3/uL Absolute Monocytes (0.1-0.8) 10^3/uL Absolute Eosinophils (0.0-0.7) 10^3/uL Absolute Basophils (0.0-0.2) 10^3/uL VBG pH (7.31-7.41) 7.46 H VBG pCO2 (41-51) mmHg 46 VBG pO2 mmHg 45 VBG HCO3 (23-28) mmol/L 33 H VBG Total CO2 (24-29) mmol/L 31 H VBG O2 Saturation % 84 VBG Base Excess (-2-3) mmol/L 9 H Sodium 136 Potassium 4.3 Chloride 97 L Carbon Dioxide 30.8 Anion Gap 8.2 BUN 42 H Creatinine 6.1 H* Est GFR (CKD-EPI 2020) 7.18 Glucose 120 H Calcium 9.2 Magnesium 2.4 Total Bilirubin 0.3 AST 23 ALT 19 Alkaline Phosphatase 144 H Troponin I < 50 NT-Pro-B Natriuret Pep 19584 H Total Protein 6.9 Albumin 2.4 L COVID-19 Source Nasopharynx SARS-CoV-2 (PCR) (Negative) Negative Influenza Type A (PCR) (Negative) Negative Influenza Type B (PCR) (Negative) Negative RSV (PCR) (Negative) Negative <ASHANTI Hu - Last Filed: 10/12/22 21:28> 62-year-old female with a past medical history of end-stage renal disease, hypertension, anemia, hyperparathyroidism, GERD presents to the ER with a chief complaint of shortness of breath x2 weeks. She is a dialysis patient does not make urine and had her last dialysis yesterday which they pulled off the normal amount of fluid. She does report 2+ pitting edema and swelling to her lower extremities. She is tachypneic upon arrival, she does have diminished lung sounds bilaterally with rales in the bases. She was sent here from [facility] for further eval. She denies any chest pain she reports cough at night, denies any fever or chills. 1315: Spoke with Dr. Pang regarding chest x-ray and possible thoracentesis for pleural effusions. She verbalized understanding she states that she could come to the ER for the procedure after 3:00. She does recommend consultation with [facility] as we do not do dialysis here if she needs to be admitted. I do suspect some worsening of congestive heart failure due to the edema and fluid overload. This is complicated by patient being in renal failure and not making urine. Her proBNP is greater than 12,000. Patient's O2 sat did drop to 89 to 90% on room air she was placed on 2 L nasal cannula and is satting 94% at this time. We will consult with [facility]. 1318: [facility] transfer center called for transfer request, 1351: Spoke with Dr. Breaux with nephrology at [facility] who is familiar with the patient. She agrees with thoracentesis here first if there is any problems to call her back and they will urgently transfer her for urgent dialysis. She states that if the thoracentesis is successful and the patient feels better then she can go ahead and keep her dialysis appointment tomorrow and they will make sure to dialyze extra fluid off. However if there is a problem or we are unable to get fluid off or relief from this thoracentesis to call them back. 1511: Dr. Pang at bedside for thoracentesis consent provided, supplies at bedside. LB: care accepted from Imani Pedraza1548: 1400 ml of fluid expressed from Thoracentesis, care is to be handed off to oncoming provider Kat BURRELL pending patient re-eval, follow up with [facility] and either transfer to [facility] for urgent dialysis or discharge with plan to keep dialysis appointment tomorrow. 1600; Case discussed with Dr. Breaux, cement loader at [facility], recommendation to modify dialysis for tomorrow's treatment and patient reports marked improvement in symptoms, oxygenation post thoracentesis, 95%, no acute distress, does request discharge home HPI <Imani Pedraza NP - Last Filed: 10/17/22 15:34> General Mode of arrival: ambulatory . Date/Time Provider Initiated Documentation: 10/12/22 11:14 . Limitations to Documentation: no limitations . Information obtained by: patient, RN notes reviewed and old records reviewed . HPI Narrative: 62-year-old female with a past medical history of end-stage renal disease, hypertension, anemia, hyperparathyroidism, GERD presents to the ER with a chief complaint of shortness of breath x2 weeks. She is a dialysis patient does not make urine and had her last dialysis yesterday which they pulled off the normal amount of fluid. She does report 2+ pitting edema and swelling to her lower extremities. She is tachypneic upon arrival, she does have diminished lung sounds bilaterally with rales in the bases. She was sent here from [facility] for further eval. She denies any chest pain she reports cough at night, denies any fever or chills. Related Data Home Medications Medication Instructions Recorded Confirmed allopurinol 100 mg tablet 100 mg PO DAILY 02/18/19 10/12/22 aspirin 81 mg tablet,delayed 81 mg PO DAILY 02/19/19 10/12/22 release ascorbic acid (vitamin C) 500 mg 500 mg PO BID 04/24/19 10/12/22 capsule cyanocobalamin (vitamin B-12) 1,000 mcg PO DAILY 04/24/19 10/12/22 1,000 mcg/mL oral drops (Vitamin B-12) tacrolimus 0.5 mg capsule, 0.5 - 1 mg PO BID 04/24/19 10/12/22 immediate-release amlodipine 10 mg tablet 10 mg PO DAILY 07/06/21 10/12/22 carvedilol 12.5 mg tablet 25 mg PO BID 10/20/21 10/12/22 losartan 100 mg tablet 100 mg PO BID 10/20/21 10/12/22 sucroferric oxyhydroxide 500 mg 500 mg PO TID 10/20/21 10/12/22 chewable tablet (Velphoro) clonidine HCl 0.1 mg tablet 0.1 mg PO BID #60 tabs 11/21/21 10/12/22 minoxidil 2.5 mg tablet 2.5 mg PO BID 05/05/22 10/12/22 polyethylene glycol 3350 17 17 g PO BID #510 grams 05/05/22 10/12/22 gram/dose oral powder (Miralax) Previous Rx's Medication Instructions Recorded clonidine HCl 0.1 mg tablet 0.1 mg PO BID #60 tabs 11/21/21 polyethylene glycol 3350 17 17 g PO BID #510 grams 05/05/22 gram/dose oral powder (Miralax) Allergies Allergy/AdvReac Type Severity Reaction Status Date / Time lidocaine Allergy Severe RASH Verified 10/12/22 10:02 lisinopril AdvReac Mild Cough Verified 10/12/22 10:02 milk AdvReac Mild DIARRHEA Verified 10/12/22 10:02 General Stated Complaint: SOB CJ: 2 Review of Systems <Imani Pedraza NP - Last Filed: 10/17/22 15:34> All systems reviewed & are unremarkable except as noted in HPI and below Cardiovascular Cardiovascular: Reports dyspnea Respiratory Respiratory: Reports dyspnea PFSH <Imani Pedraza NP - Last Filed: 10/17/22 15:34> All Active Problems Bilateral pleural effusion (Acute) Pleural effusion in other conditions classified elsewhere (Acute) right fluid overload from renal failure End-stage renal disease (ESRD) (Chronic) Due to hypertensive nephrosclerosis s/p kidney transplant in 2006, failing, back on transplant last. Hemodialysis [facility]. Followed by [facility] Nephro and Transplant Essential hypertension (Chronic) Anemia in chronic kidney disease (CKD) (Chronic) Chronic cough (Chronic) Secondary hyperparathyroidism of renal origin (Chronic) Thrombocytopenia (Chronic) CTM per [facility] Hematology GERD with esophagitis (Chronic) Moderate aortic regurgitation (Chronic) Multinodular goiter (Chronic) [facility] Endocrinology. Repeat thyroid US 2023 Rectocele (Chronic) 2019. Stage3 with Valsalva. Expectant management at this time. Gout (Chronic) Hernia of anterior abdominal wall (Chronic) Medical History Acute pancreatitis H. 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 Colpo VAIN2. CO2 Laser Rx at [facility] GynOnc 2013. Colpo Bx VAIN1. 08/2014. HGSIL. +HPV. 05/2015 Neg Pap 10/2015 ASCUS Pap. 07/2016 ASCUS, 12/2016 ASC-H. 12/2017 Pap Normal 01/2019. Pap normal Surgical History H/O ligation of vein (05/26/21) Ligation of LUE AVF History of section (1986) S/P arteriovenous (AV) fistula creation (~2002) Left arm S/p cadaver renal transplant (10/04/05) S/P exploratory laparotomy (06/10/21) S/P total abdominal hysterectomy (01/16/09) For AUB; ovaries preserved Family History Son No problems noted. Son No problems noted. 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 Pets and animals: No Sexually active: No Do you think of yourself as: straight/heterosexual Current gender identity: male What is your relationship status?: How often do you talk on the phone with friends or family?: once per week How often do you get together with friends or relatives?: twice per week How often do you attend protestant or restoration services?: 1-3 times per year Do you belong to any clubs or organized social groups?: no Panel score (0-1 are the most socially isolated patients): 2 What type of physical activity do you participate in: walking Duration: 15-30 minutes/day Frequency: 1-2 times per week Special jovita needs: No Seatbelt use: always Do you feel safe in your relationship?: Yes Additional Social history: Children: 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 Robert works in [employer] Female Reproductive History Menstrual Menopause type: surgical History History 4 Para 2 Hx # Term Pregnancies Multiple births Hx # Pregnancies Ectopic pregnancies AB induced Hx Number of Living Children 2 AB spontaneous 2 Course <Imani Pedraza NP - Last Filed: 10/17/22 15:34> Vital Signs Vital signs: Vital Signs Temperature 36.7 C 10/12/22 11:16 Pulse 70 10/12/22 11:16 Respiratory Rate 18 10/12/22 11:16 Blood Pressure 116/50 L 10/12/22 11:16 Pulse Oximetry 92 10/12/22 11:16 Temperature 36.7 C 10/12/22 11:16 Temperature Source Skin 10/12/22 11:16 Pulse 70 10/12/22 11:16 Respiratory Rate 18 10/12/22 11:16 Blood Pressure 116/50 L 10/12/22 11:16 Blood Pressure Position Sitting 10/12/22 11:16 Pulse Oximetry 92 10/12/22 11:16 Oxygen Delivery Method Room Air 10/12/22 11:16 Oxygen Flow Rate 0 10/12/22 11:16 Pain Level 0 10/12/22 11:16 Sign Out <Imani Pedraza NP - Last Filed: 10/17/22 15:34> Sign Out Data: Sign Out Comment: Pleural effusion and SOB. S/P Thoracentesis here. Pending Patient re-evaluation, consult with [facility] and either transfer or discharge with planned dialysis tomorrow. Spoke with Dr. Breaux with Nephrology at [facility]. Last updated by Imani Pedraza NP at 10/12/22 15:52
[2022-10-12 11:48] LABS: Abs Immature Grans 0.03 10^3/uL (0.0-0.06); Absolute Basophil Count 0.02 10^3/uL (0.0-0.2); Absolute Neutrophil Count 6.25 10^3/uL (1.2-6.7); Basophils % 0.2; Eosinophils % 2.4; HGB 10.2 g/dL (11.2-15.7); Immature Grans % 0.4; Lymphocytes % 14.3; MCH 28.9 pg (27.0-33.0); MCHC 32.9 % (32.0-36.0); MCV 88 fL (80-95); MPV 10.6 fL (8.0-11.0); Monocytes % 8.3; Neutrophils % 74.4; Platelet Count 236 10^3/uL (130-400); RBC 3.53 10^6/uL (3.93-5.22); RDW 14.8 % (11.7-14.6); RDW-SD 46.9 fL
--- NOTE | 2022-10-12 12:00 | DI.RAD_ITS ---
Exam(s) XR CHEST 2V PA LATERAL EXAM: XR CHEST 2V PA LATERAL CLINICAL HISTORY: Lateral view please TECHNIQUE: 2D digital imaging was performed. COMPARISON: CR XR PORTABLE CHEST AP from 10/12/2022 FINDINGS: A lateral view was performed. HEART: Obscured by effusions. Aorta: Not dilated. PULMONARY VASCULATURE: Normal. LUNGS: Bilateral pleural effusions, right greater than left. Adjacent mild atelectasis. BONE:Unremarkable for age. IMPRESSION: Bilateral pleural effusions, right greater than left. DATA REPOSITORY: RADIATION DOSE DELIVERED:
[2022-10-12 12:19] LABS: BE (Venous) 9 mmol/L (-2-3); HCO3 (Venous) 33 mmol/L (23-28); O2 Sat (Venous) 84 %; TCO2 (Venous) 31 mmol/L (24-29); pCO2 (Venous) 46 mmHg (41-51); pH (Venous) 7.46 (7.31-7.41); pO2 (Venous) 45 mmHg
[2022-10-12] MEDS: methylPREDNISolone SUCC 125 MG VIAL 80 MG IVP (12:22)
[2022-10-12] MEDS: Albuterol/Ipratropium 3 ML UPD VIAL UPD (12:22)
[2022-10-12 12:27] LABS: COVID-19 PCR Negative (Negative); Influenza A PCR Negative (Negative); Influenza B PCR Negative (Negative); RSV PCR Negative (Negative); Source Nasopharynx
[2022-10-12 12:58] LABS: ALT 19 U/L (14-59); AST 23 U/L (15-37); Albumin 2.4 g/dL (3.4-5.0); Alkaline Phosphatase 144 U/L (46-116); Anion Gap 8.2 mmol/L (3-11); BUN 42 mg/dL (7-18); Bilirubin, Total 0.3 mg/dL (0.2-1.0); CO2 30.8 mmol/L (21.0-32.0); Calcium 9.2 mg/dL (8.5-10.1); Chloride 97 mmol/L (98-107); Estimated GFR 7.18 (mL/min/1.73m2); Glucose 120 mg/dL (74-106); Magnesium 2.4 mg/dL (1.8-2.4); NT-proBNP 12001 pg/mL (<300); Potassium 4.3 mmol/L (3.5-5.1); Sodium 136 mmol/L (136-145); Total Protein 6.9 g/dL (6.4-8.2); Troponin I < 50 ng/L (<or=60)
--- NOTE | 2022-10-12 12:59 | NUR.NOTE ---
Nursing Note: Pt O2 sat 91% and pt placed on 2LNC at this time. O2 sat up to 96%
[2022-10-12 13:01] LABS: CREATININE 6.1 mg/dL (0.55-1.02)
[2022-10-12 13:28] LABS: PTT Activated 29.4 sec (21.5-31.9)
--- NOTE | 2022-10-12 14:49 | NUR.NOTE ---
Addendum entered by Amber Dc 10/12/22 14:50: * on 3LNC sat up to 94% Original Note: Nursing Note: Pt resting in bed, O2 sat 91% on 2LNC. O2 increased to 3LNC and sat 945=
--- NOTE | 2022-10-12 15:30 | DI.RAD_ITS ---
Exam(s) XR PORTABLE CHEST AP EXAM: XR PORTABLE CHEST AP CLINICAL HISTORY: s/p thoracentesis TECHNIQUE: 2D digital imaging was performed. COMPARISON: CR XR CHEST 2V PA LATERAL from 10/12/2022 FINDINGS: S/P thoracentesis. Decreased size right pleural effusion. Stable size left pleural effusion. No pn eumothorax. Catheter again noted. IMPRESSION: Decreased size right pleural effusion status post thoracentesis. DATA REPOSITORY: RADIATION DOSE DELIVERED:
--- NOTE | 2022-10-12 15:45 | SCONE_ITS ---
Date of service: 10/12/22 Time of Service: 15:45 Assessment and Plan Assessment and plan (1) Pleural effusion in other conditions classified elsewhere: Status: Acute Assessment and plan: Right thoracentesis will be done. Further disposition per ER Patient is agreeable to the procedure Risks include but not limited to: Bleeding, infection, reaction to local anesthetics, collapsed lung that may require chest tube, recurrence, and other uncontrolled complications. See op report. (2) End-stage renal disease (ESRD): Status: Chronic (3) Essential hypertension: Status: Chronic (4) Anemia in chronic kidney disease (CKD): Status: Chronic (5) Chronic cough: Status: Chronic (6) Secondary hyperparathyroidism of renal origin: Status: Chronic (7) Thrombocytopenia: Status: Chronic (8) GERD with esophagitis: Status: Chronic (9) Moderate aortic regurgitation: Status: Chronic (10) Multinodular goiter: Status: Chronic (11) Rectocele: Status: Chronic (12) Gout: Status: Chronic (13) Hernia of anterior abdominal wall: Status: Chronic History of Present Illness Narrative: Patient presented to the ER today complaining of shortness of breath. She has a long standing history of renal failure failure due to hypertension. She has switched from peritoneal dialysis to hemodialysis. She had her normal dialysis session yesterday. And was fine after that session. Today she woke up feeling very short of breath and with lower extremity edema. Labs and x-rays from today. Patient does have a large pleural effusion today. We can certainly do a thoracentesis . However, she appears fluid overload today. I did have our staff contact her nephrology team so they are aware. And can adjust her dialysis tomorrow. Patient denies ever having a history of CHF or fluid overload in the past. Patient denies any chest pain. She denies any fever chills or cough. There have been no recent changes in her diet or activities, to account for this sudden check fluid status. Patient is not on any blood thinners. She is not on steroids. She denies any recent pulmonary infections. She has never had a thoracentesis done before. Review of Systems All systems reviewed & are unremarkable except as noted in HPI and below PFSH All Active Problems Bilateral pleural effusion (Acute) Pleural effusion in other conditions classified elsewhere (Acute) right fluid overload from renal failure End-stage renal disease (ESRD) (Chronic) Due to hypertensive nephrosclerosis s/p kidney transplant in 2006, failing, back on transplant last. Hemodialysis [facility]. Followed by [facility] Nephro and Transplant Essential hypertension (Chronic) Anemia in chronic kidney disease (CKD) (Chronic) Chronic cough (Chronic) Secondary hyperparathyroidism of renal origin (Chronic) Thrombocytopenia (Chronic) CTM per [facility] Hematology GERD with esophagitis (Chronic) Moderate aortic regurgitation (Chronic) Multinodular goiter (Chronic) [facility] Endocrinology. Repeat thyroid US 2023 Rectocele (Chronic) 2018. Stage3 with Valsalva. Expectant management at this time. Gout (Chronic) Hernia of anterior abdominal wall (Chronic) Medical History Acute pancreatitis H. 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 Colpo VAIN2. CO2 Laser Rx at [facility] GynOnc 2013. Colpo Bx VAIN1. 08/2014. HGSIL. +HPV. 05/2015 Neg Pap 10/2015 ASCUS Pap. 07/2016 ASCUS, 12/2016 ASC-H. 12/2017 Pap Normal 01/2019. Pap normal Surgical History H/O ligation of vein (05/26/21) Ligation of LUE AVF History of section (1986) S/P arteriovenous (AV) fistula creation (~2002) Left arm S/p cadaver renal transplant (10/04/05) S/P exploratory laparotomy (06/10/21) S/P total abdominal hysterectomy (01/16/09) For AUB; ovaries preserved Family History Son No problems noted. Son No problems noted. 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 Pets and animals: No Sexually active: No Do you think of yourself as: straight/heterosexual Current gender identity: male What is your relationship status?: How often do you talk on the phone with friends or family?: once per week How often do you get together with friends or relatives?: twice per week How often do you attend methodist or anabaptist services?: 1-3 times per year Do you belong to any clubs or organized social groups?: no Panel score (0-1 are the most socially isolated patients): 2 What type of physical activity do you participate in: walking Duration: 15-30 minutes/day Frequency: 1-2 times per week Special jovita needs: No Seatbelt use: always Do you feel safe in your relationship?: Yes Additional Social history: Children: 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 Robert works in [employer] Female Reproductive History Menstrual Menopause type: surgical History History 4 Para 2 Hx # Term Pregnancies Multiple births Hx # Pregnancies Ectopic pregnancies AB induced Hx Number of Living Children 2 AB spontaneous 2 Exam Const General: cooperative, comfortable and no acute distress Nutritional Appearance: average body habitus Orientation: alert, awake and oriented x3 Other: PHYSICAL EXAM GENERAL APPEARANCE: Alert, healthy appearance, oriented, x 3,? in no acute distress HEAD, EYES, EARS, NECK, THROAT: Head is normocephalic, pupils equal, round, reactive to light and accommodation, ocular movement intact, sclera clear and no jaundice. NECK: She has a Kamaljit catheter in her right IJ. There is no signs of infection. LUNGS: normal respiration/normal chest excursion.. Decreased breath sounds on right ?HEART: Regular rate and rhythm. no murmurs ABDOMEN: soft and non-tender to palpation.? Normal bowel sounds.? Results Last Vital Signs Temp 36.7 C 10/12/22 11:16 Pulse 64 10/12/22 14:01 Resp 18 10/12/22 11:16 BP 131/61 10/12/22 14:01 Pulse Ox 94 10/12/22 14:01 Labs 10/12/22 11:40 10/12/22 12:15 Labs: Laboratory Results - last 24 hr 10/12/22 10/12/2210/12/23 11:35 11:40 11:40 WBC RBC Hgb Hct MCV MCH MCHC RDW Plt Count MPV Immature Gran % Neutrophils % Lymphocytes % Monocytes % Eosinophils % Basophils % Nucleated RBC % Absolute Neutrophils Absolute Lymphocytes Absolute Monocytes Absolute Eosinophils Absolute Basophils PT 10.0 INR 1.0 APTT 29.4 VBG pH VBG pCO2 VBG pO2 VBG HCO3 VBG Total CO2 VBG O2 Saturation VBG Base Excess Sodium Cancelled Potassium Cancelled Chloride Cancelled Carbon Dioxide Cancelled Anion Gap Cancelled BUN Cancelled Creatinine Cancelled Est GFR (CKD-EPI 2020) Cancelled Glucose Cancelled Calcium Cancelled Magnesium Cancelled Total Bilirubin Cancelled AST Cancelled ALT Cancelled Alkaline Phosphatase Cancelled Troponin I Cancelled NT-Pro-B Natriuret Pep Cancelled Total Protein Cancelled Albumin Cancelled COVID-19 Source SARS-CoV-2 (PCR) Influenza Type A (PCR) Influenza Type B (PCR) RSV (PCR) 10/12/22 10/12/22 10/12/22 11:40 11:40 12:15 WBC 8.40 RBC 3.53 L Hgb 10.2 L Hct 31.0 L MCV 88 MCH 28.9 MCHC 32.9 RDW 14.8 H Plt Count 236 MPV 10.6 Immature Gran % 0.4 Neutrophils % 74.4 Lymphocytes % 14.3 Monocytes % 8.3 Eosinophils % 2.4 Basophils % 0.2 Nucleated RBC % 0.0 Absolute Neutrophils 6.25 Absolute Lymphocytes 1.20 Absolute Monocytes 0.70 Absolute Eosinophils 0.20 Absolute Basophils 0.02 PT INR APTT VBG pH 7.46 H VBG pCO2 46 VBG pO2 45 VBG HCO3 33 H VBG Total CO2 31 H VBG O2 Saturation 84 VBG Base Excess 9 H Sodium Potassium Chloride Carbon Dioxide Anion Gap BUN Creatinine Est GFR (CKD-EPI 2020) Glucose Calcium Magnesium Total Bilirubin AST ALT Alkaline Phosphatase Troponin I NT-Pro-B Natriuret Pep Total Protein Albumin COVID-19 Source Nasopharynx SARS-CoV-2 (PCR) Negative Influenza Type A (PCR) Negative Influenza Type B (PCR) Negative RSV (PCR) Negative 10/12/22 12:15 WBC RBC Hgb Hct MCV MCH MCHC RDW Plt Count MPV Immature Gran % Neutrophils % Lymphocytes % Monocytes % Eosinophils % Basophils % Nucleated RBC % Absolute Neutrophils Absolute Lymphocytes Absolute Monocytes Absolute Eosinophils Absolute Basophils PT INR APTT VBG pH VBG pCO2 VBG pO2 VBG HCO3 VBG Total CO2 VBG O2 Saturation VBG Base Excess Sodium 136 Potassium 4.3 Chloride 97 L Carbon Dioxide 30.8 Anion Gap 8.2 BUN 42 H Creatinine 6.1 H* Est GFR (CKD-EPI 2020) 7.18 Glucose 120 H Calcium 9.2 Magnesium 2.4 Total Bilirubin 0.3 AST 23 ALT 19 Alkaline Phosphatase 144 H Troponin I < 50 NT-Pro-B Natriuret Pep 08999 H Total Protein 6.9 Albumin 2.4 L COVID-19 Source SARS-CoV-2 (PCR) Influenza Type A (PCR) Influenza Type B (PCR) RSV (PCR)
--- NOTE | 2022-10-12 15:49 | ROE_ITS ---
Date of service: 10/12/22 Time of Service: 15:00 Operative Note Operative Note DATE OF PROCEDURE: 10/12/22 PRE-OP DIAGNOSIS: right pleural effusion secondary to fluid overload/HD POST-OP DIAGNOSIS: same PROCEDURE: thorocentisis SURGEON: Radha Pang ANESTHESIA TYPE: Local By Surgeon Refer to Anesthesia Record ESTIMATED BLOOD LOSS: 1 PATHOLOGY: none sent COMPLICATIONS: None Patient was transported to: no change Patient's condition: stable Procedure Description: Pt is here today for thoracentesis for symptoms of shortness of breath.? Chest x-ray was reviewed prior to beginning the procedure.? Informed consent was obtained explaining risks and benefits of the procedure, including but not limited to bleeding, infection, pneumothorax, recurrence, complications of anesthesia, and other unforetold complications. Timeout is performed prior to beginning the procedure. ? PROCEDURE:? The patient is brought to the procedure room and placed in the seated position.? Ultrasound is used to localize the pocket on the right chest.? The area is marked and then prepped and draped in the usual sterile fashion using a ChloraPrep scrub solution.? 10 cc's of 1% Lidocaine is used to anesthetize the T10 interspace. ? The small sebastian is made with a #11 blade.? The needle and catheter is then inserted over the top of the rib, aspirating as it is inserted.? The needle is then removed.? The catheter is then hooked up to the Vacutainer system and 1400 cc's of blood tinged fluid is evacuated.? The catheter is removed; pressure is held.? Sterile compression dressing is applied. cxr: no PTX Pt is given instructions in wound care, activity, medications, and warning signs: SOB, increasing in pain, chest pain, redness or temperature- if these oc cur, come to ED.
--- NOTE | 2022-10-12 17:21 | NUR.NOTE ---
Nursing Note: Patients complete ED visit [facility] for follow up with them tomorrow.
--- NOTE | 2022-10-14 07:15 | NUR.NOTE ---
Nursing Note: Accessed patient chart to determine how many EKG orders were in the chart from the ED. There was an outstanding EKG in ordered status. There are no EKG's in the [facility] system that are outstanding. EKG order was deleted.
== END 2022-10-12 16:56 | disposition home or self-care (01) ==
PROVIDERS: Registered Nurse Emergency; Emergency Provider Physician Assistant; PCP Nurse Practitioner Family
DX: J91.8 Pleural effusion in other conditions classified elsewhere (principal); N18.6 End stage renal disease; I10 Essential (primary) hypertension; N18.9 Chronic kidney disease, unspecified; D63.1 Anemia in chronic kidney disease; R05 Cough; N25.81 Secondary hyperparathyroidism of renal origin; D69.6 Thrombocytopenia, unspecified; K21.0 Gastro-esophageal reflux disease with esophagitis; I35.1 Nonrheumatic aortic (valve) insufficiency; E04.2 Nontoxic multinodular goiter; N81.6 Rectocele; M10.9 Gout, unspecified; K43.9 Ventral hernia without obstruction or gangrene
CPT/HCPCS: 32555; 80053; 82805; 87637; 93005; 99283; 71045; 71046; 83735; 83880; 84484; 85025; 85610; 85730; 93010; J2930; J7620

== ENCOUNTER 2022-10-30 13:09 | Outpatient (CLI) | payer MEDICARE, BC, SELFPAY ==
[2022-10-30 13:38] LABS: NT-proBNP 13771 pg/mL (<300)
[2022-11-02 09:10] LABS: TSH (W/Ref FT4) 1.31 uIU/mL (0.36-3.74)
== END 2022-10-30 13:10 | disposition home or self-care (01) ==
LOC: LBO 13:11
PROVIDERS: PCP Nurse Practitioner Family; Visit Provider Nurse Practitioner Family
DX: R06.02 Shortness of breath (principal); I48.91 Unspecified atrial fibrillation
CPT/HCPCS: 36415; 83880; 84443

== ENCOUNTER 2022-10-30 13:42 | Outpatient (CLI) | payer MEDICARE, BC, SELFPAY ==
--- NOTE | 2022-10-30 12:21 | DI.RAD_ITS ---
Exam(s) XR CHEST 2V PA LATERAL EXAM: XR CHEST 2V PA LATERAL CLINICAL HISTORY: SOB, pleural effusions last month, R06.02 TECHNIQUE: 2D digital imaging was performed of the chest. Two images were obtained. PA and lateral views were obtained. COMPARISON: CR XR CHEST 2V PA LATERAL from 10/12/2022 CR XR PORTABLE CHEST AP from 10/12/2022 FINDINGS: MEDIASTINUM: Normal. HEART: Normal. PULMONARY VASCULATURE: Normal. LUNGS: Clear. PLEURAL SPACE: There has been interval increase in the left pleural effusion which now occupies half of the left hemithorax. There is a small right pleural effusion. BONE:Within normal limits for the patient's age. OTHER FINDINGS:The right central venous catheter is stable in position. IMPRESSION: 1. The left pleural effusion has increased in size occupying half of the left hemithorax. 2. The right pleural effusion is small and has decreased in size. DATA REPOSITORY: RADIATION DOSE DELIVERED:
== END 2022-10-30 14:02 ==
LOC: DI 13:43
PROVIDERS: PCP Nurse Practitioner Family; Visit Provider Nurse Practitioner Family
DX: R06.02 Shortness of breath (principal)
CPT/HCPCS: 71046

== ENCOUNTER 2022-10-30 20:52 | Emergency (ER) | payer MEDICARE, BC, SELFPAY ==
[2022-10-30] VITALS (42 sets, daily range): BP systolic 57–101; BP diastolic 31–57; PULSE 76–162; RESP 20–40; TEMP 36.9; O2SAT 91–96
--- NOTE | 2022-10-30 20:45 | RT.EKG_ITS ---
APPROVED REPORT Exam: Resting ECG Reason for Exam: dizziness Patient Location: E HR:144 bpm ECG Measurements Heart Rate 144 AXIS WA [id number] P [id number] QRSd 79 QRS -10 QT 303 T 120 QTc 470 Conclusion Atrial fibrillation...? atrial activity LVH with secondary repolarization abnormality...multi-LVH criteria, abnrm ST-T afib RVR left axis
--- NOTE | 2022-10-30 21:45 | DI.RAD_ITS ---
Exam(s) XR PORTABLE CHEST AP EXAM: XR PORTABLE CHEST AP CLINICAL HISTORY: SOB. TECHNIQUE: 2D digital imaging was performed. COMPARISON: CR XR PORTABLE CHEST AP from 10/12/2022 CR,XR XR PORTABLE CHEST AP from 10/30/2022 CR XR CHEST 2V PA LATERAL from 10/30/2022 FINDINGS: Single AP portable view. There is a large left pleural effusion, significantly increased in size from 10/12/2022. There is a small right pleural effusion. Distal tip of the right supra clavi in dialysis catheter is at the SVC -RA junction. Cardiomegaly again noted. Mediastinum not widened. Volume loss in the left lung subjacent to the left pleural effusion. IMPRESSION: Large left pleural effusion. Small right pleural effusion. DATA REPOSITORY: RADIATION DOSE DELIVERED:
--- NOTE | 2022-10-30 21:57 | ED.GENADUL_ITS ---
Discharge Plan Disposition Patient Disposition: Home Condition: Stable Discharge Details Clinical Impression: Atrial fibrillation with RVR Primary Care Provider: Annabel Macdonald ED Provider: Sánchez Narayanan Home Meds and New Rx's Prescriptions: Continued tacrolimus 0.5 mg capsule 0.5 - 1 mg PO BID Patient Comments: 2 caps in morning, 1 capsule in evening ascorbic acid (vitamin C) 500 mg capsule 500 mg PO BID Rx Instructions: 1 cap twice a day Vitamin B-12 1,000 mcg/mL drops 1,000 mcg PO DAILY Rx Instructions: 1 dropperful daily clonidine HCl 0.1 mg tablet 0.1 mg PO BID Qty: 60 2RF Rx Instructions: 2 tabs in the morning, one in the evening minoxidil 2.5 mg tablet 2.5 mg PO BID polyethylene glycol 3350 [Miralax] 17 gram/dose powder 17 g PO BID Qty: 510 0RF allopurinol 100 mg Tablet 100 mg PO DAILY aspirin 81 mg Tablet,Delayed Release (Dr/Ec) 81 mg PO DAILY carvedilol 12.5 mg tablet 25 mg PO BID Patient Comments: Take 2 tablet by mouth twice a day losartan 100 mg tablet 100 mg PO BID Patient Comments: Take 1 tablet by mouth twice a day as directed Velphoro 500 mg tablet,chewable 500 mg PO TID Patient Comments: CRUSH OR CHEW AND SWALLOW 1 TABLET 3 TIMES A DAY WITH MEALS No Action amlodipine 10 mg tablet 10 mg PO DAILY Hold Instructions: Changed by Provider Discharge Instructions Instructions: A-fib (Atrial Fibrillation) (ED) Additional Instructions: you were in atrial fibrillation but this converted back to a normal sinus rhythm I'd recommend discussing with your remediation bioanalytics consultant and primary care provider trying to take you off some of your blood pressure medications especially if your blood pressure remains low. I'd recommend holding your amlodipine for now until you see your primary care provider discuss with your primary care provider if you should be on a blood thinner since you had an episode of atrial fibrillation if you feel more ill, have severe pain or difficulty breathing return to the emergency department Discharge Data Discharge Date/Time-TO BE ENTERED AT DEPARTURE: 10/31/22 06:09 Medical Decision Making <Imani Pedraza NP - Last Filed: 10/31/22 16:56> 62-year-old female past medical history of stage IV kidney disease who is a dialysis patient who had dialysis today presents to the ER with heart racing, shortness of breath and dizziness which began around 7 PM tonight. Patient was seen here in the ER approximately 3 weeks ago and had a right-sided thoracentesis done for pleural effusion. Patient had x-ray and proBNP done today which was ordered by her PCP which showed left sided pleural effusion. Patient does have 2+ pitting edema to her bilateral lower extremities. She is slightly hypotensive upon arrival with blood pressure of 86 systolic. EKG was reviewed by Dr. Paul ER attending, Old EKG available for review. Patient is in Atrial fibrillation which she does not have a history of. Cardiac work-up ordered, chest x-ray ordered, did discuss patient case with ER doctor. He will ultrasound patient's lungs at my my request. Will consult surgery for additional thoracentesis. CBC shows no leukocytosis hemoglobin 9.5 hematocrit 29.5, BUN 31 creatinine 5.4 alk phos 203 albumin 2.5 troponin 53 2220: Surgery paged 0.25 mg of digoxin IV ordered for rate control. This was chosen over diltiazem or metoprolol due to patient's blood pressure, her blood pressure at this time is 81/50. Blood pressure reading of 67/50, repeat 95/56, Dr. Nicole Edgar at bedside. We will hold off on the digoxin at this time. Dr. Gonzalez states that he may attempt a bedside thoracentesis due to patient's condition. I did speak with Dr. Pitts who is requesting that Dr. Nicole Edgar do the thoracentesis if he is able. Dr. Gonzalez verbalized understanding and is in agreement to performing procedure. Dr. Gonzalez at bedside performing thoracentesis. Please see his procedure note. Patient tolerated well he was able to extract proximately 1250 cc of dark clear fluid. Cell count and differential ordered and albumin 25% at Dr. Gonzalez's recommendation. Patient remained alert and oriented throughout procedure. Blood pressure is still very low at 71 systolic heart rate is 130. I did instruct temporary staff accountant to give the digoxin very slowly. I instructed to give half and wait for result. They verbalized understanding. Care is to be handed off to Dr. Narayanan ER doctor for reevaluation and disposition. I did discuss patient case in details with him he verbalizes understanding. PT signed out to me, Dr. Narayanan, s/p thoracentesis. She was in afib with rates of 120-130 and then spontaneously converted to sinus rhythm. She is feeling well s/p thoracentesis, delta troponin pending pt asymptomatic, still in sinus, second troponin minimally increased to 73 likely secondary to being in afib with rvr earlier. No concerning findings on bedside pocus, [place] [facility] [place]. Patient declines to be transferred elsewhere, will [facility] patient [facility], pt still in sinu, bp 98/62, she is on quite a lot of antihypertensives and suspect she could be over medicated somewhat. She is asymptomatic now. She declines to be transferred elsewhere and requests D/c. I discussed with her at length reasoning for transfer and taht we can't admit dialysis patient's here. Pt doesn't wish to be transferred elsewhere. She has clinical decision making capacity and understands risks of leaving including potential and disability. She is willing to accept these risks and is leaving against medical advise. She understands importance of prompt follow up with her pcp and remediation bioanalytics consultant. She understands she can return at any time if she changes her mind or if she worsens in any way. Medical Records Medical records reviewed: Yes I reviewed the patient's medical records. Lab Data Lab results reviewed: Yes I reviewed the patient's lab results. Labs: Laboratory Tests Range/Units 10/30/22 10/30/22 10/30/22 21:51 21:51 21:51 WBC (4.4-10.8) 10^3/uL 8.81 RBC (3.93-5.22) 10^6/uL 3.24 L Hgb (11.2-15.7) g/dL 9.5 L Hct (36.0-46.0) % 29.5 L MCV (80-95) fL 91 MCH (27.0-33.0) pg 29.3 MCHC (32.0-36.0) % 32.2 RDW (11.7-14.6) % 17.4 H Plt Count (130-400) 10^3/uL 220 MPV (8.0-11.0) fL 11.0 Immature Gran % 0.3 Neutrophils % 74.1 Lymphocytes % 15.1 Monocytes % 8.7 Eosinophils % 1.5 Basophils % 0.3 Nucleated RBC % (0.0-0.3) % 0.7 H Absolute Neutrophils (1.2-6.7) 10^3/uL 6.52 Absolute Lymphocytes (1.2-3.4) 10^3/uL 1.33 Absolute Monocytes (0.1-0.8) 10^3/uL 0.77 Absolute Eosinophils (0.0-0.7) 10^3/uL 0.13 Absolute Basophils (0.0-0.2) 10^3/uL 0.03 PT (9.3-11.0) sec INR (0.9-1.1) Sodium (136-145) mmol/L 138 Potassium (3.5-5.1) mmol/L 4.7 Chloride (98-107) mmol/L 98 Carbon Dioxide (21.0-32.0) mmol/L 33.1 H Anion Gap (3-11) mmol/L 6.9 BUN (7-18) mg/dL 31 H Creatinine (0.55-1.02) mg/dL 5.4 H* Est GFR (CKD-EPI 2020) (mL/min/1.73m2) 8.31 Glucose (74-106) mg/dL 131 H Calcium (8.5-10.1) mg/dL 8.8 Magnesium (1.8-2.4) mg/dL 2.3 Total Bilirubin (0.2-1.0) mg/dL 0.5 AST (15-37) U/L 36 ALT (14-59) U/L 28 Alkaline Phosphatase (46-116) U/L 203 H Troponin I (<or=60) ng/L 53 Total Protein (6.4-8.2) g/dL 7.6 Albumin (3.4-5.0) g/dL 2.5 L Range/Units 10/30/22 22:52 WBC (4.4-10.8) 10^3/uL RBC (3.93-5.22) 10^6/uL Hgb (11.2-15.7) g/dL Hct (36.0-46.0) % MCV (80-95) fL MCH (27.0-33.0) pg MCHC (32.0-36.0) % RDW (11.7-14.6) % Plt Count (130-400) 10^3/uL MPV (8.0-11.0) fL Immature Gran % Neutrophils % Lymphocytes % Monocytes % Eosinophils % Basophils % Nucleated RBC % (0.0-0.3) % Absolute Neutrophils (1.2-6.7) 10^3/uL Absolute Lymphocytes (1.2-3.4) 10^3/uL Absolute Monocytes (0.1-0.8) 10^3/uL Absolute Eosinophils (0.0-0.7) 10^3/uL Absolute Basophils (0.0-0.2) 10^3/uL PT (9.3-11.0) sec 10.0 INR (0.9-1.1) 1.0 Sodium (136-145) mmol/L Potassium (3.5-5.1) mmol/L Chloride (98-107) mmol/L Carbon Dioxide (21.0-32.0) mmol/L Anion Gap (3-11) mmol/L BUN (7-18) mg/dL Creatinine (0.55-1.02) mg/dL Est GFR (CKD-EPI 2020) (mL/min/1.73m2) Glucose (74-106) mg/dL Calcium (8.5-10.1) mg/dL Magnesium (1.8-2.4) mg/dL Total Bilirubin (0.2-1.0) mg/dL AST (15-37) U/L ALT (14-59) U/L Alkaline Phosphatase (46-116) U/L Troponin I (<or=60) ng/L Total Protein (6.4-8.2) g/dL Albumin (3.4-5.0) g/dL <Sánchez Narayanan MD - Last Filed: 11/01/22 03:28> 62-year-old female past medical history of stage IV kidney disease who is a dialysis patient who had dialysis today presents to the ER with heart racing, shortness of breath and dizziness which began around 7 PM tonight. Patient was seen here in the ER approximately 3 weeks ago and had a right-sided thoracentesis done for pleural effusion. Patient had x-ray and proBNP done today which was ordered by her PCP which showed left sided pleural effusion. Patient does have 2+ pitting edema to her bilateral lower extremities. She is slightly hypotensive upon arrival with blood pressure of 86 systolic. EKG was reviewed by Dr. Paul ER attending, Old EKG available for review. Patient is in Atrial fibrillation which she does not have a history of. Cardiac work-up ordered, chest x-ray ordered, did discuss patient case with ER doctor. He will ultrasound patient's lungs at my my request. Will consult surgery for additional thoracentesis. CBC shows no leukocytosis hemoglobin 9.5 hematocrit 29.5, BUN 31 creatinine 5.4 alk phos 203 albumin 2.5 troponin 53 2220: Surgery paged 0.25 mg of digoxin IV ordered for rate control. This was chosen over diltiazem or metoprolol due to patient's blood pressure, her blood pressure at this time is 81/50. Blood pressure reading of 67/50, repeat 95/56, Dr. Nicole Edgar at bedside. We will hold off on the digoxin at this time. Dr. Gonzalez states that he may attempt a bedside thoracentesis due to patient's condition. I did speak with Dr. Pitts who is requesting that Dr. Nicole Edgar do the thoracentesis if he is able. Dr. Gonzalez verbalized understanding and is in agreement to performing procedure. Dr. Gonzalez at bedside performing thoracentesis. Please see his procedure note. Patient tolerated well he was able to extract proximately 1250 cc of dark clear fluid. Cell count and differential ordered and albumin 25% at Dr. Gonzalez's recommendation. Patient remained alert and oriented throughout procedure. Blood pressure is still very low at 71 systolic heart rate is 130. I did instruct temporary staff accountant to give the digoxin very slowly. I instructed to give half and wait for result. They verbalized understanding. Care is to be handed off to Dr. Narayanan ER doctor for reevaluation and disposition. I did discuss patient case in details with him he verbalizes understanding. PT signed out to me, Dr. Narayanan, s/p thoracentesis. She was in afib with rates of 120-130 and then spontaneously converted to sinus rhythm. She is feeling well s/p thoracentesis, delta troponin pending pt asymptomatic, still in sinus, second troponin minimally increased to 73 lik madhuri secondary to being in afib with rvr earlier. No concerning findings on bedside pocus, [place] [facility] [place]. Patient declines to be transferred elsewhere, will [facility] in case patient changes her mind [facility] at capacity, pt still in sinu, bp 98/62, she is on quite a lot of antihypertensives and suspect she could be over medicated somewhat. She is asymp tomatic now. She declines to be transferred elsewhere and requests D/c. I discussed with her at length reasoning for transfer and taht we can't admit dialysis patient's here. Pt doesn't wish to be transferred elsewhere. She has clinical decision making capacity and understands risks of leaving including potential and disability. She is willing to accept these risks and is leaving against medical advise. She understands importance of prompt follow up with her pcp and remediation bioanalytics consultant. She understands she can return at any time if she changes her mind or if she worsens in any way. Imaging Data Radiologic Study: Attestation: I personally reviewed and interpreted this imaging study as follows: Imaging: X-Ray Radiologist's impression: PROCEDURE INFORMATION: Exam: XR Chest Exam date and time: 10/31/2022 3:59 AM Age: 62 years old Clinical indication: Other: Chest pain TECHNIQUE: Imaging protocol: Radiologic exam of the chest. Views: 1 view. COMPARISON: XR PORTABLE CHEST AP 10/30/2022 11:59 PM FINDINGS: Tubes, catheters and devices: There is a large-bore central venous catheter in-situ terminating near the cavoatrial junction. Lungs: There is hazy opacity projecting over the mid-lower lung zones. Pleural spaces: There appear to be small pleural effusions. Heart/Mediastinum: The heart appears enlarged. There is atherosclerotic calcification at the apex of the aortic arch. Bones/joints: The visualized bony structures appear grossly intact, as seen. IMPRESSION: 1. Small bilateral pleural effusions. 2. Hazy opacity projecting over the mid-lower lung zones. Alveolar pulmonary edema is suspected. An artifactual appearance created by layering pleural fluid in a recumbent patient could perhaps mimic this appearance. Aspiration could probably also produce this appearance ECG Data Attestation: I personally reviewed and interpreted this ECG (s) as follows: Prior ECG tracings: available for review Interpretation: ekg at 01:46 on 10/31 sinus, rate of 73, pr 162, no stemi, lvh HPI <Imani Pedraza NP - Last Filed: 10/31/22 16:56> General Mode of arrival: ambulatory . Date/Time Provider Initiated Documentation: 10/30/22 20:53 . Limitations to Documentation: no limitations . Information obtained by: patient, RN notes reviewed and old records reviewed . HPI Narrative: 62-year-old female past medical history of stage IV kidney disease who is a dialysis patient who had dialysis today presents to the ER with heart racing, shortness of breath and dizziness which began around 7 PM tonight. Patient was seen here in the ER approximately 3 weeks ago and had a right-sided thoracentesis done for pleural effusion. Patient had x-ray and proBNP done today which was ordered by her PCP which showed left sided pleural effusion. Patient does have 2+ pitting edema to her bilateral lower extremities. She is slightly hypotensive upon arrival with blood pressure of 86 systolic. Related Data Home Medications Medication Instructions Recorded Confirmed allopurinol 100 mg tablet 100 mg PO DAILY 02/18/19 10/30/22 aspirin 81 mg tablet,delayed 81 mg PO DAILY 02/19/19 10/30/22 release ascorbic acid (vitamin C) 500 mg 500 mg PO BID 04/24/19 10/30/22 capsule cyanocobalamin (vitamin B-12) 1,000 mcg PO DAILY 04/24/19 10/30/22 1,000 mcg/mL oral drops (Vitamin B-12) tacrolimus 0.5 mg capsule, 0.5 - 1 mg PO BID 04/24/19 10/30/22 immediate-release amlodipine 10 mg tablet 10 mg PO DAILY 07/06/21 10/30/22 carvedilol 12.5 mg tablet 25 mg PO BID 10/20/21 10/30/22 losartan 100 mg tablet 100 mg PO BID 10/20/21 10/30/22 sucroferric oxyhydroxide 500 mg 500 mg PO TID 10/20/21 10/30/22 chewable tablet (Velphoro) clonidine HCl 0.1 mg tablet 0.1 mg PO BID #60 tabs 11/21/21 10/30/22 minoxidil 2.5 mg tablet 2.5 mg PO BID 05/05/22 10/30/22 polyethylene glycol 3350 17 17 g PO BID #510 grams 05/05/22 10/30/22 gram/dose oral powder (Miralax) Previous Rx's Medication Instructions Recorded clonidine HCl 0.1 mg tablet 0.1 mg PO BID #60 tabs 11/21/21 polyethylene glycol 3350 17 17 g PO BID #510 grams 05/05/22 gram/dose oral powder (Miralax) Allergies Allergy/AdvReac Type Severity Reaction Status Date / Time lidocaine Allergy Severe RASH Verified 10/30/22 11:36 lisinopril AdvReac Mild Cough Verified 10/30/22 11:36 milk AdvReac Mild DIARRHEA Verified 10/30/22 11:36 General Stated Complaint: Chest Pain CJ: 3 Review of Systems <Imani Pedraza NP - Last Filed: 10/31/22 16:56> All systems reviewed & are unremarkable except as noted in HPI and below ENT Ears, Nose, Mouth, and Throat: Reports dizziness Cardiovascular Cardiovascular: Reports rapid heart rate, Reports pedal edema and Reports dyspnea Respiratory Respiratory: Reports dyspnea Neurologic Neurologic: Reports dizziness PFSH <Imani Pedraza NP - Last Filed: 10/31/22 16:56> All Active Problems (Updated 10/31/22 @ 05:22 by Sánchez Narayanan MD) Bilateral pleural effusion (Acute) Atrial fibrillation with RVR (Acute) Pleural effusion in other conditions classified elsewhere (Acute) right fluid overload from renal failure End-stage renal disease (ESRD) (Chronic) Due to hypertensive nephrosclerosis s/p kidney transplant in 2005, failing, back on transplant last. Hemodialysis [facility]Sa. Followed by [facility] [place] Nephro and Transplant Essential hypertension (Chronic) Anemia in chronic kidney disease (CKD) (Chronic) Chronic cough (Chronic) Secondary hyperparathyroidism of renal origin (Chronic) Thrombocytopenia (Chronic) CTM per [facility] [place] Hematology GERD with esophagitis (Chronic) Moderate aortic regurgitation (Chronic) Multinodular goiter (Chronic) [facility] [place] Endocrinology. Repeat thyroid US 2023 Rectocele (Chronic) 2019. Stage3 with Valsalva. Expectant management at this time. Gout (Chronic) Hernia of anterior abdominal wall (Chronic) Medical History Acute pancreatitis H. 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 Colpo VAIN2. CO2 Laser Rx at [facility] [place] GynOnc 2013. Colpo Bx VAIN1. 08/2014. HGSIL. +HPV. 05/2015 Neg Pap 10/2015 ASCUS Pap. 07/2016 ASCUS, 12/2016 ASC-H. 12/2017 Pap Normal 01/2019. Pap normal Surgical History H/O ligation of vein (05/26/21) Ligation of LUE AVF History of section (1986) S/P arteriovenous (AV) fistula creation (~2002) Left arm S/p cadaver renal transplant (10/04/05) S/P exploratory laparotomy (06/10/21) S/P total abdominal hysterectomy (01/16/09) For AUB; ovaries preserved Family History Son No problems noted. Son No problems noted. 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 Pets and animals: No Sexually active: No Do you think of yourself as: straight/heterosexual Current gender identity: male What is your relationship status?: How often do you talk on the phone with friends or family?: once per week How often do you get together with friends or relatives?: twice per week How often do you attend anabaptism or caodaism services?: 1-3 times per year Do you belong to any clubs or organized social groups?: no Panel score (0-1 are the most socially isolated patients): 2 What type of physical activity do you participate in: walking Duration: 15-30 minutes/day Frequency: 1-2 times per week Special jovita needs: No Seatbelt use: always Do you feel safe at home: Yes Do you feel safe in your relationship?: Yes Additional Social history: Children: 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 Robert works in [email or web address] Female Reproductive History Menstrual Menopause type: surgical History History 4 Para 2 Hx # Term Pregnancies Multiple births Hx # Pregnancies Ectopic pregnancies AB induced Hx Number of Living Children 2 AB spontaneous 2 Exam <Imani Pedraza NP - Last Filed: 10/31/22 16:56> Narrative Exam Narrative: Constitutional: Alert and oriented x3. Appears stated age. Normal body habitus. Appears chronically ill. Head: Normocephalic, no trauma. Eyes: Pupils PERRL, Red reflex noted, EOM's intact. Eyelids symmetrical without lesions, discharge, or swelling. ENT: Bilateral TM's WNL, External ear normal to inspection, no mastoid TTP, swelling, or erythema, Nasal turbinates WNL, no nasal discharge. Normal dentition, Posterior pharynx WNL, no exudate. Chest: Patient is tachycardic at a rate of 140 irregular atrial fibrillation., Normal S1, S2, distal pulses intact. Resp: Lungs diminished, Abdomen: Soft, non-distended, Normoactive bowel sounds all 4 quads. Musculoskeletal: Normal gait, 5/5 strength to all four extremities. Skin: No suspicious rashes or lesions. Capillary refill less than 2 sec. Neurologic: Cranial nerves II-XII intact. Alert and oriented x 3. Motor: No deficits noted. Sensory: Intact bilaterally all 4 extremities. Reflexes: DTR's intact bilaterally.. Hematologic/Lymphatic: No ecchymosis, no lymphadenopathy. Course <Imani Pedraza NP - Last Filed: 10/31/22 16:56> Vital Signs Vital signs: Vital Signs Temperature 36.9 C 10/30/22 20:57 Pulse 101 H 10/30/22 20:57 Respiratory Rate 22 10/30/22 20:57 Blood Pressure 93/41 L 10/30/22 20:57 Pulse Oximetry 95 10/30/22 20:57 Temperature 36.9 C 10/30/22 20:57 Temperature Source Oral 10/30/22 20:57 Pulse 101 H 10/30/22 20:57 Respiratory Rate 22 10/30/22 20:57 Blood Pressure 93/41 L 10/30/22 20:57 Blood Pressure Position Sitting 10/30/22 20:57 Pulse Oximetry 95 10/30/22 20:57 Oxygen Delivery Method Room Air 10/30/22 20:57 Oxygen Flow Rate 0 10/30/22 20:57 Pain Level 0 10/30/22 20:57 <Sánchez Narayanan MD - Last Filed: 11/01/22 03:28> Limited Cardiac Exam DATE OF EXAM: 10/31/22 TIME OF EXAM: 02:55 PROVIDER THAT PERFORMED THE STUDY: Sánchez Narayanan REASON FOR EXAM: Chest pain VISUALIZED STRUCTURES: Left ventricle and Right ventricle VIEW OBTAINED: Parasternal long-axis PERTINENT FINDINGS/IMPRESSION: No LV dysfunction, No pericardial effusion and No RV dilation Exam complete Sign Out <Imani Pedraza NP - Last Filed: 10/31/22 16:56> Sign Out Data: Sign Out Comment: 62 yr old dialysis patient. Had Dialysis today. At 7pm began with SOB, and racing heart rate. Pending Re-evaluation and possible transfer to [facility] [place]. S/P thoracentesis. 0.25mg Digoxin ordered and 25% Albumin ordered. Last updated by Imani Pedraza NP at 10/30/22 23:54
[2022-10-30 22:09] LABS: Abs Immature Grans 0.03 10^3/uL (0.0-0.06); Absolute Basophil Count 0.03 10^3/uL (0.0-0.2); Absolute Eosinophil Count 0.13 10^3/uL (0.0-0.7); Absolute Lymphocyte Count 1.33 10^3/uL (1.2-3.4); Absolute Monocyte Count 0.77 10^3/uL (0.1-0.8); Absolute Neutrophil Count 6.52 10^3/uL (1.2-6.7); Basophils % 0.3; Eosinophils % 1.5; HCT 29.5 % (36.0-46.0); HGB 9.5 g/dL (11.2-15.7); Immature Grans % 0.3; Lymphocytes % 15.1; MCH 29.3 pg (27.0-33.0); MCHC 32.2 % (32.0-36.0); MCV 91 fL (80-95); Monocytes % 8.7; Neutrophils % 74.1; Nucleated RBC 0.7 % (0.0-0.3); Platelet Count 220 10^3/uL (130-400); RBC 3.24 10^6/uL (3.93-5.22); RDW 17.4 % (11.7-14.6); RDW-SD 54.9 fL; WBC 8.81 10^3/uL (4.4-10.8)
[2022-10-30 22:26] LABS: ALT 28 U/L (14-59); AST 36 U/L (15-37); Albumin 2.5 g/dL (3.4-5.0); Alkaline Phosphatase 203 U/L (46-116); Anion Gap 6.9 mmol/L (3-11); BUN 31 mg/dL (7-18); Bilirubin, Total 0.5 mg/dL (0.2-1.0); CO2 33.1 mmol/L (21.0-32.0); Calcium 8.8 mg/dL (8.5-10.1); Chloride 98 mmol/L (98-107); Estimated GFR 8.31 (mL/min/1.73m2); Glucose 131 mg/dL (74-106); Magnesium 2.3 mg/dL (1.8-2.4); Potassium 4.7 mmol/L (3.5-5.1); Sodium 138 mmol/L (136-145); Total Protein 7.6 g/dL (6.4-8.2)
[2022-10-30 22:28] LABS: CREATININE 5.4 mg/dL (0.55-1.02); Troponin I 53 ng/L (<or=60)
--- NOTE | 2022-10-30 22:30 | RT.EKG_ITS ---
APPROVED REPORT Exam: Resting ECG Reason for Exam: rapid heart rate Patient Location: E HR:73 bpm ECG Measurements Heart Rate 73 AXIS ID 162 P 46 QRSd 81 QRS -14 QT 387 T 45 QTc 426 Conclusion Sinus rhythm...normal P axis, V-rate 60- 99 Probable left ventricular hypertrophy...multiple LVH criteria
--- NOTE | 2022-10-30 23:09 | NUR.NOTE ---
Nursing Note: Dr. Paul at bedside with ultrasound for reevaluation of SOB and prepping for thoracentesis.
--- NOTE | 2022-10-30 23:13 | NUR.NOTE ---
Nursing Note: Consent obtained from patient for thoracentesis
--- NOTE | 2022-10-30 23:18 | NUR.NOTE ---
Nursing Note: Dr. Paul at bedside to perform thoracentesis. Pt on monitor x3
--- NOTE | 2022-10-30 23:41 | DI.VRAD_ITS ---
PROCEDURE INFORMATION: Exam: XR Chest Exam date and time: 10/30/2022 10:26 PM Age: 62 years old Clinical indication: Shortness of breath TECHNIQUE: Imaging protocol: Radiologic exam of the chest. Views: 1 view. COMPARISON: CR XR CHEST 2V PA LATERAL 10/30/2022 12:19 PM FINDINGS: Tubes, catheters and devices: A right central catheter is seen with the inferior tip along the atrial-caval junction, unchanged. Lungs: Volume loss with consolidation throughout the left upper lobe, lingula and left lower lobe, similar when compared to the prior study. Mild passive atelectasis or infiltrate within the right lung base. Pleural spaces: Moderate size left-sided pleural effusion, similar when compared to the prior study. Small right-sided pleural effusion. Heart/Mediastinum: The cardiac silhouette is moderately enlarged. Bones/joints: No acute osseous abnormality. IMPRESSION: 1. Moderate size left-sided pleural effusion with volume loss and consolidation throughout the left lung, unchanged. 2. Small right-sided pleural effusion with passive atelectasis or infiltrate within the right lung base, unchanged. Dictated and Authenticated by: Jennifer Lin MD. Ordering:OLEG Diallo MD
--- NOTE | 2022-10-30 23:44 | NUR.NOTE ---
Nursing Note: thoracentesis performed by Dr. Paul. 1250ml fluid removed
--- NOTE | 2022-10-30 23:45 | DI.RAD_ITS ---
Exam(s) XR PORTABLE CHEST AP EXAM: XR PORTABLE CHEST AP CLINICAL HISTORY: post thoracentis left side. TECHNIQUE: 2D digital imaging was performed. COMPARISON: CR,XR XR PORTABLE CHEST AP from 10/30/2022 FINDINGS: Single AP portable view. On this post thoracentesis image there has been significant decrease in the size of the large left pl eural effusion. Mild increased markings in the left lung base are noted. No pneumothorax small righ t pleural effusion again noted. Cardiomegaly. Mediastinum not widened. Distal tip of the dialysis catheters at SVC-RA junction. IMPRESSION: Significant decrease in size of left pleural effusion evident on this post thoracentesis image. Ther e is no pneumothorax. DATA REPOSITORY: RADIATION DOSE DELIVERED:
--- NOTE | 2022-10-30 23:47 | PROC.BLANK_ITS ---
Date of service: 10/30/22 Time of Service: 23:48 Procedures Other Description: 23: 45 thoracentesis performed at bedside urgently due to hypotension and tachycardia in the setting of A-fib RVR. Chronic recurrent pleural effusions left greater than right. Patient consented. Ultrasound guidance used to find a largest pocket in left thoracic cavity. 1% lidocaine approximately 3 to 4 cc instilled above rib at intercostal space, 11 blade used to make a small sebastian in skin, catheter advanced after obtaining pleural fluid flush, manual twoway valve bag technique used to remove 1250 cc of dark serous pleural fluid. Patient tolerated procedure. No desaturation no change in hemodynamic status at this time. 4-0 Vicryl simple interrupted suture used to close skin incision, Band- Aid occlusion applied to thoracic wall
[2022-10-30] MEDS: Digoxin 0.5 MG/2 ML AMP 0.25 MG IVP (23:48)
[2022-10-31] VITALS (126 sets, daily range): BP systolic 66–111; BP diastolic 32–77; PULSE 68–153; RESP 15–47; TEMP 36.8; O2SAT 91–100
--- NOTE | 2022-10-31 00:09 | DI.VRAD_ITS ---
Addendum created by Jennifer Lin MD on 10/31/2022 12:22:59 AM EDT: THIS REPORT CONTAINS FINDINGS THAT MAY BE CRITICAL TO PATIENT CARE. The findings were verbally communicated via telephone conference with DR. GOLDEN at 12:22 AM EDT on 10/31/2022. The findings were acknowledged and understood. Initial report created on 10/31/2022 12:08:38 AM EDT: PROCEDURE INFORMATION: Exam: XR Chest Exam date and time: 10/30/2022 11:59 PM Age: 62 years old Clinical indication: Other: Post thoracentis left side TECHNIQUE: Imaging protocol: Radiologic exam of the chest. Views: 1 view. COMPARISON: XR PORTABLE CHEST AP 10/30/2022 10:26 PM FINDINGS: Tubes, catheters and devices: A right-sided central catheter is seen with the most inferior tip along the atrial-caval junction. Lungs: Possible minimal pleural air along the left lung apex. Significantly improved aeration of the left lung, with mild residual atelectasis or infiltrate within the left lung base and lingula. Minimal passive atelectasis within the right lung base. The right lung is otherwise well aerated. Pleural spaces: The left-sided pleural effusion has significantly decreased in size when compared to the prior study, now small in size. Small right-sided pleural effusion, unchanged. Possible minimal pleural air along the left lung apex. Heart/Mediastinum: The cardiac silhouette is moderately enlarged. Bones/joints: No acute osseous abnormality. IMPRESSION: Interval left-sided thoracentesis, with significantly decreased left-sided pleural effusion, now with minimal left-sided pleural fluid. Possible minimal pleural air along the left lung apex. Dictated and Authenticated by: Jennifer Lin MD. Ordering:KALYAN Perez MD
[2022-10-31] MEDS: ALBUMIN HUMAN 25 GM/100 ML BTL IVPB ×2 (00:14→04:32)
[2022-10-31 00:19] LABS: Source Pleural
[2022-10-31 00:21] LABS: Clarity Cloudy; Nucleated Cells 698 uL (0)
[2022-10-31 00:53] LABS: Mononuclear Cells 62 %; Polynuclear Cells 38 %
--- NOTE | 2022-10-31 01:49 | NUR.NOTE ---
Nursing Note: Pt self converted to sinus rhythm. EKG acquired.
[2022-10-31 02:09] LABS: Troponin I 76 ng/L (<or=60)
--- NOTE | 2022-10-31 02:42 | NUR.NOTE ---
Nursing Note: Pt BPs continue to be low following conversion to sinus and albumin infusion. Spoke with MD, no new orders, will continue to monitor BP.
--- NOTE | 2022-10-31 03:45 | DI.RAD_ITS ---
Exam(s) XR PORTABLE CHEST AP EXAM: XR PORTABLE CHEST AP CLINICAL HISTORY: chest pain. TECHNIQUE: 2D digital imaging was performed. COMPARISON: CR,XR XR PORTABLE CHEST AP from 10/30/2022 FINDINGS: Single AP portable view. There is again no evidence of pneumothorax on this patient underwent recent left thoracentesis. Smal l left pleural effusion remains and unchanged from last night. However, there is now with some infil trate in the mid left lung field evident, not previously present. Small right pleural effusion is again noted, not increased. Cardiomegaly again noted. Distal tip of dialysis catheter is at the SVC-RA junction, unchanged. IMPRESSION: No pneumothorax. However, there is now infiltrate in the mid left lung field, laterally. Consistent with infectious etiology/aspiration versus possible lung contusion/hemorrhage related to recent proc edure. Small bilateral pleural effusions which are unchanged in size from most recent chest x-ray of 023 23:59 p.m. DATA REPOSITORY: RADIATION DOSE DELIVERED:
--- NOTE | 2022-10-31 04:29 | NUR.NOTE ---
Nursing Note: MD at bedside to discuss with pt options of admission and transfer. Pt asking to go home. MD recommending admission at current pt status.
--- NOTE | 2022-10-31 05:42 | DI.VRAD_ITS ---
PROCEDURE INFORMATION: Exam: XR Chest Exam date and time: 10/31/2022 3:59 AM Age: 62 years old Clinical indication: Other: Chest pain TECHNIQUE: Imaging protocol: Radiologic exam of the chest. Views: 1 view. COMPARISON: XR PORTABLE CHEST AP 10/30/2022 11:59 PM FINDINGS: Tubes, catheters and devices: There is a large-bore central venous catheter in-situ terminating near the cavoatrial junction. Lungs: There is hazy opacity projecting over the mid-lower lung zones. Pleural spaces: There appear to be small pleural effusions. Heart/Mediastinum: The heart appears enlarged. There is atherosclerotic calcification at the apex of the aortic arch. Bones/joints: The visualized bony structures appear grossly intact, as seen. IMPRESSION: 1. Small bilateral pleural effusions. 2. Hazy opacity projecting over the mid-lower lung zones. Alveolar pulmonary edema is suspected. An artifactual appearance created by layering pleural fluid in a recumbent patient could perhaps mimic this appearance. Aspiration could probably also produce this appearance. Dictated and Authenticated by: Ethan Connor MD. Ordering:BOONE Pozo MD
--- NOTE | 2022-10-31 05:59 | NUR.NOTE ---
Nursing Note:Orthostatics completed, pt ambulated in hallway. Pt stated she was mildly dizzy during ambulation. MD aware of pt ambulation and orthostatic vital signs.
--- NOTE | 2022-11-02 10:28 | NUR.NOTE ---
Nursing Note: Accessed chart to determine orders for EKG and to determine whether or not one needs to be cancelled.
== END 2022-10-31 06:09 | disposition home or self-care (01) ==
PROVIDERS: Registered Nurse Emergency; Emergency Provider Emergency Medicine; PCP Nurse Practitioner Family
DX: R06.02 Shortness of breath (principal); R42 Dizziness and giddiness; I95.9 Hypotension, unspecified; I48.91 Unspecified atrial fibrillation; R60.0 Localized edema; N18.4 Chronic kidney disease, stage 4 (severe); J90 Pleural effusion, not elsewhere classified
CPT/HCPCS: 32555; 36415; 80053; 93005; 96365; 96366; 96375; 99284; 71045; 71046; 83735; 83880; 84443; 84484; 85025; 85610; 87070; 87205; 89051; 93010; 99285; J1160

== ENCOUNTER 2022-11-02 07:31 | Outpatient (CLI) | payer MEDICARE, BC, SELFPAY ==
--- NOTE | 2022-11-02 07:30 | RT.EKG_ITS ---
APPROVED REPORT Exam: Resting ECG Reason for Exam: Ruby-renny Patient Location: O HR:82 bpm ECG Measurements Heart Rate 82 AXIS PA 167 P -16 QRSd 91 QRS -19 QT 337 T 3 QTc 394 Conclusion Sinus rhythm...normal P axis, V-rate 50- 99 Borderline left axis deviation...QRS axis (-15,-29) Anteroseptal infarct, old...Q >40mS, V1-V2 Baseline artifact Borderline T abnormalities, inferior leads...T flat/neg, II III aVF
== END 2022-11-02 07:32 | disposition home or self-care (01) ==
LOC: DI.CM 07:32
PROVIDERS: PCP Nurse Practitioner Family; Visit Provider Nurse Practitioner Family
DX: I48.91 Unspecified atrial fibrillation (principal)
CPT/HCPCS: 93010

== ENCOUNTER 2022-11-02 11:19 | Outpatient (CLI) | payer MEDICARE, BC, SELFPAY | END 2022-11-02 11:20 | disposition home or self-care (01) | PROVIDERS: PCP Nurse Practitioner Family; Visit Provider Nurse Practitioner Family | DX: I48.91 Unspecified atrial fibrillation (principal) | CPT/HCPCS: 93246 ==

== ENCOUNTER 2022-11-06 01:18 | Outpatient (CLI) | payer MEDICARE, BC, SELFPAY ==
--- NOTE | 2022-11-06 08:15 | DI.RAD_ITS ---
Exam(s) XR CHEST 2V PA LATERAL EXAM: XR CHEST 2V PA LATERAL CLINICAL HISTORY: bilat pleural effusion,s/p thoracentesis,j90 TECHNIQUE: 2D digital imaging was performed. COMPARISON: CR,XR XR PORTABLE CHEST AP from 10/30/2022 CR,XR XR PORTABLE CHEST AP from 10/30/2022 CR XR CHEST 2V PA LATERAL from 10/30/2022 CR,XR XR PORTABLE CHEST AP from 10/31/2022 FINDINGS: Central venous catheter again noted. Monitoring device located the anterior chest. HEART: Normal size. Aorta: Not dilated. PULMONARY VASCULATURE: Normal. LUNGS: Clear. PLEURAL SPACE: Moderate to large size left pneumothorax occupying approximately 1/2 of the left chest volume. Findings similar to 30 Oct 2022. Small right pleural effusion. No pneumothorax. BONE:Unremarkable for age. IMPRESSION: Moderate to large left pleural effusion. Small right pleural effusion. DATA REPOSITORY: RADIATION DOSE DELIVERED:
== END 2022-11-06 01:38 ==
PROVIDERS: PCP Nurse Practitioner Family; Visit Provider Nurse Practitioner Family
DX: J90 Pleural effusion, not elsewhere classified (principal)
CPT/HCPCS: 71046

== ENCOUNTER 2022-12-01 11:12 | Outpatient (CLI) | payer MEDICARE, BC, SELFPAY ==
--- NOTE | 2022-12-01 12:29 | W.CARDEVENT ---
Date of service: 12/01/22 Time of Service: 12:29 Cardiac Event Recorder Referring Provider:: Annabel Macdonald Indications:: Unspecified atrial fibrillation Cardiac Event Note: This is a cardiac event monitor. Patient was monitored for total of 6 days 15 hours Predominant rhythm was sinus. Average heart rate was 61. Minimum was 42, maximum 94 There were occasional atrial premature beats. A total of 40 self-limited atrial runs occurred. The longest of these was 32 beats in duration There were no significant ventricular dysrhythmias There was no atrial fibrillation, no high-grade AV block, no pauses greater than 3 seconds Patient's symptoms did not correspond to any dysrhythmia
== END 2022-12-01 11:13 | disposition home or self-care (01) ==
LOC: CARDOPNVT 11:12
PROVIDERS: PCP Nurse Practitioner Family; Visit Provider Internal Medicine Cardiovascular Disease
DX: I48.91 Unspecified atrial fibrillation (principal); I49.1 Atrial premature depolarization
CPT/HCPCS: 93248

== ENCOUNTER 2023-04-28 15:09 | Outpatient (REF) | payer MEDICARE, BC, SELFPAY | END 2023-04-28 15:10 | disposition home or self-care (01) | LOC: LBN 15:09 | PROVIDERS: PCP Nurse Practitioner Family; Visit Provider Nurse Practitioner Family | DX: N39.0 Urinary tract infection, site not specified (principal) | CPT/HCPCS: 87077; 87086; 87186 ==

== ENCOUNTER 2023-05-17 09:42 | Outpatient (CLI) | payer MEDICARE, BC, SELFPAY ==
[2023-05-17 12:33] LABS: Abs Immature Grans 0.07 10^3/uL (0.0-0.06); Absolute Basophil Count 0.04 10^3/uL (0.0-0.2); Absolute Eosinophil Count 0.19 10^3/uL (0.0-0.7); Absolute Monocyte Count 0.39 10^3/uL (0.1-0.8); Basophils % 0.3; Eosinophils % 1.3; HGB 11.4 g/dL (11.2-15.7); Immature Grans % 0.5; Lymphocytes % 1.7; MCH 28.9 pg (27.0-33.0); MCHC 30.8 % (32.0-36.0); MCV 94 fL (80-95); MPV 9.5 fL (8.0-11.0); Monocytes % 2.7; Neutrophils % 93.5; Platelet Count 193 10^3/uL (130-400); RBC 3.94 10^6/uL (3.93-5.22); RDW 16.6 % (11.7-14.6); RDW-SD 57.8 fL; WBC 14.31 10^3/uL (4.4-10.8)
[2023-05-17 12:35] LABS: Absolute Lymphocyte Count 0.24 10^3/uL (1.2-3.4); Absolute Neutrophil Count 13.38 10^3/uL (1.2-6.7)
[2023-05-17 12:41] LABS: ALT 35 U/L (14-59); AST 19 U/L (15-37); Albumin 3.6 g/dL (3.4-5.0); Alkaline Phosphatase 79 U/L (46-116); Anion Gap 7.3 mmol/L (3-11); BUN 40 mg/dL (7-18); Bilirubin, Total 0.6 mg/dL (0.2-1.0); CO2 26.7 mmol/L (21.0-32.0); CREATININE 1.2 mg/dL (0.55-1.02); Calcium 10.2 mg/dL (8.5-10.1); Chloride 104 mmol/L (98-107); Estimated GFR 50.23 (mL/min/1.73m2); Glucose 149 mg/dL (74-106); Lipase 23 U/L (16-77); Potassium 4.5 mmol/L (3.5-5.1); Sodium 138 mmol/L (136-145); Total Protein 7.1 g/dL (6.4-8.2)
== END 2023-05-17 09:43 | disposition home or self-care (01) ==
LOC: LOS 09:42
PROVIDERS: PCP Nurse Practitioner Family; Referring Provider Nurse Practitioner Family; Visit Provider Nurse Practitioner Family
DX: R10.13 Epigastric pain (principal)
CPT/HCPCS: 36415; 80053; 83690; 85025

== ENCOUNTER → 2023-05-17 12:36 | Outpatient (CLI) | payer MEDICARE, BC, SELFPAY ==
--- NOTE | 2023-05-17 10:14 | DI.CT_ITS ---
Exam(s) CT ABDOMEN PELVIS WO EXAM: CT ABDOMEN PELVIS WO CLINICAL HISTORY: Epigastric pain,cholelithiasis,kidney transplant. TECHNIQUE: Imaging Protocol: Axial computed tomography images with coronal and sagittal reformatted images were created and reviewed. Oral: yes / COMPARISON: CT CT ABDOMEN PELVIS W from 09/06/2021 FINDINGS: ABDOMEN and PELVIS: Lung Bases: No acute findings. Liver: Normal density. No measurable mass. Gallbladder and biliary tract: Small gallstones. No gallbladder wall thickening. Pancreas: Normal density, no abnormal calcifications or inflammatory process. Spleen: Normal. Kidneys: [place] kidneys extremely atrophic. Somewhat atrophic appearing right sided renal transplant . Left sided renal transplant also noted which appears normal in size. this transplant is new since the prior exam. No hydronephrosis. Adrenal glands: No masses seen. Lymph nodes: Within normal limits. Abdominal Aorta: Abdominal portion non-dilated. Heavily calcified. Soft tissues: 5.2 x 3.1 by 9.5 centimeter collection seen superior to the level of the left lower vasile drant renal transplant, directly adjacent to the flank muscles. Findings may represent postsurgical seroma or hematoma. No gas bubbles to suggest infection. Infection not entirely excluded. Tubing noted over left lower quadrant and left groin region. Abdominal wall scarring. Small midline fatty containing hernias. Bladder: No wall thickening. No mass or calculi. Bowel: Contrast seen in stomach and proximal small bowel. There are dilated bowel loops of proximal and mid small bowel with feculent material with transition point in the low pelvis. Bowel distended to 4.5 cm. No visible wall thickening. Findings consistent with small-bowel of obstruction likely secondary to adhesions. Appendix normal. Peritoneal cavity: No ascites, collection or mesenteric inflammatory response. Reproductive organs: Within status post hysterectomy. Bones: Unremarkable for age.. IMPRESSION: 1. Findings consistent with small-bowel obstruction with transition point in lower midline of the pe lvis. 2. Status post left renal transplant. No hydronephrosis. Collection seen superior to renal transpl ant along left flank could represent post surgical hematoma or seroma. Abscess not entirely excluded . RADIATION DOSE DELIVERED: Total DLP DATA REPOSITORY: All CT scans at this facility are submitted to the National Radiology Data Registry (NRDR) Dose Index Registry (DIR) with the [employer] ([employer]). RADIATION OPTIMIZATION: All CT scans at this facility use at least one of these dose optimization te chniques: automated exposure control; mA and/or kV adjustment per patient size (includes targeted exa ms where dose is matched to clinical indication); or iterative reconstruction.
[2023-05-17] MEDS: Barium Sulfate 2% W/V-Berry Smoothie 450 ML BTL PO (10:49)
== END ==
PROVIDERS: PCP Nurse Practitioner Family; Visit Provider Nurse Practitioner Family
DX: R10.13 Epigastric pain (principal); Z94.0 Kidney transplant status; K56.609 Unspecified intestinal obstruction, unspecified as to partial versus complete obstruction
CPT/HCPCS: 74176

== ENCOUNTER 2023-05-17 13:16 | Emergency (ER) | payer MEDICARE, BC, SELFPAY ==
[2023-05-17] VITALS (90 sets, daily range): BP systolic 130–204; BP diastolic 67–110; PULSE 71–96; RESP 10–35; TEMP 36.5; O2SAT 91–100
--- NOTE | 2023-05-17 13:30 | RT.EKG_ITS ---
APPROVED REPORT Exam: Resting ECG Reason for Exam: weakness Patient Location: E HR:72 bpm ECG Measurements Heart Rate 72 AXIS ID 131 P -11 QRSd 87 QRS -4 QT 412 T 46 QTc 453 Conclusion Sinus rhythm...normal P axis, V-rate 60- 99 Left ventricular hypertrophy...multiple voltage criteria ST elevation secondary to LVH...Multiple VCG criteria
[2023-05-17] MEDS: Lactated Ringers 1,000 ML 100 ML IV (13:57)
[2023-05-17] MEDS: Metoclopramide 10 MG/2 ML VIAL 5 MG IVP (13:57)
[2023-05-17 13:59] LABS: Magnesium 1.9 mg/dL (1.8-2.4)
--- NOTE | 2023-05-17 14:11 | NUR.NOTE ---
Nursing Note: Pt arrived to the department with a drain in her leg and a drain to her kidney that was transplanted at the end of Jan.
--- NOTE | 2023-05-17 14:29 | ED.GENADUL_ITS ---
Discharge Plan Disposition Patient Disposition: Transfer-Acute Inpatient Care Specific Acute Inpt Facility: [facility] Condition: Poor Discharge Details Clinical Impression: Small bowel obstruction Primary Care Provider: Annabel Macdonald ED Provider: Kacy Villagran [place] Meds and New Rx's Prescriptions: No Action tacrolimus 1 mg capsule 2 - 3 mg PO Q12H Rx Instructions: 3 capsules in AM, 2 capsules in PM mycophenolate mofetil 250 mg capsule 500 mg PO BID prednisone 10 mg tablet 10 mg PO DAILY diltiazem HCl 120 mg capsule,extended release 24 hr 240 mg PO DAILY carvedilol 25 mg tablet 25 mg PO BID hydralazine 25 mg tablet 100 mg PO TID sulfamethoxazole-trimethoprim [Bactrim] 400-80 mg tablet 1 tab PO .MWF valganciclovir 450 mg tablet 450 mg PO DAILY magnesium gluconate 27 mg magnesium (500 mg) tablet 54 mg PO TID calcium carbonate 400 mg calcium (1,000 mg) tablet,chewable 800 mg PO TID aspirin 81 mg tablet,delayed release (DR/EC) 81 mg PO DAILY calcitriol 0.5 mcg capsule 0.5 mcg PO DAILY folic acid 1 mg tablet 1 mg PO DAILY Thera M Plus (ferrous fumarat) 9 mg iron-400 mcg tablet 1 tab PO DAILY pantoprazole 40 mg tablet,delayed release (DR/EC) 40 mg PO BID tamsulosin 0.4 mg capsule 0.4 mg PO QHS vancomycin 125 mg capsule 125 mg PO QID insulin glargine [Lantus Solostar U-100 Insulin] 100 unit/mL (3 mL) insulin pen 4 unit subcut DAILY sennosides [Natural Senna Laxative] 8.6 mg tablet 8.6 - 17.2 mg PO BID PRN (DME) OneTouch Verio test strips Strip See Rx Instructions .Route acetaminophen [Tylenol] 325 mg capsule 325 - 650 mg PO Q8H PRN (DME) lancets [Onetouch Delica Safety Lancet] 30 gauge misc See Rx Instructions .Route Promacta 25 mg tablet 25 mg PO DAILY Rx Instructions: administer on an empty stomach, at least 1 hour before or 2 hours after food/meal(s) Discharge Data Discharge Date/Time-TO BE ENTERED AT DEPARTURE: 05/17/23 22:28 Medical Decision Making <ASHANTI Hu - Last Filed: 05/19/23 18:26> Chronically ill-appearing 63-year-old female presenting from outpatient clinic with report of SBO Distended abdomen, minimal tenderness, no rebound or guarding, wound VAC in place to abdomen and left inner thigh, pallor, alert and oriented, moist mucous membranes, no evidence of cellulitis Labs and CT were reviewed CT with small bowel obstruction noted with transition point in the pelvis, bowel distended to 4.5 cm, also collection seen superior to the renal transplant along left flank, possible surgical hematoma or seroma, of note on clinical exam, patient has a wound VAC in place Leukocytosis, 14,000, afebrile Creatinine has increased from 0.9-1.2 BUN is 40, consistent with patient's prior, magnesium and potassium are within normal limits Patient is significantly medically complex and will need transfer to tertiary care secondary to medical comorbidities and recent renal transplant Case was discussed with Dr. Flores, surgery at [facility] and will admit with consultation with renal transplant team Patient is agreeable to transfer, of note, her blood pressure did increase she has not taken her antihypertensives today, 190/89 will administer 10 mg of IV hydralazine Receiving 100 cc of LR an hour, Reglan, NG tube being placed by nursing staff to suction, patient has been accepted by Dr. Flores pending bed transfer will order KUB for confirmation if there is a delay in transfer, recommendation to [place] [facility] [place] of [place]ressives care transitioned to Kacy Villagran NP pending KUB, BP monitoring, and NG tube maint, [place] [facility] [place] <Kacy Villagran NP - Last Filed: 05/17/23 19:50> Chronically ill-appearing 63-year-old female presenting from outpatient clinic with report of SBO Distended abdomen, minimal tenderness, no rebound or guarding, wound VAC in place to abdomen and left inner thigh, pallor, alert and oriented, moist mucous membranes, no evidence of cellulitis Labs and CT were reviewed CT with small bowel obstruction noted with transition point in the pelvis, bowel distended to 4.5 cm, also collection seen superior to the renal transplant along left flank, possible surgical hematoma or seroma, of note on clinical exam, patient has a wound VAC in place Leukocytosis, 14,000, afebrile Creatinine has increased from 0.9-1.2 BUN is 40, consistent with patient's prior, magnesium and potassium are within normal limits Patient is significantly medically complex and will need transfer to tertiary care secondary to medical comorbidities and recent renal transplant Case was discussed with Dr. Flores, surgery at [facility] and will admit with consultation with renal transplant team Patient is agreeable to transfer, of note, her blood pressure did increase she has not taken her antihypertensives today, 190/89 will administer 10 mg of IV hydralazine Receiving 100 cc of LR an hour, Reglan, NG tube being placed by nursing staff to suction, patient has been accepted by Dr. Flores pending bed transfer will order KUB for confirmation if there is a delay in transfer, recommendation to call [facility] [place] admin of [place]ressives care transitioned to Kacy Villagran NP pending KUB, BP monitoring, and NG tube maint, tx [place] [facility] [place] Exactly care of patient received patient remains monitored closely while in the department. She did have an episode of vomiting. NG tube was flushed with saline with little results. The patient had requested a small to be placed unfortunately so I did asked nursing staff to replace the 10 Uzbek tube with a appropriately sized NG tube. She did have better output and resolution of her vomiting after tube change. Blood pressures have remained in the 150s to 180s systolic. At 1950 we were notified a bed was available at [facility] patient will be transported by ground EMS for further management. HPI <ASHANTI Hu - Last Filed: 05/19/23 18:26> General Date/Time Provider Initiated Documentation: 05/17/23 13:20 . HPI Narrative: This 63-year-old female with complex medical history most significantly consisting of renal transplant the end of January with parathyroidectomy, history of atrial fibrillation chronic kidney disease, idiopathic thrombocytopenia, multinodular goiter, aortic regurgitation presents with reports of abdominal pain nausea and vomiting starting yesterday. Was seen at her PCPs clinic this afternoon and had blood work and CT scan. CT scan with small bowel obstruction, last episode of vomiting prior to arrival was 15 minutes ago. Patient did take all of her meds including immunosuppressive's last evening, has not taken her meds today. Denies fever or chills. Denies any blood in vomitus. Denies any diarrhea. Denies any new medications. Related Data Home Medications Medication Instructions Recorded Confirmed acetaminophen 325 mg capsule 325 - 650 mg PO Q8H PRN 05/03/23 05/17/23 (Tylenol) aspirin 81 mg tablet,delayed 81 mg PO DAILY 05/03/23 05/17/23 release blood sugar diagnostic ([facility] 05/03/23 05/03/23 Verio test strips) calcitriol 0.5 mcg capsule 0.5 mcg PO DAILY 05/03/23 05/17/23 calcium carbonate 400 mg calcium 800 mg PO TID 05/03/23 05/17/23 (1,000 mg) chewable tablet carvedilol 25 mg tablet 25 mg PO BID 05/03/23 05/17/23 diltiazem HCl 120 mg capsule,24 240 mg PO DAILY 05/03/23 05/17/23 hr,extended release folic acid 1 mg tablet 1 mg PO DAILY 05/03/23 05/17/23 hydralazine 25 mg tablet 100 mg PO TID 05/03/23 05/17/23 insulin glargine 100 unit/mL (3 4 unit subcut DAILY 05/03/23 05/17/23 mL) subcutaneous pen (Lantus Solostar U-100 Insulin) lancets 30 gauge ([facility] 05/03/23 05/03/23 Safety Lancet) magnesium gluconate 27 mg 54 mg PO TID 05/03/23 05/17/23 magnesium (500 mg) tablet multivitamin-iron 9 mg-folic acid 1 tab PO DAILY 05/03/23 05/17/23 400 mcg-calcium and minerals tablet (Thera M Plus (ferrous fumarate)) mycophenolate mofetil 250 mg 500 mg PO BID 05/03/23 05/17/23 capsule pantoprazole 40 mg tablet,delayed 40 mg PO BID 05/03/23 05/17/23 release prednisone 10 mg tablet 10 mg PO DAILY 05/03/23 05/17/23 sennosides 8.6 mg tablet (Natural 8.6 - 17.2 mg PO BID PRN 05/03/23 05/17/23 Senna Laxative) sulfamethoxazole 400 1 tab PO .MWF 05/03/23 05/17/23 mg-trimethoprim 80 mg tablet (Bactrim) tacrolimus 1 mg capsule, 2 - 3 mg PO Q12H 05/03/23 05/17/23 immediate-release tamsulosin 0.4 mg capsule 0.4 mg PO QHS 05/03/23 05/17/23 valganciclovir 450 mg tablet 450 mg PO DAILY 05/03/23 05/17/23 vancomycin 125 mg capsule 125 mg PO QID 05/03/23 05/17/23 eltrombopag 25 mg tablet (Promacta) 25 mg PO DAILY 05/17/23 05/17/23 Allergies Allergy/AdvReac Type Severity Reaction Status Date / Time lidocaine Allergy Severe RASH Verified 05/17/23 13:35 lisinopril AdvReac Mild Cough Verified 05/17/23 13:35 milk AdvReac Mild DIARRHEA Verified 05/17/23 13:35 General Stated Complaint: Abd Prob CJ: 3 PFSH <ASHANTI Hu - Last Filed: 05/19/23 18:26> All Active Problems (Updated 05/17/23 @ 19:50 by Kacy Villagran NP) Small bowel obstruction (Acute) SBO (small bowel obstruction) (Acute) History of kidney transplant (Chronic 02/28/23) Right kidney transplant 2005, failed, s/p left kidney transplant 2022 End-stage renal disease (ESRD) (Chronic) Due to hypertensive nephrosclerosis s/p right kidney transplant in 2005 which failed and now s/p left kidney transplant 2022 Abdominal wound dehiscence (Acute ~03/2023) Wound vac in place Open wound of left thigh (Acute ~03/2023) Wound vac in place Paroxysmal atrial fibrillation (Chronic) Essential hypertension (Chronic) Idiopathic thrombocytopenia (Chronic) Anemia in chronic kidney disease (CKD) (Chronic) Chronic cough (Chronic) GERD with esophagitis (Chronic) Moderate aortic regurgitation (Chronic) Multinodular goiter (Chronic) [facility] [place]. Repeat thyroid US 2023 Rectocele (Chronic) 2018. Stage3 with Valsalva. Expectant management at this time. Gout (Chronic) Hernia of anterior abdominal wall (Chronic) Medical History (Updated 05/17/23 @ 19:50 by Kacy Villagran NP) GI bleed Secondary hyperparathyroidism of renal origin H. 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 Colpo VAIN2. CO2 Laser [place] [facility] [place]. Colpo Bx VAIN1. 08/2014. HGSIL. +HPV. 05/2015 Neg Pap 10/2015 ASCUS Pap. 07/2016 ASCUS, 12/2016 ASC-H. 12/2017 Pap Normal 01/2019. Pap normal Surgical History (Updated 05/03/23 @ 20:42 by Annabel Macdonald NP) S/p cadaver renal transplant (02/28/23) Left kidney S/P parathyroidectomy (02/08/23) S/P exploratory laparotomy (06/10/21) H/O ligation of vein (05/26/21) Ligation of LUE AVF S/P arteriovenous (AV) fistula creation (~2002) Left arm History of section (1986) S/P total abdominal hysterectomy (01/16/09) For AUB; ovaries preserved S/p cadaver renal transplant (10/04/05) Right kidney Family History Son No problems noted. Son No problems noted. 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 Pets and animals: No Sexually active: Yes Do you think of yourself as: straight/heterosexual Current gender identity: female What is your relationship status?: How often do you talk on the phone with friends or family?: twice per week How often do you get together with friends or relatives?: once per week How often do you attend jehovah's witness or alevism services?: decline to answer Do you belong to any clubs or organized social groups?: no Panel score (0-1 are the most socially isolated patients): 2 What type of physical activity do you participate in: walking Duration: 15-30 minutes/day Frequency: 1-2 times per week Special jovita needs: No Agree to transfusion: No Seatbelt use: always Helmet use: No Drive intox or ride w/intox moving van driver: No Working smoke detector in home: Yes Carbon monox detector in home: Yes Firearms in home: Yes Firearms unloaded and locked: Yes Do you feel safe at home: Yes Do you feel safe in your relationship?: Yes Victim of physical abuse: No Victim of emotional abuse: No Victim of sexual abuse: No Additional Social history: Children: 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 Robert works in [employer] Female Reproductive History Menstrual Menopause type: surgical History History 4 Para 2 Hx # Term Pregnancies Multiple births Hx # Pregnancies Ectopic pregnancies AB induced Hx Number of Living Children 2 AB spontaneous 2 Course <ASHANTI Hu - Last Filed: 05/19/23 18:26> Vital Signs Vital signs: Vital Signs Temperature 36.5 C 05/17/23 13:19 Pulse 73 05/17/23 13:19 Respiratory Rate 18 05/17/23 13:19 Blood Pressure 135/92 H 05/17/23 13:19 Pulse Oximetry 99 05/17/23 13:19 Temperature 36.5 C 05/17/23 13:19 Pulse 73 05/17/23 13:19 Respiratory Rate 18 05/17/23 13:19 Respiratory Effort Normal 05/17/23 13:35 Blood Pressure 135/92 H 05/17/23 13:19 Pulse Oximetry 99 05/17/23 13:19 Oxygen Delivery Method Room Air 05/17/23 13:19 Oxygen Flow Rate 0 05/17/23 13:19 Lab/Test Results Lab/Test Results: 05/17/23 13:45 Blood Blood Culture - Pending 05/17/23 13:45 Blood Blood Culture - Pending Laboratory Tests Range/Units 05/17/23 13:33 Magnesium (1.8-2.4) mg/dL 1.9 Critical Care Time <ASHANTI Hu - Last Filed: 05/19/23 18:26> Critical Care Time Attestation: ~45 minutes of critical care time secondary to acute hypertension, small bowel obstruction requiring NG tube placement suction, IV antihypertensives secondary to NG tube and acute hypertension with history of recent renal transplant, review of CT imaging indicating acute small bowel obstruction, diagnostic lab interpretation and review with acute renal insufficiency in the presence of recent renal transplant, IV fluid resuscitation, consultation with surgery at [facility] and transfer to tertiary care facility Sign Out <ASHANTI Hu - Last Filed: 05/19/23 18:26> Sign Out Data: Sign Out Comment: pending [place] [facility] [place], BP monitoring and treatment, ng tube confirmation kub pending Last updated by Kat Henson PA at 05/17/23 15:40
[2023-05-17 14:39] LABS: Lactate 0.7 mmol/L (0.6-1.4)
--- NOTE | 2023-05-17 15:00 | DI.RAD_ITS ---
Exam(s) XR LINE PLACEMENT PICC/CVA EXAM: XR LINE PLACEMENT PICC/CVA INDICATION: ng tube placement. COMPARISON: No exams were available for comparison TECHNIQUE: 2D digital imaging was performed. Three views. FINDINGS: A nasogastric tube has been inserted and projects in the fundus and body of the stomach. Multiple dilated loops of small bowel are again noted in the central abdomen. Surgical clips left lo wer quadrant. IMPRESSION: Satisfactory placement of NG tube. DATA REPOSITORY: RADIATION DOSE DELIVERED:
[2023-05-17 15:01] LABS: Troponin I < 50 ng/L (<or=60)
[2023-05-17] MEDS: fentaNYL 100 MCG/2 ML VIAL 50 MCG IVP ×2 (15:19→22:25)
[2023-05-17] MEDS: hydrALAZINE 20 MG/ML VIAL 5 MG IVP ×2 (15:19→15:59)
[2023-05-17 15:37] LABS: Procalcitonin < 0.1 ng/mL
--- NOTE | 2023-05-17 17:42 | NUR.NOTE ---
Nursing Note: [facility] aware of blood pressure, no further orders at this time
--- NOTE | 2023-05-17 18:51 | NUR.NOTE ---
Nursing Note: Pts NG tube was no longer draining properly. Replaced with a larger tube 14f. Placed my PMD. Vomitted before first tube was taken out. Gastric contents remain yellow. Placement check wih auscultation.
[2023-05-17] MEDS: hydrALAZINE 20 MG/ML VIAL 10 MG IVP (22:26)
== END 2023-05-17 22:28 | disposition short-term general hospital (02) ==
PROVIDERS: Physician Assistant; Emergency Provider Nurse Practitioner Acute Care; PCP Nurse Practitioner Family
DX: R11.2 Nausea with vomiting, unspecified (principal); R10.13 Epigastric pain; K56.609 Unspecified intestinal obstruction, unspecified as to partial versus complete obstruction; Z94.0 Kidney transplant status; I48.91 Unspecified atrial fibrillation; E04.2 Nontoxic multinodular goiter; I35.1 Nonrheumatic aortic (valve) insufficiency; Z79.4 Long term (current) use of insulin; Z79.899 Other long term (current) drug therapy; T81.31XA Disruption of external operation (surgical) wound, not elsewhere classified, initial encounter; I10 Essential (primary) hypertension; Z79.82 Long term (current) use of aspirin
CPT/HCPCS: 36415; 77001; 80053; 83690; 84145; 87040; 93005; 96374; 96376; 99285; 74176; 83605; 83735; 84484; 85025; 93010; J0360; J2765; J3010

== ENCOUNTER 2023-05-23 17:08 | Outpatient (REF) | payer MEDICARE, BC, SELFPAY ==
[2023-05-23 18:18] LABS: Absolute Basophil Count 0.04 10^3/uL (0.0-0.2); Absolute Eosinophil Count 0.11 10^3/uL (0.0-0.7); Absolute Lymphocyte Count 0.26 10^3/uL (1.2-3.4); Absolute Monocyte Count 0.68 10^3/uL (0.1-0.8); Absolute Neutrophil Count 8.93 10^3/uL (1.2-6.7); Basophils % 0.4; Eosinophils % 1.1; HCT 32.6 % (36.0-46.0); HGB 10.3 g/dL (11.2-15.7); Immature Grans % 2.9; Lymphocytes % 2.5; MCH 29.3 pg (27.0-33.0); MCHC 31.6 % (32.0-36.0); MCV 93 fL (80-95); MPV 10.2 fL (8.0-11.0); Monocytes % 6.6; Neutrophils % 86.5; Platelet Count 154 10^3/uL (130-400); RBC 3.51 10^6/uL (3.93-5.22); RDW 15.6 % (11.7-14.6); RDW-SD 53.2 fL; WBC 10.32 10^3/uL (4.4-10.8)
[2023-05-23 19:09] LABS: ALT 38 U/L (14-59); AST 18 U/L (15-37); Albumin 3.2 g/dL (3.4-5.0); Alkaline Phosphatase 89 U/L (46-116); Anion Gap 6.5 mmol/L (3-11); BUN 36 mg/dL (7-18); Bilirubin, Total 0.2 mg/dL (0.2-1.0); CO2 25.5 mmol/L (21.0-32.0); CREATININE 0.9 mg/dL (0.55-1.02); Calcium 8.6 mg/dL (8.5-10.1); Chloride 103 mmol/L (98-107); Estimated GFR 70.95 (mL/min/1.73m2); Glucose 153 mg/dL (74-106); Potassium 5.2 mmol/L (3.5-5.1); Sodium 135 mmol/L (136-145); Total Protein 5.8 g/dL (6.4-8.2)
[2023-05-26 12:34] LABS: Tacrolimus 10.7 ng/mL (See Note)
== END 2023-05-23 17:09 | disposition home or self-care (01) ==
LOC: LBN 17:08
PROVIDERS: PCP Nurse Practitioner Family; Visit Provider Surgery
DX: Z29.89 Encounter for other specified prophylactic measures (principal); Z94.0 Kidney transplant status
CPT/HCPCS: 80053; 80197; 85025

== ENCOUNTER → 2023-06-29 01:30 | Outpatient (CLI) | payer MEDICARE, BC, SELFPAY ==
--- NOTE | 2023-06-29 09:00 | DI.MAMMO_ITS ---
Exam(s) MAMMO SCREENING EXAM: MAMMO SCREENING CLINICAL HISTORY: screening, Z12.39. TECHNIQUE: Bilateral full field digital CC and MLO mammographic images were obtained with 3D tomosyn thesis and utilizing computer aided detection (CAD). COMPARISON: None. FINDINGS: Fibroglandular tissue is moderately dense. There are no CAD designations. There are no obvious spiculated masses nor malignant appearing microcalcification groups. There is no significant architectural distortion nor skin thickening-retraction. IMPRESSION: No radiographic evidence of malignancy. BI-RADS Category 1 - Negative Breast Density - Category C - Heterogeneously dense Breast density Category C or D implies that the patient has dense breast tissue. Dense breast tissue can make it harder to find cancer on a mammogram. Dense breast tissue is also associated with an incr eased risk of breast cancer. This information about the result of the mammogram report was provided to the patient to raise their awareness. Use this report when you speak with the patient about their risks for breast cancer, which includes their family history. At that time, you may recommend additional screening tests (Ultrasoun d or MRI) as these tests may add significant information. A negative radiographic report should not delay biopsy if a dominant or clinically suspicious mass is present. Up to ten percent of cancers are not identified on mammography. A negative report may reinforce clinical impression. Adenosis and dense breasts may obscure an underlying neoplasm. False positive reports average 6 to 10%. Patient will receive a letter notifying them of these results.
== END ==
PROVIDERS: PCP Nurse Practitioner Family; Visit Provider Nurse Practitioner Family
DX: Z12.31 Encounter for screening mammogram for malignant neoplasm of breast (principal)
CPT/HCPCS: 77063; 77067

== ENCOUNTER 2023-07-25 09:38 | Outpatient (CLI) | payer MEDICARE, BC, SELFPAY ==
[2023-07-27 15:01] LABS: BKV DNA Detect/Quant, P Undetected IU/mL (Undetected)
== END 2023-07-25 09:39 | disposition home or self-care (01) ==
LOC: LBO 09:39
PROVIDERS: PCP Nurse Practitioner Family; Visit Provider Nurse Practitioner Family
DX: Z94.0 Kidney transplant status (principal); Z29.89 Encounter for other specified prophylactic measures
CPT/HCPCS: 36415; 87799

== ENCOUNTER 2023-10-31 05:44 | Outpatient (CLI) | payer MEDICARE, BC, SELFPAY ==
[2023-10-31 13:49] LABS: Bilirubin Negative (Negative); Blood Negative (Negative); Clarity Clear (Clear); Glucose Negative (Negative); Ketones Negative (Negative); Leukocyte Esterase Negative (Negative); Nitrite Negative (Negative); Specific Gravity 1.015 (1.005-1.025); Urobilinogen 0.2 mg/dL (Up to 0.2); pH 5.5 (5-8)
[2023-10-31 13:53] LABS: Abs Immature Grans 0.11 10^3/uL (0.0-0.06); Absolute Basophil Count 0.04 10^3/uL (0.0-0.2); Absolute Eosinophil Count 0.15 10^3/uL (0.0-0.7); Absolute Lymphocyte Count 0.21 10^3/uL (1.2-3.4); Absolute Monocyte Count 0.49 10^3/uL (0.1-0.8); Absolute Neutrophil Count 5.73 10^3/uL (1.2-6.7); Basophils % 0.6 %; Eosinophils % 2.2 %; HCT 33.3 % (36.0-46.0); HGB 10.3 g/dL (11.2-15.7); Immature Grans % 1.6 %; Lymphocytes % 3.1 %; MCH 27.7 pg (27.0-33.0); MCHC 30.9 % (32.0-36.0); MCV 90 fL (80-95); MPV 9.9 fL (8.0-11.0); Monocytes % 7.3 %; Neutrophils % 85.2 %; Platelet Count 172 10^3/uL (130-400); RBC 3.72 10^6/uL (3.93-5.22); RDW 13.3 % (11.7-14.6); RDW-SD 43.6 fL; WBC 6.73 10^3/uL (4.4-10.8)
[2023-10-31 14:15] LABS: Cholesterol 178 mg/dL (<200)
[2023-10-31 14:21] LABS: ALT 30 U/L (14-59); AST 20 U/L (15-37); Albumin 3.3 g/dL (3.4-5.0); Alkaline Phosphatase 79 U/L (46-116); Anion Gap 9.5 mmol/L (3-11); BUN 40 mg/dL (7-18); Bilirubin, Total 0.4 mg/dL (0.2-1.0); CO2 26.5 mmol/L (21.0-32.0); Calcium 8.9 mg/dL (8.5-10.1); Chloride 100 mmol/L (98-107); Estimated GFR 27.21 (mL/min/1.73m2); Glucose 135 mg/dL (74-106); Magnesium 1.5 mg/dL (1.8-2.4); PHOSPHORUS 4.9 mg/dL (2.6-4.7); Potassium 4.7 mmol/L (3.5-5.1); Sodium 136 mmol/L (136-145); Total Protein 6.5 g/dL (6.4-8.2); Uric Acid 7.5 mg/dL (2.6-6.0)
[2023-10-31 14:32] LABS: COMMENT (LAB VIEW ONLY) 32.72 mg/dL; PROTEIN < 6.0 mg/dL
[2023-11-01 12:56] LABS: Tacrolimus 4.4 ng/mL (See Note)
== END 2023-10-31 05:45 | disposition home or self-care (01) ==
LOC: LBO 05:44
PROVIDERS: PCP Nurse Practitioner Family; Visit Provider Internal Medicine Nephrology
DX: Z94.0 Kidney transplant status (principal); Z94.83 Pancreas transplant status; Z79.899 Other long term (current) drug therapy
CPT/HCPCS: 36415; 80053; 80197; 81003; 82465; 82565; 83735; 84100; 84156; 84550; 85025

== ENCOUNTER 2023-11-21 13:38 | Outpatient (CLI) | payer MEDICARE, BC, SELFPAY ==
[2023-11-21 10:48] LABS: HCT 30.7 % (36.0-46.0); MCH 27.9 pg (27.0-33.0); MCHC 32.6 % (32.0-36.0); MCV 86 fL (80-95); MPV 9.1 fL (8.0-11.0); Platelet Count 153 10^3/uL (130-400); RBC 3.59 10^6/uL (3.93-5.22); RDW 13.8 % (11.7-14.6)
[2023-11-21 10:50] LABS: Bilirubin Negative (Negative); Blood Negative (Negative); Clarity Clear (Clear); Glucose Negative (Negative); Ketones Negative (Negative); Leukocyte Esterase Trace (Negative); Nitrite Negative (Negative); Urobilinogen 0.2 mg/dL (Up to 0.2)
[2023-11-21 11:04] LABS: Bacteria Negative HPF (Negative); C & S Indicated? No; Casts Negative LPF (Negative); Crystals Negative HPF (Negative); Epithelial Cells Rare HPF (Negative); Mucus Negative (Negative); Other Cells Rare Renal (Negative); RBC Negative HPF (0-2); WBC 0-2 HPF (0-5)
[2023-11-21 11:11] LABS: ALT 44 U/L (14-59); AST 35 U/L (15-37); Albumin 3.6 g/dL (3.4-5.0); Alkaline Phosphatase 64 U/L (46-116); Anion Gap 6.5 mmol/L (3-11); BUN 33 mg/dL (7-18); Bilirubin, Total 0.6 mg/dL (0.2-1.0); CO2 29.5 mmol/L (21.0-32.0); CREATININE 1.8 mg/dL (0.55-1.02); Calcium 8.9 mg/dL (8.5-10.1); Chloride 99 mmol/L (98-107); Estimated GFR 30.88 (mL/min/1.73m2); Glucose 122 mg/dL (74-106); Magnesium 1.4 mg/dL (1.8-2.4); Potassium 4.2 mmol/L (3.5-5.1); Sodium 135 mmol/L (136-145); Total Protein 6.4 g/dL (6.4-8.2); Uric Acid 7.3 mg/dL (2.6-6.0)
[2023-11-21 11:54] LABS: Cholesterol 181 mg/dL (<200)
[2023-11-21 12:27] LABS: Vitamin B12 596 pg/mL (193-986)
[2023-11-21 12:36] LABS: Ferritin > 2000 ng/mL (8-252); Folate > 20.0 ng/mL (8.6-20.0)
[2023-11-21 13:45] LABS: COMMENT (LAB VIEW ONLY) 13.39 mg/dL; PROTEIN 8.5 mg/dL; Prot/Crea Ur Ratio 0.63
[2023-11-21 13:49] LABS: Iron 125 ug/dL (50-170); Total Iron Binding Capacity 237 ug/dL (250-450); Transferrin Sat 53 % (15-50)
[2023-11-22 13:26] LABS: Tacrolimus 9.1 ng/mL (See Note)
[2023-11-23 13:10] LABS: BKV DNA Detect/Quant, P 293 IU/mL (Undetected)
== END 2023-11-21 13:39 | disposition home or self-care (01) ==
LOC: LBO 13:38
PROVIDERS: PCP Nurse Practitioner Family; Visit Provider Internal Medicine Nephrology
DX: Z94.0 Kidney transplant status (principal); D64.9 Anemia, unspecified
CPT/HCPCS: 36415; 80053; 85027; 80197; 81003; 81015; 82465; 82565; 82607; 82728; 82746; 83540; 83550; 83735; 84100; 84156; 84550; 87799

== ENCOUNTER 2024-03-12 03:54 | Outpatient (CLI) | payer MEDICARE, BC, SELFPAY ==
[2024-03-12 15:53] LABS: Abs Immature Grans 0.06 10^3/uL (0.0-0.06); Absolute Basophil Count 0.02 10^3/uL (0.0-0.2); Absolute Eosinophil Count 0.05 10^3/uL (0.0-0.7); Absolute Lymphocyte Count 0.41 10^3/uL (1.2-3.4); Basophils % 0.2 %; Eosinophils % 0.5 %; HCT 32.5 % (36.0-46.0); HGB 10.6 g/dL (11.2-15.7); Immature Grans % 0.7 %; Lymphocytes % 4.5 %; MCH 27.7 pg (27.0-33.0); MCHC 32.6 % (32.0-36.0); MCV 85 fL (80-95); MPV 9.4 fL (8.0-11.0); Monocytes % 5.5 %; Neutrophils % 88.6 %; Platelet Count 175 10^3/uL (130-400); RBC 3.83 10^6/uL (3.93-5.22); RDW 12.7 % (11.7-14.6); RDW-SD 38.9 fL; WBC 9.14 10^3/uL (4.4-10.8)
[2024-03-12 16:07] LABS: Bilirubin Negative (Negative); Blood Negative (Negative); Clarity Clear (Clear); Glucose Negative (Negative); Ketones Negative (Negative); Leukocyte Esterase Trace (Negative); Nitrite Negative (Negative); Urobilinogen 0.2 mg/dL (Up to 0.2); pH 5.5 (5-8)
[2024-03-12 16:26] LABS: Epithelial Cells Few HPF (Negative); Other Cells Few Renal (Negative); RBC Negative HPF (0-2)
[2024-03-12 16:27] LABS: Bacteria Negative HPF (Negative); C & S Indicated? No; Casts Negative LPF (Negative); Crystals Negative HPF (Negative); Mucus Negative (Negative)
[2024-03-12 17:00] LABS: Iron 61 ug/dL (50-170); Total Iron Binding Capacity 218 ug/dL (250-450); Transferrin Sat 28 % (15-50)
[2024-03-12 17:01] LABS: Cholesterol 216 mg/dL (<200)
[2024-03-12 17:37] LABS: ALT 26 U/L (14-59); AST 17 U/L (15-37); Alkaline Phosphatase 64 U/L (46-116); Anion Gap 11.9 mmol/L (3-11); BUN 42 mg/dL (7-18); Bilirubin, Total 0.42 mg/dL (0.2-1.0); CO2 25.1 mmol/L (21.0-32.0); CREATININE 2.2 mg/dL (0.55-1.02); Calcium 9.1 mg/dL (8.5-10.1); Chloride 95 mmol/L (98-107); Estimated GFR 24.27 (mL/min/1.73m2); Glucose 175 mg/dL (74-106); Magnesium 1.4 mg/dL (1.8-2.4); Potassium 4.1 mmol/L (3.5-5.1); Sodium 132 mmol/L (136-145); Total Protein 6.7 g/dL (6.4-8.2); Vitamin B12 678 pg/mL (193-986)
[2024-03-12 17:40] LABS: Ferritin > 2000 ng/mL (8-252); Folate > 20.0 ng/mL (8.6-20.0)
[2024-03-12 17:49] LABS: PHOSPHORUS 3.5 mg/dL (2.6-4.7); Uric Acid 9.2 mg/dL (2.6-6.0)
[2024-03-14 12:50] LABS: Tacrolimus 16.5 ng/mL (See Note)
== END 2024-03-12 03:55 | disposition home or self-care (01) ==
LOC: LBO 03:54
PROVIDERS: PCP Nurse Practitioner Family; Visit Provider Internal Medicine Nephrology
DX: Z94.0 Kidney transplant status (principal); D64.9 Anemia, unspecified; Z94.83 Pancreas transplant status; Z79.899 Other long term (current) drug therapy; Z29.89 Encounter for other specified prophylactic measures
CPT/HCPCS: 36415; 80053; 80197; 81003; 81015; 82465; 82607; 82728; 82746; 83540; 83550; 83735; 84100; 84550; 85025

== ENCOUNTER 2024-04-09 02:54 | Outpatient (CLI) | payer MEDICARE, BC, SELFPAY ==
[2024-04-09 08:36] LABS: Abs Immature Grans 0.04 10^3/uL (0.0-0.06); Absolute Basophil Count 0.02 10^3/uL (0.0-0.2); Absolute Eosinophil Count 0.19 10^3/uL (0.0-0.7); Absolute Lymphocyte Count 0.51 10^3/uL (1.2-3.4); Absolute Monocyte Count 0.53 10^3/uL (0.1-0.8); Absolute Neutrophil Count 5.24 10^3/uL (1.2-6.7); Basophils % 0.3 %; Eosinophils % 2.9 %; HCT 29.5 % (36.0-46.0); Immature Grans % 0.6 %; Lymphocytes % 7.8 %; MCHC 33.9 % (32.0-36.0); MCV 83 fL (80-95); MPV 10.2 fL (8.0-11.0); Monocytes % 8.1 %; Neutrophils % 80.3 %; Platelet Count 136 10^3/uL (130-400); RBC 3.57 10^6/uL (3.93-5.22); RDW 12.5 % (11.7-14.6); WBC 6.53 10^3/uL (4.4-10.8)
[2024-04-09 08:39] LABS: Bilirubin Negative (Negative); Blood Negative (Negative); Clarity Sl Cloudy (Clear); Glucose Negative (Negative); Ketones Negative (Negative); Leukocyte Esterase Small (Negative); Nitrite Negative (Negative); Urobilinogen 0.2 mg/dL (Up to 0.2)
[2024-04-09 08:46] LABS: Bacteria Few HPF (Negative); C & S Indicated? No; Casts Negative LPF (Negative); Crystals Negative HPF (Negative); Epithelial Cells Few HPF (Negative); Mucus Trace (Negative); RBC 0-2 HPF (0-2)
[2024-04-09 08:54] LABS: ALT 21 U/L (14-59); AST 19 U/L (15-37); Albumin 3.8 g/dL (3.4-5.0); Alkaline Phosphatase 94 U/L (46-116); Anion Gap 11.3 mmol/L (3-11); BUN 57 mg/dL (7-18); Bilirubin, Total 0.54 mg/dL (0.2-1.0); CO2 25.7 mmol/L (21.0-32.0); CREATININE 2.7 mg/dL (0.55-1.02); Chloride 92 mmol/L (98-107); Cholesterol 181 mg/dL (<200); Estimated GFR 18.98 (mL/min/1.73m2); Glucose 141 mg/dL (74-106); Magnesium 0.9 mg/dL (1.8-2.4); Potassium 3.8 mmol/L (3.5-5.1); Sodium 129 mmol/L (136-145); Uric Acid 9.4 mg/dL (2.6-6.0)
[2024-04-09 09:02] LABS: Calcium 11.7 mg/dL (8.5-10.1)
[2024-04-09 09:16] LABS: COMMENT (LAB VIEW ONLY) 40.43 mg/dL; PROTEIN 14.3 mg/dL; Prot/Crea Ur Ratio 0.35
[2024-04-10 13:35] LABS: Tacrolimus 17.2 ng/mL (See Note)
== END 2024-04-09 02:55 | disposition home or self-care (01) ==
LOC: LBO 02:54
PROVIDERS: PCP Nurse Practitioner Family; Visit Provider Internal Medicine Nephrology
DX: Z94.0 Kidney transplant status (principal); Z94.83 Pancreas transplant status; Z79.899 Other long term (current) drug therapy; Z29.89 Encounter for other specified prophylactic measures
CPT/HCPCS: 36415; 80053; 80197; 81003; 81015; 82465; 82565; 83735; 84100; 84156; 84550; 85025

== ENCOUNTER 2024-05-05 11:25 | Outpatient (CLI) | payer MEDICARE, BC, SELFPAY ==
[2024-05-05 09:13] LABS: Abs Immature Grans 0.03 10^3/uL (0.0-0.06); Absolute Basophil Count 0.03 10^3/uL (0.0-0.2); Absolute Eosinophil Count 0.18 10^3/uL (0.0-0.7); Absolute Monocyte Count 0.57 10^3/uL (0.1-0.8); Absolute Neutrophil Count 4.11 10^3/uL (1.2-6.7); Basophils % 0.6 %; Eosinophils % 3.4 %; HCT 30.2 % (36.0-46.0); HGB 10.1 g/dL (11.2-15.7); Immature Grans % 0.6 %; Lymphocytes % 7.5 %; MCHC 33.4 % (32.0-36.0); MCV 84 fL (80-95); Monocytes % 10.7 %; Neutrophils % 77.2 %; Platelet Count 159 10^3/uL (130-400); RBC 3.61 10^6/uL (3.93-5.22); RDW 12.8 % (11.7-14.6); RDW-SD 38.7 fL; WBC 5.32 10^3/uL (4.4-10.8)
[2024-05-05 09:14] LABS: Bilirubin Negative (Negative); Blood Negative (Negative); Clarity Clear (Clear); Glucose Negative (Negative); Ketones Negative (Negative); Leukocyte Esterase Trace (Negative); Nitrite Negative (Negative); Urobilinogen 0.2 mg/dL (Up to 0.2)
[2024-05-05 09:22] LABS: WBC 0-2 HPF (0-5)
[2024-05-05 09:23] LABS: Bacteria Negative HPF (Negative); C & S Indicated? No; Crystals Negative HPF (Negative); Epithelial Cells Few HPF (Negative); Mucus Negative (Negative); RBC Negative HPF (0-2)
[2024-05-05 09:42] LABS: ALT 21 U/L (14-59); AST 17 U/L (15-37); Albumin 3.8 g/dL (3.4-5.0); Alkaline Phosphatase 55 U/L (46-116); Anion Gap 10.1 mmol/L (3-11); BUN 34 mg/dL (7-18); Bilirubin, Total 0.68 mg/dL (0.2-1.0); CO2 26.9 mmol/L (21.0-32.0); CREATININE 2.6 mg/dL (0.55-1.02); Calcium 9.2 mg/dL (8.5-10.1); Chloride 92 mmol/L (98-107); Estimated GFR 19.74 (mL/min/1.73m2); Glucose 137 mg/dL (74-106); Magnesium 1.2 mg/dL (1.8-2.4); Sodium 129 mmol/L (136-145); Total Protein 6.8 g/dL (6.4-8.2)
[2024-05-05 09:45] LABS: Cholesterol 236 mg/dL (<200)
[2024-05-05 09:58] LABS: PHOSPHORUS 3.8 mg/dL (2.6-4.7); Uric Acid 8.2 mg/dL (2.6-6.0)
[2024-05-05 10:44] LABS: PROTEIN 14.1 mg/dL; Prot/Crea Ur Ratio 0.62
[2024-05-06 10:11] LABS: Tacrolimus 18.9 ng/mL (See Note)
[2024-05-07 14:22] LABS: Iron 63 ug/dL (50-170); Total Iron Binding Capacity 217 ug/dL (250-450); Transferrin Sat 29 % (15-50)
[2024-05-07 15:09] LABS: Ferritin > 2000 ng/mL (8-252)
[2024-05-07 22:42] LABS: Folate 13.9 ng/mL (See Note); Vitamin B12 733 pg/mL (211-911)
== END 2024-05-05 11:26 | disposition home or self-care (01) ==
LOC: LBO 11:25
PROVIDERS: PCP Nurse Practitioner Family; Visit Provider Internal Medicine Nephrology
DX: Z94.0 Kidney transplant status (principal); Z94.83 Pancreas transplant status; Z79.899 Other long term (current) drug therapy; Z29.89 Encounter for other specified prophylactic measures; D50.8 Other iron deficiency anemias
CPT/HCPCS: 36415; 80053; 80197; 81003; 81015; 82465; 82565; 82607; 82728; 82746; 83540; 83550; 83735; 84100; 84156; 84550; 85025

== ENCOUNTER 2024-06-09 02:27 | Outpatient (CLI) | payer MEDICARE, BC, SELFPAY ==
[2024-06-09 09:38] LABS: Abs Immature Grans 0.03 10^3/uL (0.0-0.06); Absolute Basophil Count 0.03 10^3/uL (0.0-0.2); Absolute Eosinophil Count 0.17 10^3/uL (0.0-0.7); Absolute Monocyte Count 0.59 10^3/uL (0.1-0.8); Absolute Neutrophil Count 5.23 10^3/uL (1.2-6.7); Basophils % 0.5 %; Eosinophils % 2.6 %; HCT 32.8 % (36.0-46.0); HGB 10.8 g/dL (11.2-15.7); Immature Grans % 0.5 %; MCH 27.9 pg (27.0-33.0); MCHC 32.9 % (32.0-36.0); MCV 85 fL (80-95); MPV 9.9 fL (8.0-11.0); Monocytes % 8.9 %; Neutrophils % 78.5 %; Platelet Count 166 10^3/uL (130-400); RBC 3.87 10^6/uL (3.93-5.22); WBC 6.65 10^3/uL (4.4-10.8)
[2024-06-09 09:41] LABS: Bilirubin Negative (Negative); Blood Negative (Negative); Clarity Clear (Clear); Glucose Negative (Negative); Ketones Negative (Negative); Leukocyte Esterase Moderate (Negative); Nitrite Negative (Negative); Urobilinogen 0.2 mg/dL (Up to 0.2)
[2024-06-09 09:50] LABS: Bacteria Rare HPF (Negative); Epithelial Cells Many HPF (Negative); Other Cells Moderate Renal (Negative); RBC Negative HPF (0-2); WBC 0-2 HPF (0-5)
[2024-06-09 09:51] LABS: C & S Indicated? No/Sq. Contamination; Crystals Negative HPF (Negative); Mucus Trace (Negative)
[2024-06-09 09:57] LABS: ALT 16 U/L (14-59); AST 18 U/L (15-37); Albumin 3.9 g/dL (3.4-5.0); Alkaline Phosphatase 66 U/L (46-116); Anion Gap 10.6 mmol/L (3-11); BUN 28 mg/dL (7-18); CO2 26.4 mmol/L (21.0-32.0); CREATININE 2.4 mg/dL (0.55-1.02); Calcium 9.2 mg/dL (8.5-10.1); Chloride 91 mmol/L (98-107); Cholesterol 224 mg/dL (<200); Estimated GFR 21.73 (mL/min/1.73m2); Glucose 159 mg/dL (74-106); Magnesium 1.4 mg/dL (1.8-2.4); PHOSPHORUS 4.1 mg/dL (2.6-4.7); Potassium 3.8 mmol/L (3.5-5.1); Sodium 128 mmol/L (136-145); Total Protein 7.2 g/dL (6.4-8.2); Uric Acid 6.6 mg/dL (2.6-6.0)
[2024-06-09 10:08] LABS: COMMENT (LAB VIEW ONLY) 56.38 mg/dL; PROTEIN 29.6 mg/dL; Prot/Crea Ur Ratio 0.52
[2024-06-09 11:44] LABS: Lab Add On Test DONE
[2024-06-09 14:27] LABS: Hemoglobin A1C 6.4 % (<5.7)
[2024-06-10 10:55] LABS: Tacrolimus 15.9 ng/mL (See Note)
== END 2024-06-09 02:28 | disposition home or self-care (01) ==
PROVIDERS: PCP Nurse Practitioner Family; Visit Provider Internal Medicine Nephrology
DX: Z94.0 Kidney transplant status (principal); R73.03 Prediabetes
CPT/HCPCS: 36415; 80053; 80197; 81003; 81015; 82465; 82565; 83036; 83735; 84100; 84156; 84550; 85025

== ENCOUNTER 2024-06-18 02:56 | Outpatient (CLI) | payer MEDICARE, BC, SELFPAY ==
--- NOTE | 2024-06-18 06:30 | DI.US_ITS ---
Exam(s) US THYROID EXAM: US THYROID CLINICAL HISTORY: reassess multinodular goiter,e04.2. TECHNIQUE: Ultrasound thyroid performed using standard protocol. COMPARISON: US US THYROID from 05/22/2022 FINDINGS: ISTHMUS: 3.1 mm RIGHT LOBE: Size: 5.8 x 2.2 x 2.7 cm Echogenicity: Normal. Vascularity: Normal. Nodules: There is a solid isoechoic nodule in the upper pole measuring 1.0 x 0.8 x 0.9 cm. This comp lazarus to 1.1 x 1.2 x 1.1 cm on the prior examination. There is a mixed cystic and solid lesion in the midpole measuring 1.0 x 0.7 x 0.7 cm. This is a TI rads 4 level nodule. Due to its size, follow-up is recommended. Previously this area measured 1.4 x 1.4 x 1.3 cm. There is a mixed isoechoic nodul e in the inferior pole measuring 0.9 x 0.9 x 1.0 cm. It is a TI rads level 4 nodule. Due to its siz e, follow-up is recommended. This compares to 1.6 x 1.4 x 1.3 cm on the prior examination. LEFT LOBE: Size: 6.1 x 2.6 x 2.9 cm Echogenicity: Normal. Vascularity: Normal. Nodules: There is a mixed isoechoic nodule measuring 1.2 x 0.7 x 0.7 cm. This is consistent with a T I rads level 4 nodule. Due to its size, follow-up is recommended. No nodules are seen in the left l obe to warrant biopsy. OTHER FINDINGS: None. IMPRESSION: Multinodular thyroid gland. No nodules are seen to warrant biopsy. DATA REPOSITORY:
== END 2024-06-18 03:16 ==
LOC: DI 02:56
PROVIDERS: PCP Nurse Practitioner Family; Visit Provider Nurse Practitioner Family
DX: E04.2 Nontoxic multinodular goiter (principal)
CPT/HCPCS: 76536

== ENCOUNTER 2024-06-19 02:47 | Outpatient (CLI) | payer MEDICARE, BC, SELFPAY ==
[2024-06-20 13:11] LABS: Tacrolimus >30.0 ng/mL (See Note)
== END 2024-06-19 02:48 | disposition home or self-care (01) ==
LOC: LBO 02:47
PROVIDERS: Nurse Practitioner Family; PCP Nurse Practitioner Family; Visit Provider Internal Medicine Nephrology
DX: Z94.0 Kidney transplant status (principal); Z48.298 Encounter for aftercare following other organ transplant; T86.19 Other complication of kidney transplant; Z79.52 Long term (current) use of systemic steroids; Z29.89 Encounter for other specified prophylactic measures
CPT/HCPCS: 36415; 80197

== ENCOUNTER 2024-08-06 01:06 | Outpatient (CLI) | payer MEDICARE, BC, SELFPAY ==
[2024-08-06 11:56] LABS: Abs Immature Grans 0.01 10^3/uL (0.0-0.06); Absolute Basophil Count 0.02 10^3/uL (0.0-0.2); Absolute Eosinophil Count 0.06 10^3/uL (0.0-0.7); Absolute Lymphocyte Count 0.35 10^3/uL (1.2-3.4); Absolute Neutrophil Count 5.49 10^3/uL (1.2-6.7); Basophils % 0.3 %; HCT 32.4 % (36.0-46.0); HGB 10.7 g/dL (11.2-15.7); Immature Grans % 0.2 %; Lymphocytes % 5.7 %; MCH 28.1 pg (27.0-33.0); MCV 85 fL (80-95); MPV 9.3 fL (8.0-11.0); Monocytes % 3.3 %; Neutrophils % 89.5 %; Platelet Count 206 10^3/uL (130-400); RBC 3.81 10^6/uL (3.93-5.22); RDW 13.2 % (11.7-14.6); WBC 6.13 10^3/uL (4.4-10.8)
[2024-08-06 12:13] LABS: Cholesterol 239 mg/dL (<200)
[2024-08-06 12:17] LABS: ALT 28 U/L (14-59); AST 23 U/L (15-37); Alkaline Phosphatase 92 U/L (46-116); Anion Gap 7.4 mmol/L (3-11); BUN 34 mg/dL (7-18); Bilirubin, Total 0.42 mg/dL (0.2-1.0); CO2 29.6 mmol/L (21.0-32.0); CREATININE 2.2 mg/dL (0.55-1.02); Calcium 9.5 mg/dL (8.5-10.1); Chloride 94 mmol/L (98-107); Estimated GFR 24.12 (mL/min/1.73m2); Glucose 195 mg/dL (74-106); Magnesium 1.4 mg/dL (1.8-2.4); PHOSPHORUS 3.2 mg/dL (2.6-4.7); Potassium 4.8 mmol/L (3.5-5.1); Sodium 131 mmol/L (136-145); Uric Acid 6.4 mg/dL (2.6-6.0)
[2024-08-06 12:25] LABS: Bilirubin Negative (Negative); Blood Negative (Negative); Clarity Clear (Clear); Glucose Negative (Negative); Ketones Negative (Negative); Leukocyte Esterase Small (Negative); Nitrite Negative (Negative); Urobilinogen 0.2 mg/dL (Up to 0.2); pH 6.5 (5-8)
[2024-08-06 12:43] LABS: Epithelial Cells Moderate HPF (Negative); RBC 0-2 HPF (0-2)
[2024-08-06 12:44] LABS: Bacteria Rare HPF (Negative); C & S Indicated? No; Casts Negative LPF (Negative); Crystals Negative HPF (Negative); Mucus Negative (Negative); Other Cells Few Transitional (Negative)
[2024-08-06 13:14] LABS: COMMENT (LAB VIEW ONLY) 24.04 mg/dL; PROTEIN 16.8 mg/dL; Prot/Crea Ur Ratio 0.69
[2024-08-07 12:50] LABS: Tacrolimus 11.6 ng/mL (See Note)
== END 2024-08-06 01:07 | disposition home or self-care (01) ==
LOC: LBO 01:06
PROVIDERS: PCP Nurse Practitioner Family; Visit Provider Internal Medicine Nephrology
DX: Z94.0 Kidney transplant status (principal); Z48.298 Encounter for aftercare following other organ transplant; T86.19 Other complication of kidney transplant; Z79.52 Long term (current) use of systemic steroids; Z29.89 Encounter for other specified prophylactic measures; Z94.83 Pancreas transplant status; Z79.899 Other long term (current) drug therapy
CPT/HCPCS: 36415; 80053; 80197; 81003; 81015; 82465; 82565; 83735; 84100; 84156; 84550; 85025

== ENCOUNTER 2024-08-14 02:31 | Outpatient (CLI) | payer MEDICARE, BC, SELFPAY ==
--- NOTE | 2024-08-14 07:45 | DI.DEXA_ITS ---
Exam(s) XR DEXA BONE DENSITY W/WO CAMILA EXAM: XR DEXA BONE DENSITY W/WO CAMILA CLINICAL HISTORY: osteoporosis screening,POSTMENOPAUSAL STATUS,Z78.0 TECHNIQUE: [employer] Horizon C densitometer analysis of left hip, lumbar spine and left forearm. Lat eral survey image of the thoracic and lumbar spine. COMPARISON: CR XR LINE PLACEMENT PICC/CVA from 05/17/2023 FINDINGS: Lateral view of the thoracic and lumbar spine shows no evidence of compression fractures. Bone mineral density measurements of the lumbar spine correspond to a total T-score of -1.6, in the osteopenic range. Bone mineral density measurements of the left hip correspond to a total T-score of -2.1. The femora l neck T-score is -2.6, in the osteoporotic range.. Theleft forearm bone mineral density measurements correspond to a T-score of the distal 3rd of -3.0, in the osteoporotic range.. IMPRESSION: Osteopenia of the lumbar spine. Osteoporosis of the hip and forearm.
--- NOTE | 2024-08-14 07:52 | DI.MAMMO_ITS ---
Exam(s) MAMMO SCREENING EXAM: MAMMO SCREENING CLINICAL HISTORY: screening,Z12.39. TECHNIQUE: Bilateral full field digital CC and MLO mammographic images were obtained with 3D tomosyn thesis and utilizing computer aided detection (CAD). COMPARISON: Prior mammograms were reviewed. FINDINGS: There has been no significant change in the appearance and distribution of the fibroglandular tissue. No CAD designations. There are no new spiculated masses nor malignant appearing microcalcification groups. There is no significant architectural distortion nor skin thickening-retraction. IMPRESSION: No radiographic evidence of malignancy. BI-RADS Category 1 - Negative Breast Density - Category C - Heterogeneously dense Breast density Category C or D implies that the patient has dense breast tissue. Dense breast tissue can make it harder to find cancer on a mammogram. Dense breast tissue is also associated with an incr eased risk of breast cancer. This information about the result of the mammogram report was provided to the patient to raise their awareness. Use this report when you speak with the patient about their risks for breast cancer, which includes their family history. At that time, you may recommend additional screening tests (Ultrasoun d or MRI) as these tests may add significant information. A negative radiographic report should not delay biopsy if a dominant or clinically suspicious mass is present. Up to ten percent of cancers are not identified on mammography. A negative report may reinforce clinical impression. Adenosis and dense breasts may obscure an underlying neoplasm. False positive reports average 6 to 10%. Patient will receive a letter notifying them of these results.
== END 2024-08-14 02:51 ==
LOC: DI 02:31
PROVIDERS: PCP Nurse Practitioner Family; Visit Provider Nurse Practitioner Family
DX: Z12.31 Encounter for screening mammogram for malignant neoplasm of breast (principal); Z78.0 Asymptomatic menopausal state; Z13.820 Encounter for screening for osteoporosis; M85.89 Other specified disorders of bone density and structure, multiple sites
CPT/HCPCS: 77063; 77067; 77080

== ENCOUNTER 2024-09-08 04:14 | Outpatient (CLI) | payer MEDICARE, BC, SELFPAY ==
[2024-09-08 09:55] LABS: Abs Immature Grans 0.03 10^3/uL (0.0-0.06); Absolute Basophil Count 0.03 10^3/uL (0.0-0.2); Absolute Eosinophil Count 0.31 10^3/uL (0.0-0.7); Absolute Lymphocyte Count 0.58 10^3/uL (1.2-3.4); Absolute Monocyte Count 0.53 10^3/uL (0.1-0.8); Absolute Neutrophil Count 4.32 10^3/uL (1.2-6.7); Basophils % 0.5 %; Eosinophils % 5.3 %; HCT 33.6 % (36.0-46.0); HGB 11.1 g/dL (11.2-15.7); Immature Grans % 0.5 %; MCH 28.1 pg (27.0-33.0); MCV 85 fL (80-95); Monocytes % 9.1 %; Neutrophils % 74.6 %; Platelet Count 159 10^3/uL (130-400); RBC 3.95 10^6/uL (3.93-5.22); RDW 13.2 % (11.7-14.6); RDW-SD 41.1 fL
[2024-09-08 10:04] LABS: Bilirubin Negative (Negative); Blood Small (Negative); Clarity Clear (Clear); Glucose Negative (Negative); Ketones Negative (Negative); Leukocyte Esterase Trace (Negative); Nitrite Negative (Negative); Urobilinogen 0.2 mg/dL (Up to 0.2)
[2024-09-08 10:13] LABS: Bacteria Rare HPF (Negative); C & S Indicated? No; Casts Negative LPF (Negative); Crystals Negative HPF (Negative); Epithelial Cells Rare HPF (Negative); Mucus Moderate (Negative); Other Cells Negative (Negative); WBC 0-2 HPF (0-5)
[2024-09-08 10:16] LABS: COMMENT (LAB VIEW ONLY) 15.48 mg/dL; PROTEIN 13.6 mg/dL; Prot/Crea Ur Ratio 0.87
[2024-09-08 10:22] LABS: ALT 31 U/L (14-59); AST 21 U/L (15-37); Albumin 3.8 g/dL (3.4-5.0); Alkaline Phosphatase 92 U/L (46-116); Anion Gap 8.6 mmol/L (3-11); BUN 35 mg/dL (7-18); Bilirubin, Total 0.8 mg/dL (0.2-1.0); CO2 29.4 mmol/L (21.0-32.0); CREATININE 1.8 mg/dL (0.55-1.02); Calcium 9.3 mg/dL (8.5-10.1); Chloride 101 mmol/L (98-107); Estimated GFR 30.69 (mL/min/1.73m2); Glucose 105 mg/dL (74-106); Magnesium 1.6 mg/dL (1.8-2.4); PHOSPHORUS 4.2 mg/dL (2.6-4.7); Sodium 139 mmol/L (136-145); Uric Acid 7.4 mg/dL (2.6-6.0)
[2024-09-08 10:31] LABS: Cholesterol 187 mg/dL (<200)
[2024-09-09 10:29] LABS: Tacrolimus 8.7 ng/mL (See Note)
== END 2024-09-08 04:15 | disposition home or self-care (01) ==
LOC: LBO 04:15
PROVIDERS: PCP Nurse Practitioner Family; Visit Provider Internal Medicine Nephrology
DX: Z94.0 Kidney transplant status (principal); Z48.298 Encounter for aftercare following other organ transplant; T86.19 Other complication of kidney transplant; Z79.52 Long term (current) use of systemic steroids; Z29.89 Encounter for other specified prophylactic measures; Z79.899 Other long term (current) drug therapy
CPT/HCPCS: 36415; 80053; 80197; 81003; 81015; 82465; 82565; 83735; 84100; 84156; 84550; 85025

== ENCOUNTER 2024-09-30 02:08 | Outpatient (CLI) | payer MEDICARE, BC, SELFPAY ==
[2024-09-30 08:23] LABS: Bilirubin Negative (Negative); Blood Negative (Negative); Clarity Clear (Clear); Glucose Negative (Negative); Ketones Negative (Negative); Leukocyte Esterase Small (Negative); Nitrite Negative (Negative); Urobilinogen 0.2 mg/dL (Up to 0.2); pH 6.5 (5-8)
[2024-09-30 08:25] LABS: Abs Immature Grans 0.02 10^3/uL (0.0-0.06); Absolute Basophil Count 0.02 10^3/uL (0.0-0.2); Absolute Eosinophil Count 0.28 10^3/uL (0.0-0.7); Absolute Lymphocyte Count 0.53 10^3/uL (1.2-3.4); Absolute Monocyte Count 0.54 10^3/uL (0.1-0.8); Absolute Neutrophil Count 4.47 10^3/uL (1.2-6.7); Basophils % 0.3 %; Eosinophils % 4.8 %; HCT 32.4 % (36.0-46.0); HGB 10.7 g/dL (11.2-15.7); Immature Grans % 0.3 %; MCH 28.1 pg (27.0-33.0); MCV 85 fL (80-95); MPV 10.4 fL (8.0-11.0); Monocytes % 9.2 %; Neutrophils % 76.4 %; Platelet Count 170 10^3/uL (130-400); RBC 3.81 10^6/uL (3.93-5.22); RDW-SD 39.8 fL; WBC 5.86 10^3/uL (4.4-10.8)
[2024-09-30 08:37] LABS: Bacteria Few HPF (Negative); C & S Indicated? No; Casts Negative LPF (Negative); Crystals Negative HPF (Negative); Epithelial Cells Many HPF (Negative); Mucus Negative (Negative); RBC 0-2 HPF (0-2)
[2024-09-30 08:42] LABS: Cholesterol 204 mg/dL (<200)
[2024-09-30 08:47] LABS: ALT 22 U/L (14-59); AST 20 U/L (15-37); Albumin 3.6 g/dL (3.4-5.0); Alkaline Phosphatase 92 U/L (46-116); BUN 38 mg/dL (7-18); Bilirubin, Total 0.6 mg/dL (0.2-1.0); CREATININE 1.9 mg/dL (0.55-1.02); Calcium 9.5 mg/dL (8.5-10.1); Chloride 98 mmol/L (98-107); Estimated GFR 28.76 (mL/min/1.73m2); Glucose 139 mg/dL (74-106); Magnesium 1.6 mg/dL (1.8-2.4); PHOSPHORUS 4.2 mg/dL (2.6-4.7); Potassium 3.6 mmol/L (3.5-5.1); Sodium 137 mmol/L (136-145); Total Protein 6.9 g/dL (6.4-8.2); Uric Acid 7.4 mg/dL (2.6-6.0)
[2024-09-30 09:59] LABS: COMMENT (LAB VIEW ONLY) 20.22 mg/dL; PROTEIN 13.6 mg/dL; Prot/Crea Ur Ratio 0.67
[2024-10-01 13:13] LABS: Tacrolimus 8.9 ng/mL (See Note)
== END 2024-09-30 02:09 | disposition home or self-care (01) ==
LOC: LBO 02:09
PROVIDERS: PCP Nurse Practitioner Family; Visit Provider Internal Medicine Nephrology
DX: Z94.0 Kidney transplant status (principal); Z48.298 Encounter for aftercare following other organ transplant; T86.19 Other complication of kidney transplant; Z79.52 Long term (current) use of systemic steroids; Z29.89 Encounter for other specified prophylactic measures; Z79.899 Other long term (current) drug therapy
CPT/HCPCS: 36415; 80053; 80197; 81003; 81015; 82465; 82565; 83735; 84100; 84156; 84550; 85025

== ENCOUNTER 2024-11-06 01:49 | Outpatient (CLI) | payer MEDICARE, BC, SELFPAY ==
[2024-11-06 09:18] LABS: Abs Immature Grans 0.01 10^3/uL (0.0-0.06); Absolute Basophil Count 0.02 10^3/uL (0.0-0.2); Absolute Eosinophil Count 0.21 10^3/uL (0.0-0.7); Absolute Lymphocyte Count 0.52 10^3/uL (1.2-3.4); Absolute Monocyte Count 0.41 10^3/uL (0.1-0.8); Absolute Neutrophil Count 4.35 10^3/uL (1.2-6.7); Basophils % 0.4 %; Eosinophils % 3.8 %; HCT 35.2 % (36.0-46.0); HGB 11.4 g/dL (11.2-15.7); Immature Grans % 0.2 %; Lymphocytes % 9.4 %; MCH 27.7 pg (27.0-33.0); MCHC 32.4 % (32.0-36.0); MCV 86 fL (80-95); MPV 9.9 fL (8.0-11.0); Monocytes % 7.4 %; Neutrophils % 78.8 %; Platelet Count 181 10^3/uL (130-400); RBC 4.11 10^6/uL (3.93-5.22); RDW-SD 39.8 fL; WBC 5.52 10^3/uL (4.4-10.8)
[2024-11-06 09:22] LABS: Bilirubin Negative (Negative); Blood Negative (Negative); Clarity Clear (Clear); Glucose Negative (Negative); Ketones Negative (Negative); Leukocyte Esterase Trace (Negative); Nitrite Negative (Negative); Urobilinogen 0.2 mg/dL (Up to 0.2)
[2024-11-06 09:29] LABS: WBC 0-2 HPF (0-5)
[2024-11-06 09:30] LABS: Bacteria Negative HPF (Negative); C & S Indicated? No; Casts 0-2 Hyaline LPF (Negative); Crystals Negative HPF (Negative); Epithelial Cells Few HPF (Negative); Mucus Negative (Negative); Other Cells Few Renal (Negative); RBC Negative HPF (0-2)
[2024-11-06 09:43] LABS: COMMENT (LAB VIEW ONLY) 36.55 mg/dL; PROTEIN 37.9 mg/dL; Prot/Crea Ur Ratio 1.03
[2024-11-06 09:47] LABS: ALT 27 U/L (14-59); AST 24 U/L (15-37); Albumin 3.8 g/dL (3.4-5.0); Alkaline Phosphatase 125 U/L (46-116); Anion Gap 7.2 mmol/L (3-11); BUN 31 mg/dL (7-18); Bilirubin, Total 0.5 mg/dL (0.2-1.0); CO2 29.8 mmol/L (21.0-32.0); CREATININE 1.7 mg/dL (0.55-1.02); Calcium 8.8 mg/dL (8.5-10.1); Chloride 100 mmol/L (98-107); Cholesterol 169 mg/dL (<200); Estimated GFR 32.87 (mL/min/1.73m2); Glucose 132 mg/dL (74-106); Magnesium 1.1 mg/dL (1.8-2.4); Potassium 3.9 mmol/L (3.5-5.1); Sodium 137 mmol/L (136-145); Total Protein 7.2 g/dL (6.4-8.2); Uric Acid 7.3 mg/dL (2.6-6.0)
[2024-11-07 13:25] LABS: Tacrolimus 13.4 ng/mL (See Note)
== END 2024-11-06 01:50 | disposition home or self-care (01) ==
LOC: LBO 01:49
PROVIDERS: PCP Nurse Practitioner Family; Visit Provider Internal Medicine Nephrology
DX: Z94.0 Kidney transplant status (principal); Z48.298 Encounter for aftercare following other organ transplant; T86.19 Other complication of kidney transplant; Z79.52 Long term (current) use of systemic steroids; Z29.89 Encounter for other specified prophylactic measures; Z79.899 Other long term (current) drug therapy
CPT/HCPCS: 36415; 80053; 80197; 81003; 81015; 82465; 82565; 83735; 84100; 84156; 84550; 85025

== ENCOUNTER 2024-12-04 03:21 | Outpatient (CLI) | payer MEDICARE, BC, SELFPAY ==
[2024-12-04 09:43] LABS: Abs Immature Grans 0.04 10^3/uL (0.0-0.06); Absolute Basophil Count 0.02 10^3/uL (0.0-0.2); Absolute Eosinophil Count 0.17 10^3/uL (0.0-0.7); Absolute Lymphocyte Count 0.38 10^3/uL (1.2-3.4); Absolute Monocyte Count 0.67 10^3/uL (0.1-0.8); Absolute Neutrophil Count 4.72 10^3/uL (1.2-6.7); Basophils % 0.3 %; Eosinophils % 2.8 %; HCT 31.2 % (36.0-46.0); HGB 10.3 g/dL (11.2-15.7); Immature Grans % 0.7 %; Lymphocytes % 6.3 %; MCH 27.9 pg (27.0-33.0); MCV 85 fL (80-95); MPV 9.3 fL (8.0-11.0); Monocytes % 11.2 %; Neutrophils % 78.7 %; Platelet Count 175 10^3/uL (130-400); RBC 3.69 10^6/uL (3.93-5.22); RDW 12.7 % (11.7-14.6); RDW-SD 38.9 fL
[2024-12-04 10:19] LABS: Bilirubin Negative (Negative); Blood Negative (Negative); Clarity Clear (Clear); Glucose Negative (Negative); Ketones Negative (Negative); Leukocyte Esterase Small (Negative); Nitrite Negative (Negative); Urobilinogen 0.2 mg/dL (Up to 0.2)
[2024-12-04 10:23] LABS: COMMENT (LAB VIEW ONLY) 18.71 mg/dL; PROTEIN 17.3 mg/dL; Prot/Crea Ur Ratio 0.92
[2024-12-04 10:28] LABS: ALT 22 U/L (14-59); AST 22 U/L (15-37); Albumin 3.3 g/dL (3.4-5.0); Alkaline Phosphatase 91 U/L (46-116); Anion Gap 8.7 mmol/L (3-11); BUN 20 mg/dL (7-18); Bilirubin, Total 0.5 mg/dL (0.2-1.0); CO2 28.3 mmol/L (21.0-32.0); CREATININE 1.6 mg/dL (0.55-1.02); Calcium 8.3 mg/dL (8.5-10.1); Chloride 96 mmol/L (98-107); Estimated GFR 35.35 (mL/min/1.73m2); Glucose 107 mg/dL (74-106); Magnesium 1.2 mg/dL (1.8-2.4); PHOSPHORUS 3.3 mg/dL (2.6-4.7); Sodium 133 mmol/L (136-145); Total Protein 6.1 g/dL (6.4-8.2); Uric Acid 5.7 mg/dL (2.6-6.0)
[2024-12-04 10:30] LABS: Bacteria Rare HPF (Negative); C & S Indicated? No; Casts Negative LPF (Negative); Crystals Negative HPF (Negative); Epithelial Cells Rare HPF (Negative); Mucus Negative (Negative); Other Cells Negative (Negative); RBC Negative HPF (0-2)
[2024-12-04 10:32] LABS: Cholesterol 154 mg/dL (<200)
[2024-12-05 11:35] LABS: Tacrolimus 11.6 ng/mL (See Note)
== END 2024-12-04 03:22 | disposition home or self-care (01) ==
LOC: LBO 03:21
PROVIDERS: PCP Nurse Practitioner Family; Visit Provider Internal Medicine Nephrology
DX: Z94.0 Kidney transplant status (principal); Z79.899 Other long term (current) drug therapy
CPT/HCPCS: 36415; 80053; 80197; 81003; 81015; 82465; 82565; 83735; 84100; 84156; 84550; 85025

== ENCOUNTER 2025-03-11 14:53 | Outpatient (REF) | payer MEDICARE, MEDICAID, SELFPAY | END 2025-03-11 14:54 | disposition home or self-care (01) | LOC: LBN 14:53 | PROVIDERS: PCP Nurse Practitioner Family; Visit Provider Obstetrics & Gynecology | DX: Z12.4 Encounter for screening for malignant neoplasm of cervix (principal) | CPT/HCPCS: 88142; 87624 ==

== ENCOUNTER 2025-03-27 04:01 | Outpatient (CLI) | payer MEDICARE, MEDICAID, SELFPAY ==
[2025-03-27 07:53] LABS: Abs Immature Grans 0.02 10^3/uL (0.0-0.06); HCT 33.1 % (36.0-46.0); HGB 10.8 g/dL (11.2-15.7); Immature Grans % 0.3 %; MCH 28.2 pg (27.0-33.0); MCHC 32.6 % (32.0-36.0); MCV 86 fL (80-95); MPV 10.1 fL (8.0-11.0); Platelet Count 152 10^3/uL (130-400); RBC 3.83 10^6/uL (3.93-5.22); RDW 13.0 % (11.7-14.6); RDW-SD 40.4 fL; WBC 6.54 10^3/uL (4.4-10.8)
[2025-03-27 08:08] LABS: Glucose Negative (Negative); PROTEIN 22.5 mg/dL; Prot/Crea Ur Ratio 0.68
[2025-03-27 08:12] LABS: Cholesterol 184 mg/dL (<200)
[2025-03-27 08:17] LABS: C & S Indicated? No; RBC Negative HPF (0-2); WBC 0-2 HPF (0-5)
[2025-03-27 08:29] LABS: ALT 27 U/L (14-59); AST 20 U/L (15-37); Albumin 3.8 g/dL (3.4-5.0); Alkaline Phosphatase 83 U/L (46-116); Anion Gap 11.4 mmol/L (3-11); BUN 32 mg/dL (7-18); Bilirubin, Total 0.5 mg/dL (0.2-1.0); CO2 26.6 mmol/L (21.0-32.0); Calcium 8.2 mg/dL (8.5-10.1); Chloride 101 mmol/L (98-107); Estimated GFR 32.87 (mL/min/1.73m2); Glucose 188 mg/dL (74-106); Magnesium 1.7 mg/dL (1.8-2.4); Potassium 3.9 mmol/L (3.5-5.1); Sodium 139 mmol/L (136-145); Total Protein 6.8 g/dL (6.4-8.2); Uric Acid 6.4 mg/dL (2.6-6.0)
== END 2025-03-27 04:02 | disposition home or self-care (01) ==
LOC: LBO 04:01
PROVIDERS: PCP Nurse Practitioner Family; Visit Provider Nurse Practitioner Family
DX: Z79.899 Other long term (current) drug therapy (principal); Z94.0 Kidney transplant status; Z94.83 Pancreas transplant status
CPT/HCPCS: 36415; 80053; 80197; 81003; 81015; 82465; 82565; 83735; 84100; 84156; 84550; 85025; 87799

== ENCOUNTER 2025-06-26 00:21 | Outpatient (CLI) | payer MEDICARE, SELFPAY ==
[2025-06-26 10:50] LABS: Abs Immature Grans 0.03 10^3/uL (0.0-0.06); HCT 34.1 % (36.0-46.0); HGB 11.1 g/dL (11.2-15.7); Immature Grans % 0.4 %; MCH 27.9 pg (27.0-33.0); MCHC 32.6 % (32.0-36.0); MCV 86 fL (80-95); MPV 10.6 fL (8.0-11.0); Platelet Count 170 10^3/uL (130-400); RBC 3.98 10^6/uL (3.93-5.22); RDW 13.2 % (11.7-14.6); RDW-SD 41.0 fL; WBC 7.04 10^3/uL (4.4-10.8)
[2025-06-26 10:53] LABS: Glucose Negative (Negative)
[2025-06-26 11:50] LABS: Uric Acid 6.5 mg/dL (3.1-7.8)
[2025-06-26 11:51] LABS: Magnesium 1.7 mg/dL (1.6-2.6)
[2025-06-26 11:53] LABS: ALT 22 U/L (10-49); AST 33 U/L (<34); Albumin 4.3 g/dL (3.2-5.0); Alkaline Phosphatase 90 U/L (46-116); Anion Gap 7.8 mmol/L (3-11); BUN 29 mg/dL (9-23); Bilirubin, Total 0.3 mg/dL (0.2-1.2); CO2 27.9 mmol/L (20.0-31.0); Calcium 9.1 mg/dL (8.3-10.6); Chloride 99 mmol/L (98-107); Glucose 124 mg/dL (74-106); Potassium 4.0 mmol/L (3.5-5.1); Sodium 135 mmol/L (136-145); Total Protein 7.0 g/dL (5.7-8.2)
[2025-06-26 12:43] LABS: Prot/Crea Ur Ratio 0.39 mg/mg Cr
[2025-06-26 12:44] LABS: Cholesterol 191 mg/dL (<200)
== END 2025-06-26 00:22 | disposition home or self-care (01) ==
LOC: LBO 00:21
PROVIDERS: PCP Nurse Practitioner Family; Visit Provider Nurse Practitioner Family
DX: Z94.0 Kidney transplant status (principal); Z79.60 Long term (current) use of unspecified immunomodulators and immunosuppressants; Z48.298 Encounter for aftercare following other organ transplant
CPT/HCPCS: 36415; 80053; 80197; 81003; 82465; 82565; 83735; 84100; 84156; 84550; 85025; 87799

== ENCOUNTER → 2025-06-30 07:42 | Outpatient (CLI) | payer MEDICARE, SELFPAY ==
--- NOTE | 2025-06-30 06:30 | DI.US_ITS ---
Exam(s) US THYROID EXAM: US THYROID CLINICAL HISTORY: reassess thyroid,multinodular goiter,e04.2. TECHNIQUE: Ultrasound thyroid performed using standard protocol. COMPARISON: US US THYROID from 06/18/2024 FINDINGS: ISTHMUS: 5 mm RIGHT LOBE: Size: 5.7 x 2.6 x 2 point cm Echogenicity: Heterogeneous Vascularity: Normal. Nodules: 1.Upper pole nodule measuring 0.9 x 0.8 x 1.0, unchanged from prior. Solid, isoechoic, wider than tall, smoothly marginated with macrocalcifications and punctate microcalcifications, TR 5. 2. soechoic solid circumscribed nodule in the upper to mid pole measuring 1.1 x 0.7 x 0.9 cm, unchanged from prior. TR 4. 3. Posterior inferior lower lobe 8 millimeter diameter solid circumscribed nodule mildly hypoechoic. Punctate microcalcifications, TR 5. 4. Mixed solid and cystic prescribed isoechoic nodule measuring 0.9 x 1.2 x 1.2 cm. Punctate microcalcifications. TR 4. LEFT LOBE: Size: 6.3 x 2.3 x 2.8 cm Echogenicity: Heterogeneous Vascularity: Normal. Nodules: The previously noted solid isoechoic nodule in the upper pole is not well visualized. 1.1 x 01.0 x 1.1 cm, TR 3. OTHER FINDINGS: No adenopathy. IMPRESSION: Stable appearance of thyroid nodules. DATA REPOSITORY:
== END ==
LOC: DI 07:42
PROVIDERS: PCP Nurse Practitioner Family; Visit Provider Nurse Practitioner Family
DX: E04.2 Nontoxic multinodular goiter (principal)
CPT/HCPCS: 76536